=== PATIENT | male | born 1950 ===

== ENCOUNTER 2023-05-28 08:03 | Outpatient (AMB) | payer OTHER, SELFPAY ==
[2023-05-28 08:10] VITALS: BP 92/58; PULSE 104; TEMP 35.7; O2SAT 99; BMI 24.2
--- NOTE | 2023-05-28 08:10 | MHC.OFFWIV ---
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 Patient is complaining of shortness of breath for the past 3 days. He reports that he does not have a primary care physician and is on no medications. Patient has exertional shortness of breath. Nonproductive cough. Denies any symptoms of chest pain or diaphoresis. No nausea or vomiting. Nonsmoker. Physical Exam Vital Signs: Last Vital Signs Pulse 104 H 05/28/23 08:10 BP 92/58 L 05/28/23 08:10 Pulse Ox 99 05/28/23 08:10 Oxygen Delivery Method Room Air 05/28/23 08:10 BMI result Body Mass Index 24.2 Const General: cooperative and healthy appearing Nutritional Appearance: well nourished Orientation/consciousness: patient oriented x3 Limitations: no limitations HEENT Head: Yes normal to inspection Eyes General: appearance normal, both eyes and all related structures Neck Neck: Yes normal visual inspection Chest Chest palpation & inspection: normal palpation of entire chest wall Resp Other: Tachypnea. Effort & Inspection: normal respiratory effort and able to speak in complete sentences Cardio Rate: tachycardic Rhythm: regular rhythm Heart sounds: S1 normal heart sound present and S2 normal heart sound present Neuro General: patient oriented x3 Office Procedures EKG Details: Sinus tachycardia. [id number], Complete Assessment & Plan Assessment & Plan (1) Shortness of breath: Code(s): R06.02 - Shortness of breath Plan: Chest x-ray images were personally reviewed by me. No infiltrate seen. EKG ordered. Sinus tachycardia. Antibiotic and inhaler called in. Blood work has been ordered. If symptoms do not improve to follow-up here. Orders: Orders XR chest 2V Today R05.9 - Cough, unspecified Basic Metabolic Panel Today R06.02 - Shortness of breath Complete Blood Count no Diff Today R06.02 - Shortness of breath Liver Panel Today R06.02 - Shortness of breath Erythrocyte Sedimentation Rate Today R06.02 - Shortness of breath AMB EKG-In Office Today R07.9 - Chest pain, unspecified SARS-CoV2/FLU/RSV Today R43.9 - Unspecified disturbances of smell and taste Coding Level of Care Code Est Pt Level 4 (13455) Diagnoses Shortness of breath R06.02 CPT Codes EKG - CPT: 52647-[id number], Complete ([id number])
== END 2023-05-28 09:49 | disposition home or self-care (01) ==
PROVIDERS: Visit Provider Internal Medicine
DX: R06.02 Shortness of breath (principal)
CPT/HCPCS: 93000; 99214

== ENCOUNTER 2023-05-28 08:31 | Outpatient (REF) | payer OTHER, SELFPAY ==
--- NOTE | ~2023-05-28 | XR_ITS ---
EXAMINATION: XR CHEST CLINICAL INFORMATION: Cough, unspecified COMPARISON: None available. TECHNIQUE: 2 views of the chest were obtained. FINDINGS: The lungs are well expanded and clear. Heart size is normal. No pleural effusion. There is tortuosity of the thoracic aorta. There are minimal degenerative changes of the thoracic spine. XR/XR chest 2V IMPRESSION: No acute cardiopulmonary disease.
[2023-05-28 11:32] LABS: Hematocrit 45.4 % (42.0-52.0); Mean Corpuscular HGB Conc 35.2 g/dl (31.0-36.0); Mean Corpuscular Hemoglobin 28.6 pg (27.0-33.0); Mean Corpuscular Volume 81.1 fL (80.0-98.0); Mean Platelet Volume 8.9 fL (9.4-12.4); Platelet Count 220 X10*3/uL (160-400); Red Cell Distribution Width 13.1 % (11.0-16.0); White Blood Count 9.4 X10*3/uL (4.8-10.8)
[2023-05-28 11:53] LABS: Alanine Aminotransferase 28 U/L (0-40); Albumin Level 3.8 g/dL (3.5-5.0); Alkaline Phosphatase 79 U/L (39-117); Anion Gap 17 (12-20); Aspartate Amino Transferase 23 U/L (5-37); Bilirubin Direct 0.2 mg/dL (0.0-0.5); Bilirubin Total 0.5 mg/dL (0.0-1.0); Blood Urea Nitrogen 26 mg/dL (9-16); Calcium 9.8 mg/dL (8.4-10.2); Carbon Dioxide 22 mmol/L (22-29); Chloride 101 mmol/L (96-108); Estimated Glomerular Filt Rate 49; Potassium 5.1 mmol/L (3.3-5.1); Sodium 135 mmol/L (135-145); Total Protein 7.3 g/dL (6.5-8.0)
[2023-05-28 12:10] LABS: Erythrocyte Sedimentation Rate 7 MM/HR (0-15)
[2023-05-28 14:19] LABS: Glucose Random 483 mg/dL (60-115)
== END 2023-05-28 08:32 | disposition home or self-care (01) ==
LOC: HO.HMGCX 08:31
PROVIDERS: Visit Provider Internal Medicine
DX: R05.9 Cough, unspecified (principal); R06.02 Shortness of breath
CPT/HCPCS: 36415; 71046; 80048; 80076; 85027; 85652

== ENCOUNTER 2023-05-28 11:24 | Outpatient (REF) | payer OTHER, SELFPAY ==
[2023-05-28 12:21] LABS: Influenza A PCR NEGATIVE (Negative); Influenza B PCR NEGATIVE (Negative); Resp Syncy Virus RNA Qual PCR NEGATIVE (Negative); SARS COV2 PCR INHOUSE NEGATIVE (Negative)
== END 2023-05-28 11:25 | disposition home or self-care (01) ==
LOC: HO.LNP 11:24
PROVIDERS: Visit Provider Internal Medicine
DX: R43.9 Unspecified disturbances of smell and taste (principal); Z11.52 Encounter for screening for COVID-19
CPT/HCPCS: 0241U

== ENCOUNTER 2023-05-30 11:03 | Outpatient (AMB) | payer OTHER, SELFPAY ==
[2023-05-30 11:15] VITALS: BP 98/72; PULSE 90; O2SAT 98; BMI 24.1
--- NOTE | 2023-05-30 11:15 | MHC.PC.OV ---
Vital Signs 05/30/23 11:15 Height 5 ft 9 in Weight 163 lb BMI 24.1 BP 98/72 Blood Pressure Location Rt brachial Position Sitting Pulse 90 Pulse Source Pulse Oximeter Pulse Oximetry (%) 98 Oxygen Delivery Method Room Air Intake Visit Reasons: Diabetes, per Dr Abdiaziz Hayes Note: Pt is here today as a New Patient to [facility]/ DM Allergies No Known Allergies Allergy (Verified 05/30/23 11:46) Medication List - Last Reconciled 05/30/23 by XIOMARA Simpson albuterol sulfate 90 mcg/actuation (Ventolin HFA) 1 inh inhalation QID PRN azithromycin take 500 mg today (day 1), then 250 mg for 4 days (days 2-5) PO metformin 500 mg PO BID Tobacco use date assessed: 05/30/23 Fall risk assessment: No Falls in past year Last assessed Fall Risk: 05/30/23 Dental Screening Dental Screen Date: 05/30/23 Did you have a dental visit in the last 12 months?: Yes Did you have a dental problem in the last 6 months where you did not have access to dental care?: No Was dental information given to patient?: Patient has dentist HPI HPI Comments History of Present Illness Details Patient is a 73-year-old male in to [facility]. He was last seen at the walk-in 2 days prior to arrival for complaint of shortness of breath. He had a chest x-ray, was given azithromycin and albuterol sulfate and states that his shortness of breath has improved significantly. While at that appointment he had labs which demonstrated elevated blood sugar reading. At today's appointment the patient has an A1c of 12.6. This patient has not seen a primary care provider in 3 years. He is a new onset type 2 diabetic. His primary complaint is increased urinary frequency. At the appointment today he denies any medical history. Will need to collect medical records from previous provider. He will receive the Prevnar 20 pneumonia immunization shot in office today. He is up-to-date with his influenza and COVID vaccine. Is up-to-date with his shingle vaccine. He is due for a diabetic eye exam and podiatry evaluation. He will have an education session with a community nurse in our office in regard to administering insulin and how to take his blood sugar readings at home. He will be given referral to endocrinology until his sugars are able to stabilize. [facility] Medical History (Updated 05/30/23 @ 16:04 by XIOMARA Simpson) Diabetes Family History Brother Substance use disorder Social History Housing: House Patient Tobacco Use Status: Former Tobacco user e-Cigarette/Vaping Use: Never Used service: Yes Current occupational status: retired Cognitive needs: No Hearing needs: No Vision needs: Yes Questionnaire PHQ-9 Over the last 2 weeks, how often have you been bothered by any of the following problems? 1. Little interest or pleasure in doing things: not at all 2. Feeling down, depressed, or hopeless: not at all 3. Trouble falling or staying asleep, or sleeping too much: not at all 4. Feeling tired or having little energy: not at all 5. Poor appetite or overeating: not at all 6. Feeling bad about yourself - or that you are a failure or have let yourself or your family down: not at all 7. Trouble concentrating on things, such as reading the newspaper or watching television: not at all 8. Moving or speaking so slowly that other people could have noticed. Or the opposite - being so fidgety or restless that you have been moving around a lot more than usual: not at all 9. Thoughts that you would be better off or of hurting yourself in some way: not at all Total score: 0 Depression Screening Interpretation: Negative Depression Screening Done: Yes 85156 - PHQ-9 Billing: Yes Source: Developed by Drs. Cole Still, Jovanna Gabriel, Hugo Silva and colleagues, with an educational arturo from [email or web address]. Thrive Questionnaire Date Thrive assessed: 05/30/23 I am a: Patient What is your living situation today?: I have a steady place to live Within the past 12 months, did the food you bought not last and you didn't have the money to get more?: Never true Within the past 12 months, did you worry whether your food would run out before you got money to buy more?: Never true Do you have trouble paying for medicines?: No Do you have trouble getting transportation to medical appointments?: No Do you have trouble paying your heating and electricity bill?: No Do you have trouble taking care of your child, family member or friend?: No Do you have trouble with day-to-day activities such as bathing, preparing meals, shopping, managing finances, etc.?: No Are you currently unemployed and looking for a job?: No Are you interested in more education?: No AUDIT C Alcohol Use Questionnaire (AUDIT-C) 1. How often do you have a drink containing alcohol?: Never Total Score: 0 Review of Systems Const Details: Constitutional : No Weight loss, No Fever, No Chills, No Fatigue, No Malaise ENT/Mouth : No sore throat, No Rhinorrhea Eyes: No Eye Pain, No Swelling, No Redness Cardiovascular : No Chest Pain, No SOB, No Dyspnea on Exertion, No Orthopnea, No Edema, No Palpitations Respiratory : No Cough, No Sputum, No Wheezing Gastrointestinal : No Nausea, No Vomiting, No Diarrhea, No Constipation, No abdominal Pain, No Hematochezia, No Melena Genitourinary : No Dysuria, Admits urinary frequency, No Hematuria, Musculoskeletal : No joint pain, No Myalgias, No Joint Swelling Skin : No Skin Lesions, No rash Neuro : No Weakness, No Numbness, No Dizziness, No Headache Psych : No Anxiety/Panic, No Depression Heme/Lymph: No Bruising, No Bleeding,No Lymphadenopathy Endocrine : Admits Polyuria, No Polydipsia All other systems reviewed and are negative Physical exam (Primary Care) Vital Signs: Last Vital Signs Pulse 90 05/30/23 11:15 BP 98/72 05/30/23 11:15 Pulse Ox 98 05/30/23 11:15 Oxygen Delivery Method Room Air 05/30/23 11:15 Care Plan Goal for BP management: Patient will not be started on lisinopril at this time due to current blood pressure readings. Next steps: Patient will have blood pressure recheck in office in 1 day, and then again in 2 weeks. BMI result Body Mass Index 24.1 Tobacco/Smoking Status: Tobacco use Status Tobacco use date assessed 05/30/23 05/30/23 11:37 Patient Tobacco Use Status Former Tobacco user 05/30/23 11:37 e-Cigarette/Vaping Use Never Used 05/30/23 11:37 PHQ-9: PHQ-9 Score PHQ-9: Total score 0 05/30/23 16:00 Depression Screening Interpretation: Negative Thrive Assessment: Date of Thrive Assessment Date Thrive assessed 05/30/23 05/30/23 11:37 Const Other: Appearance: Alert.? Oriented X3.? No acute distress.? Eyes: Pupils equal, round and reactive to light.? Neck: Normal inspection.? Neck supple.? CVS: Normal heart rate and rhythm.? Pulses normal.? Respiratory: No respiratory distress.? Breath sounds normal.? Abdomen: Soft and nontender.? Skin: Skin warm and dry.? Normal skin color.? Normal skin turgor.? Neuro: Oriented X 3.? No motor deficit.? No sensory deficit. CN 2-12 intact Results AMB Hemoglobin A1c AMB Hemoglobin A1c 12.6 % Last Edit by Johanna Morgan CMA on 05/30/23 11:48 Immunizations pneumoc 20-clinton conj-dip cr(PF) 0.5 mL IM syringe Performing Provider: XIOMARA Simpson Performing Location[place] [facility] [place] [facility] Administered by: Johanna Morgan CMA on 05/30/23 12:27 Dose Route Admin Location Dispensed Lot Number Expiration Date NDC Tailor Helper 0.5 mL IM Right Deltoid 0.5 mL [id number] 08/07/24 [id number] [employer] ([employer]Novavax VIS Given Date VIS Provided VIS Publication Date 05/30/23 Single Vaccine 21 Eligibility Eligibility Date Funding Source Not [facility] Eligible 05/30/23 Private Results Reviewed Results Reviewed: Laboratory Last Values Hgb A1c (Clinic) 12.6 % (4.0-6.0) H 05/30/23 11:46 Assessment and Plan Assessment & Plan (1) Diabetes: Comment: This is a new diagnosis to the patient. His A1c in office is elevated significantly at 12.6. He was started on metformin in the walk-in clinic 2 days prior but states he had not taken the medication yet. He was instructed to start taking this medication and the common side effects associated with it. He is also prescribed insulin with a sliding scale with blood sugar readings to be taken before meals. He has an appointment with the Community nurse navigator on 05/31/2023 to go over education and how to take the medication and how to take his blood sugar readings properly. In addition he will have an education session on proper foods to eat diet techniques to lower blood sugar. The patient is agreeable to this plan. Code(s): E11.9 - Type 2 diabetes mellitus without complications Qualifiers: Diabetes mellitus complication status: with hyperglycemia Diabetes mellitus senior living insulin use: without senior living use Diabetes mellitus type: type 2 Qualified Code(s): E11.65 - Type 2 diabetes mellitus with hyperglycemia Plan Take your medications as prescribed. If you were prescribed antibiotics today, it is important that you take your medication to their entirety, do not skip any doses, do not finish them early. Follow-up with your primary care provider this week. Return to the emergency department with new or worsening symptoms. Such as fevers, chills, chest pain, shortness of breath, nausea, vomiting, dizziness, headache, vision changes, lethargy In case of emergency call 911 Orders: Orders AMB Hemoglobin A1c Today Z13.9 - Encounter for screening, unspecified TSH reflex Free T4 Today E11.9 - Type 2 diabetes mellitus without complications Vitamin D 25-OH (D2 and D3) Today E11.9 - Type 2 diabetes mellitus without complications Pneumococcal 20 Immunization Today Z23 - Encounter for immunization Microalbumin, Random (w Creat) Today E11.9 - Type 2 diabetes mellitus without complications PSA,Total (Free>4and<10) Today E11.9 - Type 2 diabetes mellitus without complications Medications: New blood sugar diagnostic (OneTouch Ultra Test strips) Test blood sugar 3 times per day 100 ea 5RF E11.9 - Type 2 diabetes mellitus without complications lancets (OneTouch Delica Plus Lancet) Test blood sugar 3 times per day 100 ea 5RF E11.9 - Type 2 diabetes mellitus without complications insulin lispro 1 sliding scale dose subcut USEASDIRECTD 15 mL 0RF blood-glucose meter (OneTouch Ultra2 Meter) As directed 1 ea 0RF E11.9 - Type 2 diabetes mellitus without complications Refilled metformin 500 mg PO BID 30 tabs 0RF Coding Level of Care Code Est Pt Level 3 (67946) Diagnoses Type 2 diabetes mellitus with hyperglycemia, without long-term current use of insulin E11.65 Diabetes mellitus complication status: with hyperglycemia 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
== END 2023-05-30 15:27 | disposition home or self-care (01) ==
PROVIDERS: PCP Nurse Practitioner Primary Care; Visit Provider Nurse Practitioner Primary Care
DX: E11.65 Type 2 diabetes mellitus with hyperglycemia (principal); Z23 Encounter for immunization
CPT/HCPCS: 83036; 90471; 90677; 99213

== ENCOUNTER 2023-06-06 11:34 | Outpatient (AMB) | payer OTHER, SELFPAY ==
[2023-06-06 11:42] VITALS: BP 90/60; PULSE 100; O2SAT 100; BMI 24.4
--- NOTE | 2023-06-06 11:42 | MHC.PC.OV ---
Vital Signs 06/06/23 11:42 Height 5 ft 9 in Weight 165 lb BMI 24.4 BP 90/60 Blood Pressure Location Rt brachial Position Sitting Pulse 100 Pulse Source Pulse Oximeter Pulse Oximetry (%) 100 Oxygen Delivery Method Room Air Intake Visit Reasons: 1 week Follow up DM Intake Note: Pt is here today for his 1 week f/u DM Allergies No Known Allergies Allergy (Verified 06/06/23 12:15) Medication List - Last Reconciled 06/06/23 by XIOMARA Simpson albuterol sulfate 90 mcg/actuation (Ventolin HFA) 1 inh inhalation QID PRN blood sugar diagnostic (OneTouch Ultra Test strips) Test blood sugar 3 times per day blood-glucose meter (Argantealuch Ultra2 Meter) As directed lancets (MoveaTouch Delica Plus Lancet) Test blood sugar 3 times per day metformin 500 mg PO BID Tobacco use date assessed: 05/30/23 Fall risk assessment: No Falls in past year Last assessed Fall Risk: 06/06/23 Dental Screening Dental Screen Date: 06/06/23 Did you have a dental visit in the last 12 months?: Yes Did you have a dental problem in the last 6 months where you did not have access to dental care?: Yes Was dental information given to patient?: Patient has dentist HPI HPI Comments History of Present Illness Details Patient is a 73-year-old male here for diabetic follow-up. This patient is a newly diagnosed type 2 diabetic. At his last office visit 1 week prior he had an A1c in office of 12.6. He had been started on 500 mg of metformin p.o. b.i.d., but had not started taking at this time. Patient states he has since started taking the metformin as prescribed. His random glucose today in office is 231. He has no complaints at the time of the appointment. The patient states that he has not had any side effects from the metformin, including any GI distress. He has an in office meeting today with the community nurse navigator to have an education session on how to properly take his blood sugar levels at home. Treatment plan will be for the patient to continue to take his metformin as prescribed and to take his sugar every day for the next week. He will follow-up in 1 week to evaluate his blood sugar levels and to adjust his regime if indicated. [facility] Medical History Diabetes Family History Brother Substance use disorder Social History Housing: House Patient Tobacco Use Status: Former Tobacco user e-Cigarette/Vaping Use: Never Used service: Yes Current occupational status: retired Cognitive needs: No Hearing needs: No Vision needs: Yes Questionnaire Thrive Questionnaire Date Thrive assessed: 05/30/23 Review of Systems Const Details: Constitutional : No Weight loss, No Fever, No Chills, No Fatigue, No Malaise Eyes: No Eye Pain, No Swelling, No Redness Cardiovascular : No Chest Pain, No SOB, No Dyspnea on Exertion, No Orthopnea, No Edema, No Palpitations Respiratory : No Cough, No Sputum, No Wheezing Gastrointestinal : No Nausea, No Vomiting, No Diarrhea, No Constipation, No abdominal Pain, No Hematochezia, No Melena Genitourinary : No Dysuria, No Urinary Frequency, No Hematuria, Musculoskeletal : No joint pain, No Myalgias, No Joint Swelling Skin : No Skin Lesions, No rash Neuro : No Weakness, No Numbness, No Dizziness, No Headache Psych : No Anxiety/Panic, No Depression Heme/Lymph: No Bruising, No Bleeding,No Lymphadenopathy Endocrine : No Polyuria, No Polydipsia All other systems reviewed and are negative Physical exam (Primary Care) Vital Signs: Last Vital Signs Pulse 100 06/06/23 11:42 BP 90/60 06/06/23 11:42 Pulse Ox 100 06/06/23 11:42 Oxygen Delivery Method Room Air 06/06/23 11:42 Care Plan Goal for BP management: Patient educated to drink more water. Educated to move and change positions slowly. He has been educated to take blood pressure measurements at home. BMI result Body Mass Index 24.4 Tobacco/Smoking Status: Tobacco use Status Tobacco use date assessed 05/30/23 06/06/23 11:42 Patient Tobacco Use Status Former Tobacco user 06/06/23 11:42 e-Cigarette/Vaping Use Never Used 06/06/23 11:42 Thrive Assessment: Date of Thrive Assessment Date Thrive assessed 05/30/23 06/06/23 11:42 Const Other: Appearance: Alert.? Oriented X3.? No acute distress.? Neck: Normal inspection.? Neck supple.? CVS: Normal heart rate and rhythm.? Pulses normal.? Respiratory: No respiratory distress.? Breath sounds normal.? Skin: Skin warm and dry.? Normal skin color.? Normal skin turgor.? Extremities: No lower extremity edema.? Neuro: Oriented X 3.? No motor deficit.? No sensory deficit. CN 2-12 intact Results AMB Random Glucose (hemocue) AMB Random Glucose (hemocue) 231 mg/dL Last Edit by Johanna Morgan CMA on 06/06/23 11:43 Results Reviewed Results Reviewed: Laboratory Last Values Random Glu (Clinic) 231 mg/dL 06/06/23 11:42 Reviewed results with patient. Assessment and Plan Assessment & Plan (1) Diabetes: Comment: Patient is a newly diagnosed type 2 diabetic has recently been started on 500 mg of metformin to be taken p.o. b.i.d. he has been taking this medication for the past week his random glucose in office today was 231. He had an office education session on how to take his blood sugar readings at home with his new glucometer. He will continue to take blood sugar measurements at home and will have a follow-up appointment 1 week. He has been educated on the signs of worsening symptoms and when to return to the office or when to report to the emergency room. He is agreeable to this plan Code(s): E11.9 - Type 2 diabetes mellitus without complications Qualifiers: Diabetes mellitus type: type 2 Diabetes mellitus senior living insulin use: without technician terminal and repeater use Diabetes mellitus complication status: with hyperglycemia Qualified Code(s): E11.65 - Type 2 diabetes mellitus with hyperglycemia Plan Follow-up in 1 week. Orders: Orders AMB Random Glucose (hemocue) Today E11.9 - Type 2 diabetes mellitus without complications Medications: Discontinued insulin aspart U-100 (Novolog FlexPen U-100 Insulin aspart) Discontinued Reason: No Longer Medically Relevant 1 sliding scale dose subcut USEASDIRECTD 15 mL 0RF insulin glargine (Lantus Solostar U-100 Insulin) Discontinued Reason: Entered in error 24 units (0.24 mL) subcut QAM 15 mL 0RF Coding Level of Care Code Est Pt Level 3 (67356) Diagnoses Type 2 diabetes mellitus with hyperglycemia, without long-term current use of insulin E11.65 Diabetes mellitus type: type 2 Diabetes mellitus senior living insulin use: without technician terminal and repeater use Diabetes mellitus complication status: with hyperglycemia Time Spent (min) 30
== END 2023-06-06 13:02 | disposition home or self-care (01) ==
LOC: HO.HMGC 11:34
PROVIDERS: PCP Nurse Practitioner Primary Care; Visit Provider Nurse Practitioner Primary Care
DX: E11.65 Type 2 diabetes mellitus with hyperglycemia (principal)
CPT/HCPCS: 82948; 99213

== ENCOUNTER 2023-06-07 09:49 | Outpatient (REF) | payer OTHER, SELFPAY ==
[2023-06-07 14:10] LABS: Alanine Aminotransferase 25 U/L (0-40); Albumin Level 4.1 g/dL (3.5-5.0); Alkaline Phosphatase 71 U/L (39-117); Anion Gap 15 (12-20); Aspartate Amino Transferase 24 U/L (5-37); Bilirubin Total 0.6 mg/dL (0.0-1.0); Blood Urea Nitrogen 23 mg/dL (9-16); Calcium 9.7 mg/dL (8.4-10.2); Carbon Dioxide 24 mmol/L (22-29); Chloride 101 mmol/L (96-108); Cholesterol 234 mg/dL (<200); Estimated Glomerular Filt Rate 50; Glucose Random 268 mg/dL (60-115); HDL Cholesterol 55 mg/dL (>40); LDL Cholesterol Calculated 150 mg/dL (<100); Potassium 4.1 mmol/L (3.3-5.1); Sodium 136 mmol/L (135-145); Total Protein 7.5 g/dL (6.5-8.0); Triglycerides 149 mg/dL (<150)
[2023-06-07 14:15] LABS: TSH reflex Free T4 2.28 uIU/mL (0.32-4.0)
[2023-06-07 14:16] LABS: Creatinine Urine 101.81 mg/dL; Microalbum/Creatinine Ratio Ur 22.5 ug/mg cr (<30)
[2023-06-07 14:26] LABS: PSA,Total (Free>4and<10) < 0.10 ng/mL (0.00-4.00)
[2023-06-12 13:07] LABS: Vitamin D 25-OH, D2 <4 ng/mL; Vitamin D 25-OH, D3 25 ng/mL; Vitamin D 25-OH, Total 25 ng/mL (30-100)
== END 2023-06-07 09:50 | disposition home or self-care (01) ==
LOC: HO.HMGCLDS 09:49
PROVIDERS: PCP Nurse Practitioner Primary Care; Visit Provider Nurse Practitioner Primary Care
DX: Z12.5 Encounter for screening for malignant neoplasm of prostate (principal); Z13.220 Encounter for screening for lipoid disorders; E11.9 Type 2 diabetes mellitus without complications
CPT/HCPCS: 36415; 80053; 80061; 82043; 82306; 82570; 84153; 84443

== ENCOUNTER 2023-06-13 11:21 | Outpatient (AMB) | payer OTHER, SELFPAY ==
[2023-06-13 11:27] VITALS: BP 100/64; PULSE 100; O2SAT 97; BMI 24.0
--- NOTE | 2023-06-13 11:27 | A.OFFPC_ITS ---
Vital Signs 06/13/23 11:27 06/13/23 12:08 Height 5 ft 9 in Weight 162 lb 8 oz BMI 24.0 BP 100/64 Blood Pressure Location Rt brachial Position Sitting Pulse 100 92 Pulse Source Pulse Oximeter Auscultation Pulse Oximetry (%) 97 Oxygen Delivery Method Room Air Intake Visit Reasons: Followup diabetes, ok per Robb Intake Note: Pt is here to follow up for his DM Allergies No Known Allergies Allergy (Verified 06/13/23 11:32) Medication List - Last Reconciled 06/13/23 by XIOMARA Simpson albuterol sulfate 90 mcg/actuation (Ventolin HFA) 1 inh inhalation QID PRN blood sugar diagnostic (Eventstagr.amTouch Ultra Test strips) Test blood sugar 3 times per day blood-glucose meter (Audasteruch Ultra2 Meter) As directed lancets (Eventstagr.amTouch Delica Plus Lancet) Test blood sugar 3 times per day metformin 500 mg PO BID Tobacco use date assessed: 06/13/23 Fall risk assessment: No Falls in past year Last assessed Fall Risk: 06/13/23 Dental Screening Dental Screen Date: 06/13/23 Did you have a dental visit in the last 12 months?: Yes Did you have a dental problem in the last 6 months where you did not have access to dental care?: No Was dental information given to patient?: Patient has dentist HPI HPI Comments History of Present Illness Details Patient is a 73-year-old male in today for a diabetic follow-up. He is a recently diagnosed diabetic type 2, and was started on metformin. He has had to education sessions with our community nurse navigator and is having difficulty learning how to check his blood sugar. He will have another Education today after this appointment. His in office POC was 259. He has no complaints of polyuria, dizziness, shortness of breath, chest pain, diarrhea, vomiting or constipation. [facility] Medical History Diabetes Family History Brother Substance use disorder Social History Housing: House Patient Tobacco Use Status: Former Tobacco user e-Cigarette/Vaping Use: Never Used service: Yes Current occupational status: retired Cognitive needs: No Hearing needs: No Vision needs: Yes Questionnaire PHQ-9 Over the last 2 weeks, how often have you been bothered by any of the following problems? 1. Little interest or pleasure in doing things: not at all 2. Feeling down, depressed, or hopeless: not at all 3. Trouble falling or staying asleep, or sleeping too much: not at all 4. Feeling tired or having little energy: not at all 5. Poor appetite or overeating: not at all 6. Feeling bad about yourself - or that you are a failure or have let yourself or your family down: not at all 7. Trouble concentrating on things, such as reading the newspaper or watching television: not at all 8. Moving or speaking so slowly that other people could have noticed. Or the opposite - being so fidgety or restless that you have been moving around a lot more than usual: not at all 9. Thoughts that you would be better off or of hurting yourself in some way: not at all Total score: 0 Depression Screening Interpretation: Negative Depression Screening Done: Yes 10710 - PHQ-9 Billing: Yes Source: Developed by Drs. Cole Still, Jovanna Gabriel, Hugo Silva and colleagues, with an educational arturo from [employer]. Thrive Questionnaire Date Thrive assessed: 06/13/23 I am a: Patient What is your living situation today?: I have a steady place to live Within the past 12 months, did the food you bought not last and you didn't have the money to get more?: Never true Within the past 12 months, did you worry whether your food would run out before you got money to buy more?: Never true Do you have trouble paying for medicines?: No Do you have trouble getting transportation to medical appointments?: No Do you have trouble paying your heating and electricity bill?: No Do you have trouble taking care of your child, family member or friend?: No Do you have trouble with day-to-day activities such as bathing, preparing meals, shopping, managing finances, etc.?: No Are you currently unemployed and looking for a job?: No Are you interested in more education?: No AUDIT C Alcohol Use Questionnaire (AUDIT-C) 1. How often do you have a drink containing alcohol?: Never Total Score: 0 JUDY-7 AMB Questionnaire JUDY-7 Date JUDY - 7 assessed: 06/13/23 Feeling nervous, anxious, or on edge: 0 = Not at all Not being able to stop or control worryin = Not at all Worrying too much about different things: 0 = Not at all Trouble relaxin = Not at all Being so restless that it is hard to sit still: 0 = Not at all Becoming easily annoyed or irritable: 0 = Not at all Feeling afraid as if something awful might happen: 0 = Not at all Total JUDY-7 score (0-4 normal; 5-9 mild; 10-14 moderate; 15-21 severe): 0 Source: Developed by Drs. Cole Still, Jovanna Gabriel, Hugo Silva and colleagues, with an educational arturo from [employer]. JUDY-7 Assessment Billing JUDY-7 Assessment Tool: JUDY-7 Assessment 91627 Review of Systems Const Details: Constitutional : No Weight loss, No Fever, No Chills, No Fatigue, No Malaise Eyes: No Eye Pain, No Swelling, No Redness Cardiovascular : No Chest Pain, No SOB, No Dyspnea on Exertion, No Orthopnea, No Edema, No Palpitations Respiratory : No Cough, No Sputum, No Wheezing Gastrointestinal : No Nausea, No Vomiting, No Diarrhea, No Constipation, No abdominal Pain, No Hematochezia, No Melena Genitourinary : No Dysuria, No Urinary Frequency, No Hematuria, Musculoskeletal : No joint pain, No Myalgias, No Joint Swelling Skin : No Skin Lesions, No rash Neuro : No Weakness, No Numbness, No Dizziness, No Headache Psych : No Anxiety/Panic, No Depression Heme/Lymph: No Bruising, No Bleeding,No Lymphadenopathy Endocrine : No Polyuria, No Polydipsia All other systems reviewed and are negative Physical exam (Primary Care) Vital Signs: Last Vital Signs Pulse 92 06/13/23 12:08 BP 100/64 06/13/23 11:27 Pulse Ox 97 06/13/23 11:27 Oxygen Delivery Method Room Air 06/13/23 11:27 Vital signs have been reviewed are stay BMI result Body Mass Index 24.0 Tobacco/Smoking Status: Tobacco use Status Tobacco use date assessed 06/13/23 06/13/23 11:36 Patient Tobacco Use Status Former Tobacco user 06/13/23 11:28 e-Cigarette/Vaping Use Never Used 06/13/23 11:28 PHQ-9: PHQ-9 Score PHQ-9: Total score 0 06/13/23 11:36 Depression Screening Interpretation: Negative Thrive Assessment: Date of Thrive Assessment Date Thrive assessed 06/13/23 06/13/23 11:36 Const Other: Appearance: Alert.? Oriented X3.? No acute distress.? Eyes: Pupils equal, round and reactive to light.? Neck: Normal inspection.? Neck supple.? CVS: Normal heart rate and rhythm.? Pulses normal.? Respiratory: No respiratory distress.? Breath sounds normal.? Abdomen: Soft and nontender.? Skin: Skin warm and dry.? Normal skin color.? Normal skin turgor.? Neuro: Oriented X 3.? No motor deficit.? No sensory deficit. CN 2-12 intact. Sensate to monofilament. During the review of systems and physical exam patient seems to be forgetful when mentioning things. He also seems to go off on tangents. Results AMB Random Glucose (hemocue) AMB Random Glucose (hemocue) 259 mg/dL Last Edit by JOCE Mullen 06/13/23 11:47 Results Reviewed Results Reviewed: Laboratory Last Values Random Glu (Clinic) 259 mg/dL 06/13/23 11:44 Assessment and Plan Assessment & Plan (1) Diabetes: Comment: Patient has been taking 500 mg p.o. b.i.d. of metformin over the past month. His in office sugar today was 259. Will increase his dosage of metformin at today's appointment. Patient has been educated on side effects of these medications. Code(s): E11.9 - Type 2 diabetes mellitus without complications Qualifiers: Diabetes mellitus complication status: with hyperglycemia Diabetes mellitus intermediate frame tender insulin use: without mcfp use Diabetes mellitus type: type 2 Qualified Code(s): E11.65 - Type 2 diabetes mellitus with hyperglycemia Plan: Take your medications as prescribed. If you were prescribed antibiotics today, it is important that you take your medication to their entirety, do not skip any doses, do not finish them early. Follow-up with your primary care provider this week. Return to the emergency department with new or worsening symptoms. Such as fevers, chills, chest pain, shortness of breath, nausea, vomiting, dizziness, headache, vision changes, lethargy In case of emergency call 911 (2) Forgetfulness: Comment: During review of systems and physical exam patient seems to struggle with recall at times. He is also having difficulty learning how to check his blood sugars at home. Will refer for neuro and psychiatric eval. Code(s): R68.89 - Other general symptoms and signs Plan Patient will follow-up in 1 month. Orders: Orders AMB Random Glucose (hemocue) Today E11.9 - Type 2 diabetes mellitus without complications Referrals Neuropsychiatry Referral R68.89 - Other general symptoms and signs Medications: Changed From metformin 500 mg PO BID 30 tabs 0RF To metformin 850 mg PO BID 90 tabs 0RF Coding Level of Care Code Est Pt Level 3 (36351) Diagnoses Type 2 diabetes mellitus with hyperglycemia, without long-term current use of insulin E11.65 Diabetes mellitus complication status: with hyperglycemia Diabetes mellitus intermediate frame tender insulin use: without intermediate frame tender use Diabetes mellitus type: type 2 Forgetfulness R68.89 Additional Codes JUDY-7 Assessment Billing - JUDY-7 Assessment Tool: JUDY-7 Assessment 62106 ([id number]) Time Spent (min) 30
[2023-06-13 12:08] VITALS: PULSE 92
== END 2023-06-13 12:55 | disposition home or self-care (01) ==
LOC: HO.HMGC 11:21
PROVIDERS: PCP Nurse Practitioner Primary Care; Visit Provider Nurse Practitioner Primary Care
DX: E11.65 Type 2 diabetes mellitus with hyperglycemia (principal); R68.89 Other general symptoms and signs
CPT/HCPCS: 82948; 99213

== ENCOUNTER 2023-06-14 09:21 | Outpatient (AMB) | payer OTHER, SELFPAY ==
--- NOTE | 2023-06-14 09:41 | AM.OFFVISNUR ---
Intake Intake Visit Reasons: glucose reading Intake Note: Pt in today for DM teaching. Reports I dont know what my sugar is bc I cant find the pokers. POC performed, education provided. Allergies No Known Allergies Allergy (Verified 06/13/23 11:32) Results AMB Fasting Glucose AMB Fasting Glucose 358 mg/dL Last Edit by Reji Jeffers RN on 06/14/23 09:52 Coding Level of Care Code Procedure Only Assessment & Plan Assessment & Plan Orders: Orders AMB Fasting Glucose Today Z13.9 - Encounter for screening, unspecified
== END 2023-06-14 10:12 | disposition home or self-care (01) ==
LOC: HO.HMGC 09:21
PROVIDERS: PCP Nurse Practitioner Primary Care; Visit Provider Nurse Practitioner Primary Care
DX: E11.9 Type 2 diabetes mellitus without complications (principal)
CPT/HCPCS: 82948

== ENCOUNTER 2023-07-15 09:57 | Outpatient (AMB) | payer OTHER, SELFPAY ==
[2023-07-15 09:59] VITALS: BP 122/72; PULSE 100; O2SAT 98; BMI 24.5
--- NOTE | 2023-07-15 09:59 | MHC.PC.OV ---
Vital Signs 07/15/23 09:59 Height 5 ft 9 in Weight 166 lb 2 oz BMI 24.5 BP 122/72 Blood Pressure Location Lt brachial Position Sitting Pulse 100 Pulse Source Pulse Oximeter Pulse Oximetry (%) 98 Oxygen Delivery Method Room Air Intake Visit Reasons: Followup diabetes, ok per Robb Intake Note: Pt is here today to f/u diabetes. Allergies No Known Allergies Allergy (Verified 07/15/23 10:46) Medication List - Last Reconciled 07/15/23 by XIOMARA Simpson albuterol sulfate 90 mcg/actuation (Ventolin HFA) 1 inh inhalation QID PRN atorvastatin 20 mg PO DAILY blood sugar diagnostic (OneTouch Ultra Test strips) Test blood sugar 3 times per day blood-glucose meter ([employer] Ultra2 Meter) As directed lancets (PetsDx Veterinary ImagingTouch Delica Plus Lancet) Test blood sugar 3 times per day lancets (Easy Touch Safety Lancets) Test blood sugar 3 times per day lisinopril 2.5 mg PO DAILY metformin 850 mg PO BID Tobacco use date assessed: 07/15/23 Fall risk assessment: No Falls in past year Last assessed Fall Risk: 07/15/23 Dental Screening Dental Screen Date: 07/15/23 Did you have a dental visit in the last 12 months?: Yes Did you have a dental problem in the last 6 months where you did not have access to dental care?: No Was dental information given to patient?: Patient has dentist HPI HPI Comments History of Present Illness Details Patient is a 73-year-old male in today for a diabetes follow-up. The patient is newly diagnosed diabetic, he has had several Education sessions on how to take his blood sugar readings at home. He was originally started on 500 mg p.o. b.i.d., and was titrated up to 850 mg p.o. b.i.d. at his previous appointment. He has referral to Ophthalmology and Podiatry ordered. The patient states that he is feeling better over the past month, not as tired or lethargic. He has been taking his metformin as prescribed, and is due for a new refill, will order. He still has difficulty with taking blood sugar measurements at home, and states that he was only able to get 1 reading at home over the past 3 weeks. His in office A1c today's 11.7. Patient is going to be started on lisinopril and atorvastatin. Patient would like to continue to try to limit sugar and bread consumption instead of increasing metformin dose this time. The patient again was educated on the importance of keeping blood sugar readings in range. The patient has no chief complaint at today's appointment. Will order community nurse navigator referral. [facility] Medical History Diabetes Family History Brother Substance use disorder Social History Housing: House Patient Tobacco Use Status: Former Tobacco user e-Cigarette/Vaping Use: Never Used service: Yes Current occupational status: retired Cognitive needs: No Hearing needs: No Vision needs: Yes Questionnaire Thrive Questionnaire Date Thrive assessed: 06/13/23 AUDIT C Alcohol Use Questionnaire (AUDIT-C) 1. How often do you have a drink containing alcohol?: Never 3. How often do you have six or more drinks on one occasion?: Never Total Score: 0 Score Reviewed/Action Taken: Yes JUDY-7 AMB Questionnaire JUDY-7 Date JUDY - 7 assessed: 06/13/23 Source: Developed by Drs. Cole Still, Jovanna Gabriel, Hugo Silva and colleagues, with an educational arturo from [employer]. Review of Systems Const Details: Constitutional : No Weight loss, No Fever, No Chills, No Fatigue, No Malaise ENT/Mouth : No sore throat, No Rhinorrhea Eyes: No Eye Pain, No Swelling, No Redness Cardiovascular : No Chest Pain, No SOB, No Dyspnea on Exertion, No Orthopnea, No Edema, No Palpitations Respiratory : No Cough, No Sputum, No Wheezing Gastrointestinal : No Nausea, No Vomiting, No Diarrhea, No Constipation, No abdominal Pain, No Hematochezia, No Melena Genitourinary : No Dysuria, No Urinary Frequency, No Hematuria, Musculoskeletal : No joint pain, No Myalgias, No Joint Swelling Skin : No Skin Lesions, No rash Neuro : No Weakness, No Numbness, No Dizziness, No Headache Psych : No Anxiety/Panic, No Depression Heme/Lymph: No Bruising, No Bleeding,No Lymphadenopathy Endocrine : Admits some Polyuria, No Polydipsia All other systems reviewed and are negative Physical exam (Primary Care) Vital Signs: Last Vital Signs Pulse 100 07/15/23 09:59 BP 122/72 07/15/23 09:59 Pulse Ox 98 07/15/23 09:59 Oxygen Delivery Method Room Air 07/15/23 09:59 Care Plan Goal for BP management: Patient will take blood pressure measurements at home. BMI result Body Mass Index 24.5 Tobacco/Smoking Status: Tobacco use Status Tobacco use date assessed 07/15/23 07/15/23 10:02 Patient Tobacco Use Status Former Tobacco user 07/15/23 09:59 e-Cigarette/Vaping Use Never Used 07/15/23 09:59 Thrive Assessment: Date of Thrive Assessment Date Thrive assessed 06/13/23 07/15/23 09:59 Const Other: Eyes: Pupils equal, round and reactive to light.?No photphobia ENT: Pharynx normal.?Full ROM Neck: Normal inspection.? Neck supple.? CVS: Normal heart rate and rhythm.? Pulses normal.? Respiratory: No respiratory distress.? Breath sounds normal.? Skin: Skin warm and dry.? Normal skin color.? Normal skin turgor.? Neuro: Oriented X 3.? No motor deficit.? No sensory deficit. Sensate to monofiliment. CN 2-12 intact Assessment and Plan Assessment & Plan (1) Diabetes: Comment: Patient will take 850 mg Metformin PO BID. Will add 10 mg empagliflozin He will try to adhere to a diabetic diet. He has been started on low-dose lisinopril, and atorvastatin. Patient has been instructed to try to take blood pressure measurements at home, will refer to community nurse navigation for assistance. Patient has referral to Ophthalmology and Podiatry. Code(s): E11.9 - Type 2 diabetes mellitus without complications Qualifiers: Diabetes mellitus complication status: with hyperglycemia Diabetes mellitus fdc insulin use: without fdc use Diabetes mellitus type: type 2 Qualified Code(s): E11.65 - Type 2 diabetes mellitus with hyperglycemia (2) Hyperlipidemia: Comment: Patient has been started on atorvastatin. Code(s): E78.5 - Hyperlipidemia, unspecified Qualifiers: Hyperlipidemia type: unspecified Qualified Code(s): E78.5 - Hyperlipidemia, unspecified Plan: Take your medications as prescribed. If you were prescribed antibiotics today, it is important that you take your medication to their entirety, do not skip any doses, do not finish them early. Follow-up with your primary care provider this week. Return to the emergency department with new or worsening symptoms. Such as fevers, chills, chest pain, shortness of breath, nausea, vomiting, dizziness, headache, vision changes, lethargy In case of emergency call 911 Plan Patient will follow-up in 3 months. Orders: Referrals Podiatry Referral E11.9 - Type 2 diabetes mellitus without complications Ophthalmology Referral E11.9 - Type 2 diabetes mellitus without complications Medications: New atorvastatin 20 mg PO DAILY 90 tabs 0RF lisinopril 2.5 mg PO DAILY 90 tabs 0RF Refilled metformin 850 mg PO BID 90 tabs 0RF Coding Level of Care Code Est Pt Level 3 (82390) Diagnoses Type 2 diabetes mellitus with hyperglycemia, without long-term current use of insulin E11.65 Diabetes mellitus complication status: with hyperglycemia Diabetes mellitus fdc insulin use: without dampener operator use Diabetes mellitus type: type 2 Hyperlipidemia, unspecified hyperlipidemia type E78.5 Hyperlipidemia type: unspecified Time Spent (min) 35
== END 2023-07-15 11:29 | disposition home or self-care (01) ==
PROVIDERS: PCP Nurse Practitioner Primary Care; Visit Provider Nurse Practitioner Primary Care
DX: E11.65 Type 2 diabetes mellitus with hyperglycemia (principal)
CPT/HCPCS: 83036; 99213

== ENCOUNTER 2023-09-04 12:55 | Outpatient (AMB) | payer OTHER, SELFPAY ==
[2023-09-04 12:59] VITALS: PULSE 111; TEMP 34.1; O2SAT 99
--- NOTE | 2023-09-04 12:59 | MHC.OFFWIV ---
Intake Vital Signs 09/04/23 12:59 Height 5 ft 9 in Pulse 111 H Pulse Source Pulse Oximeter Temp 93.4 F L Temp Source Temporal Artery Scan Pulse Oximetry (%) 99 Oxygen Delivery Method Nasal Cannula Oxygen Flow Rate 4 Intake Visit Reasons: EP SOB Intake Note: pt is here today for SOB Patient Tobacco Use Status: Former Tobacco user Allergies No Known Allergies Allergy (Verified 09/04/23 13:09) Do you need a note to return to daycare/school/sports/work: No HPI HPI Comments History of Present Illness Details 73-year-old man presents with severe shortness of breath that occurred while shopping next door. Patient was put on oxygen and is gasping for air on 4 L of oxygen. Vital signs show his temp at 93.4 degrees and were unable to obtain a blood pressure [facility] Medical History Diabetes Family History Brother Substance use disorder Social History Housing: House Patient Tobacco Use Status: Former Tobacco user e-Cigarette/Vaping Use: Never Used service: Yes Current occupational status: retired Cognitive needs: No Hearing needs: No Vision needs: Yes Review of Systems Const Reports lethargy Card Reports dyspnea (sudden onset, severe) Resp Reports dyspnea (sudden onset, severe) Physical Exam Vital Signs: Last Vital Signs Temp 93.4 F L 09/04/23 12:59 Pulse 111 H 09/04/23 12:59 Pulse Ox 99 09/04/23 12:59 Oxygen Delivery Method Nasal Cannula 09/04/23 12:59 Oxygen Flow Rate 4 09/04/23 12:59 Const General: acute distress respiratory and diaphoretic Resp Effort & Inspection: grunting Cardio Rate: regular rate Assessment & Plan Assessment & Plan (1) SOB (shortness of breath): Code(s): R06.02 - Shortness of breath Plan Patient was sent to emergency department by ambulance. Coding Level of Care Code Est Pt Level 3 (47003) Diagnoses SOB (shortness of breath) R06.02
== END 2023-09-04 14:05 | disposition home or self-care (01) ==
PROVIDERS: PCP Nurse Practitioner Primary Care; Visit Provider Physician Assistant Medical
DX: R06.02 Shortness of breath (principal)
CPT/HCPCS: 99213

== ENCOUNTER 2023-09-04 14:00 | Emergency (ER) | payer OTHER, SELFPAY ==
--- NOTE | 2023-09-04 | ECG_ITS ---
Test Reason : sob Blood Pressure : / mmHG Vent. Rate : 077 BPM Atrial Rate : 077 BPM P-R Int : 156 ms QRS Dur : 080 ms QT Int : 414 ms P-R-T Axes : 065 095 082 degrees QTc Int : 468 ms Normal sinus rhythm Rightward axis Borderline ECG When compared with ECG of 04-SEP-2023 14:21, No significant change was found Referred By: Alan oRwan Electronically Signed By:Humberto Walker
--- NOTE | ~2023-09-04 | XR_ITS ---
EXAMINATION: XR CHEST CLINICAL INFORMATION: Dyspnea COMPARISON: None available. TECHNIQUE: Frontal view of the chest was obtained. FINDINGS: No significant abnormality is noted involving the heart, lungs, mediastinum, bony thorax or soft tissues. XR/XR chest 1V IMPRESSION: Unremarkable chest examination.
[2023-09-04 14:16] VITALS: BP 128/80; BP 131/64; PULSE 80; PULSE 85; RESP 20; TEMP 37.1; O2SAT 96; O2SAT 98; BMI 20.7
[2023-09-04 14:42] LABS: MANUAL DIFF FLAG NO
[2023-09-04 14:44] LABS: Basophils Absolute Auto 0.1 X10*3/uL (0.0-0.2); Basophils Percent Auto 0.7 % (0-2); Eosinophils Percent Auto 0.5 % (0-4); Hematocrit 45.1 % (42.0-52.0); Hemoglobin 16.1 g/dl (14.0-18.0); Imm Gran Abs Auto 0.03 X10*3/uL (0.00-0.03); Imm Gran Pct Auto 0.3 % (0.0-0.4); Lymphocytes Absolute Auto 1.6 X10*3/uL (1.2-4.9); Lymphocytes Percent Auto 18.5 % (20-40); Mean Corpuscular HGB Conc 35.7 g/dl (31.0-36.0); Mean Corpuscular Hemoglobin 29.2 pg (27.0-33.0); Mean Corpuscular Volume 81.9 fL (80.0-98.0); Mean Platelet Volume 8.4 fL (9.4-12.4); Monocytes Absolute Auto 0.7 X10*3/uL (0.1-1.2); Monocytes Percent Auto 7.5 % (2-11); Neutrophils Absolute Auto 6.3 x10*3/uL (2.0-8.3); Neutrophils Percent Auto 72.5 % (45-73); Platelet Count 178 X10*3/uL (160-400); Red Blood Count 5.51 X10*6/uL (4.60-5.80); Red Cell Distribution Width 13.1 % (11.0-16.0); White Blood Count 8.7 X10*3/uL (4.8-10.8)
[2023-09-04 14:56] LABS: Estimated Average Glucose 237 mg/dL; Hemoglobin A1c % 9.9 % (<6.0)
[2023-09-04 15:06] LABS: Troponin-I High Sensitivity < 2.7 ng/L (<3.5-35.0)
[2023-09-04 15:08] LABS: Alanine Aminotransferase 15 U/L (0-40); Albumin Level 3.9 g/dL (3.5-5.0); Alkaline Phosphatase 75 U/L (39-117); Anion Gap 22 (12-20); Aspartate Amino Transferase 11 U/L (5-37); Bilirubin Total 1.1 mg/dL (0.0-1.0); Blood Urea Nitrogen 24 mg/dL (9-16); Carbon Dioxide 20 mmol/L (22-29); Chloride 105 mmol/L (96-108); Creatinine Clr Calc Pharmacy 30.1; Estimated Glomerular Filt Rate 35; Magnesium 2.4 mg/dL (1.6-2.6); Potassium 5.7 mmol/L (3.3-5.1); Sodium 141 mmol/L (135-145); Total Protein 7.2 g/dL (6.5-8.0)
[2023-09-04 15:10] LABS: Glucose Random 436 mg/dL (60-115)
--- NOTE | 2023-09-04 15:18 | ED.SOB ---
HPI - SOB/Dyspnea General Chief Complaint: Dyspnea Stated Complaint: DIFF BREATHING Time Seen by Provider: 09/04/23 15:17 History of Present Illness HPI Narrative: The patient is a 73-year-old man who lives alone in [place]. I believe he has a history of type 2 diabetes and has been on metformin. The diagnosis of diabetes seems to be relatively new. He believes he has only been on medications for a few months. The patient has also been started on empagliflozin (Sundeepdiance). This was started on July 18. The patient says that today he drove himself to a store. When he got to the store he felt short of breath. He was near an urgent care and so he went to the urgent care. At the urgent care he was felt to look short of breath and they called 911 and he was brought to the hospital. The patient has shortness of breath has improved so that he was not really feeling short of breath at the time I interviewed him. He denies any chest pain. No pleuritic pain. No cough or sputum. No abdominal pain, nausea, vomiting. He says he felt fine yesterday and ate normally yesterday. Related Data Previous Rx's Medication Instructions Recorded albuterol sulfate 90 mcg/actuation 1 inh inhalation QID PRN shortness 05/28/23 aerosol inhaler (Ventolin HFA) of breath or wheezing #8.5 grams blood sugar diagnostic (OneTouch #100 ea 05/30/23 Ultra Test strips) blood-glucose meter (OneTouch #1 ea 05/30/23 Ultra2 Meter) lancets 30 gauge (OneTouch Delica #100 ea 05/30/23 Plus Lancet) lancets 30 gauge (Easy Touch #200 ea 06/13/23 Safety Lancets) atorvastatin 20 mg tablet 20 mg PO DAILY #90 tabs 07/15/23 metformin 850 mg tablet 850 mg PO BID #90 tabs 07/15/23 empagliflozin 10 mg tablet 10 mg PO DAILY #90 tabs 07/18/23 (Jardiance) Allergies Allergy/AdvReac Type Severity Reaction Status Date / Time No Known Allergies Allergy Verified 09/04/23 14:21 [facility] Past Medical History Medical History Diabetes Family History Family History Brother Substance use disorder Social History Social History Housing: House Patient Tobacco Use Status: Former Tobacco user e-Cigarette/Vaping Use: Never Used Advance Directives: No service: Yes Current occupational status: retired Cognitive needs: No Hearing needs: No Vision needs: Yes Physical Exam Vital Signs: Vital Signs: Last Vital Signs Temp 98.0 F 09/04/23 22:48 Pulse 80 09/04/23 22:48 Resp 18 09/04/23 22:48 BP 128/70 09/04/23 22:48 Pulse Ox 96 09/04/23 22:48 O2 Del Method Room Air 09/04/23 22:48 BMI result Body Mass Index 20.7 Const: Other: Frail looking 73-year-old who was awake and alert. He had a somewhat vague affect but I think this is probably his baseline. He did not seem in acute distress. HEENT: Other: Mucous membranes looked possibly slightly dry. The face was symmetrical. Eyes: Other: Pupils were round equal, conjunctivae clear, extraocular movements intact Neck: Other: No JVD Resp: Effort & Inspection: normal respiratory effort Auscultation: clear to auscultation bilaterally Cardio: Rate: regular rate Rhythm: regular rhythm Heart sounds: S1 normal heart sound present and S2 normal heart sound present GI: Other: Abdomen is soft and nontender Skin: Other: Skin is pale and dry Neuro: Other: The patient is awake and alert. He is oriented to time and place. He has a vague affect and was a rambling historian but I think this is probably baseline personality. No obvious cranial nerve deficit. Moves his extremities symmetrically and seemed to steady on his feet Extrem: Other: No peripheral edema Medications Administered Discontinued Medications Generic Name Dose Route Start Last Admin Trade Name Freq PRN Reason Stop Dose Admin Sodium Chloride 1,000 mls @ 999 mls/hr 09/04/23 16:15 09/04/23 17:47 Ns IV 09/04/23 17:15 Infused .Q1H1M BETHANIE Infusion Sodium Chloride 1,000 mls @ 999 mls/hr 09/04/23 17:45 09/04/23 20:17 Ns IV 09/04/23 18:45 Infused .Q1H1M BETHANIE Infusion Lactated Ringer's 1,000 mls @ 999 mls/hr 09/04/23 19:15 09/04/23 21:37 Lr IV 09/04/23 20:15 Infused .Q1H1M BETHANIE Infusion Medical Decision Making Medical Decision Making [facility] Narrative: The patient is a 73-year-old male who apparently felt short of breath after he would driven himself to a store. He was near an urgent care center and he went to the urgent care center. At the an ambulance was called and he was brought here. Here he had no complaints of shortness of breath and he did not have much in the way of complaints at all. His workup showed metabolic abnormalities that were at first puzzling. He has a type 2 diabetic on metformin who was also recently started on Jardiance. His labs today showed a slight anion gap metabolic acidosis and a mild acute kidney injury. His urine showed mild ketones. His blood gas was not acidotic however. He was given 2 L of IV fluids with considerable improvement in his metabolic panel. His anion gap resolved. His creatinine improved from 1.9 to 1.43. His glucose improved from 436 to 254. I discussed the case with the hospitalist who thought that this was likely a case of something like euglycemic diabetic ketoacidosis provoked by an SGLT2 inhibitor, empagliflozin . Given the lack of significant acidosis we agreed the patient were feeling better and looked well that the primary management of this condition would be stopping his new medication. The patient was given third L of crystalloid. He felt considerably better and felt well enough to go home. He will be advised to stop this new medication and should follow up with his PCP soon. If he feel significantly worse he should return to the emergency room. Lab Data 09/04/23 14:34 09/04/23 18:46 Labs: Lab Results 09/04/23 09/04/23 09/04/23 Range/Units 14:34 14:35 16:06 WBC 8.7 (4.8-10.8) X10*3/uL RBC 5.51 (4.60-5.80) X10*6/uL Hgb 16.1 (14.0-18.0) g/dl Hct 45.1 (42.0-52.0) % MCV 81.9 (80.0-98.0) fL MCH 29.2 (27.0-33.0) pg MCHC 35.7 (31.0-36.0) g/dl RDW 13.1 (11.0-16.0) % Plt Count 178 (160-400) X10*3/uL MPV 8.4 L (9.4-12.4) fL Immature Gran % (Auto) 0.3 (0.0-0.4) % Neut % (Auto) 72.5 (45-73) % Lymph % (Auto) 18.5 L (20-40) % [place] % (Auto) 7.5 (2-11) % Eos % (Auto) 0.5 (0-4) % Baso % (Auto) 0.7 (0-2) % Lymph # (Auto) 1.6 (1.2-4.9) X10*3/uL [place] # (Auto) 0.7 (0.1-1.2) X10*3/uL Eos # (Auto) 0.0 (0.0-0.4) X10*3/uL Baso # (Auto) 0.1 (0.0-0.2) X10*3/uL Abs Immat Gran (auto) 0.03 (0.00-0.03) X10*3/uL Absolute Neuts (auto) 6.3 (2.0-8.3) x10*3/uL Absolute Nucleated RBC 0.000 (0.0-0.012) X10*3/uL Nucleated RBC % (auto) 0.0 (0.0-0.2) /100WBC VBG pH 7.46 H (7.32-7.43) VBG pCO2 28 mmHg VBG pO2 62 mmHg VBG HCO3 20 L (22-26) mmol/L VBG O2 Saturation 72.0 % VBG Base Excess -2.1 mmol/L Sodium 141 (135-145) mmol/L Potassium 5.7 H (3.3-5.1) mmol/L Chloride 105 (96-108) mmol/L Carbon Dioxide 20 L (22-29) mmol/L Anion Gap 22 H (12-20) BUN 24 H (9-16) mg/dL Creatinine 1.90 H (0.5-1.4) mg/dL Estim Creat Clear Calc 30.1 Estimated GFR 35 Random Glucose 436 H* (60-115) mg/dL Estimat Average Glucose 237 mg/dL Hemoglobin A1c % 9.9 H (<6.0) % Calcium 10.0 (8.4-10.2) mg/dL Magnesium 2.4 (1.6-2.6) mg/dL Total Bilirubin 1.1 H (0.0-1.0) mg/dL AST 11 (5-37) U/L ALT 15 (0-40) U/L Alkaline Phosphatase 75 (39-117) U/L Troponin I High Sens < 2.7 (<3.5-35.0) ng/L C-Reactive Protein 2.76 H (< or = 0.50) mg/dL B-Natriuretic Peptide 17 (<100) pg/mL Total Protein 7.2 (6.5-8.0) g/dL Albumin 3.9 (3.5-5.0) g/dL Beta-Hydroxybutyrate 2.70 H (0.02-0.27) mmol/L Urine Color Urine Appearance Urine pH (5.0-9.0) Ur Specific [place] (1.005-1.025) Urine Protein (Neg-Trace) mg/dL Urine Glucose (UA) (Negative) mg/dL Urine Ketones (Negative) mg/dL Urine Blood (Negative) Urine Nitrite (Negative) Ur Leukocyte Esterase (Negative) Urine RBC (0-2) /HPF Urine WBC (0-5) /HPF Ur Squamous Epith Cells (0-2) /HPF Urine Bacteria (None Seen) Hyaline Casts (0-2) /LPF Ethyl Alcohol mg/dL Influenza Type A (PCR) NEGATIVE (Negative) Influenza Type B (PCR) NEGATIVE (Negative) RSV RNA Qual (PCR) NEGATIVE (Negative) SARS-CoV-2 RNA (RT-PCR) NEGATIVE (Negative) 09/04/23 09/04/23 09/04/23 Range/Units 17:59 18:46 18:50 WBC (4.8-10.8) X10*3/uL RBC (4.60-5.80) X10*6/uL Hgb (14.0-18.0) g/dl Hct (42.0-52.0) % MCV (80.0-98.0) fL MCH (27.0-33.0) pg MCHC (31.0-36.0) g/dl RDW (11.0-16.0) % Plt Count (160-400) X10*3/uL MPV (9.4-12.4) fL Immature Gran % (Auto) (0.0-0.4) % Neut % (Auto) (45-73) % Lymph % (Auto) (20-40) % [place] % (Auto) (2-11) % Eos % (Auto) (0-4) % Baso % (Auto) (0-2) % Lymph # (Auto) (1.2-4.9) X10*3/uL [place] # (Auto) (0.1-1.2) X10*3/uL Eos # (Auto) (0.0-0.4) X10*3/uL Baso # (Auto) (0.0-0.2) X10*3/uL Abs Immat Gran (auto) (0.00-0.03) X10*3/uL Absolute Neuts (auto) (2.0-8.3) x10*3/uL Absolute Nucleated RBC (0.0-0.012) X10*3/uL Nucleated RBC % (auto) (0.0-0.2) /100WBC VBG pH 7.36 (7.32-7.43) VBG pCO2 35 mmHg VBG pO2 37 mmHg VBG HCO3 20 L (22-26) mmol/L VBG O2 Saturation 55.0 % VBG Base Excess -4.6 mmol/L Sodium 145 (135-145) mmol/L Potassium 4.4 D (3.3-5.1) mmol/L Chloride 114 H (96-108) mmol/L Carbon Dioxide 21 L (22-29) mmol/L Anion Gap 14 (12-20) BUN 22 H (9-16) mg/dL Creatinine 1.43 H (0.5-1.4) mg/dL Estim Creat Clear Calc 40.0 Estimated GFR 48 Random Glucose 254 H (60-115) mg/dL Estimat Average Glucose mg/dL Hemoglobin A1c % (<6.0) % Calcium 8.6 D (8.4-10.2) mg/dL Magnesium (1.6-2.6) mg/dL Total Bilirubin (0.0-1.0) mg/dL AST (5-37) U/L ALT (0-40) U/L Alkaline Phosphatase (39-117) U/L Troponin I High Sens (<3.5-35.0) ng/L C-Reactive Protein (< or = 0.50) mg/dL B-Natriuretic Peptide (<100) pg/mL Total Protein (6.5-8.0) g/dL Albumin (3.5-5.0) g/dL Beta-Hydroxybutyrate 1.89 H (0.02-0.27) mmol/L Urine Color Yellow Urine Appearance Clear Urine pH 5.5 (5.0-9.0) Ur Specific [place] >= 1.030 H (1.005-1.025) Urine Protein Negative (Neg-Trace) mg/dL Urine Glucose (UA) >=1000 H (Negative) mg/dL Urine Ketones 15 (Negative) mg/dL Urine Blood Negative (Negative) Urine Nitrite Negative (Negative) Ur Leukocyte Esterase Negative (Negative) Urine RBC 0-2 (0-2) /HPF Urine WBC 0-5 (0-5) /HPF Ur Squamous Epith Cells 0-2 (0-2) /HPF Urine Bacteria None Seen (None Seen) Hyaline Casts 0-2 (0-2) /LPF Ethyl Alcohol < 10 mg/dL Influenza Type A (PCR) (Negative) Influenza Type B (PCR) (Negative) RSV RNA Qual (PCR) (Negative) SARS-CoV-2 RNA (RT-PCR) (Negative) Discharge Plan Discharge Clinical Impression: Diabetic ketoacidosis Patient Disposition: Home, Self-Care Additional Instructions: I believe that you felt unwell today because of a new medication you have started recently. This medication is called Jardiance, or empaglifozin. I believe you have had a bad reaction to this medication and you should not take this medication again. You may continue your other medications. Please drink lot of fluids over the next couple of days. Please follow-up soon with your regular doctor to discuss this episode further. If at any point you feel weaker or just do not feel very well please return to the emergency room for further evaluation. Prescriptions: No Action (DME) lancets [Easy Touch Safety Lancets] 30 gauge misc See Rx Instructions .Route Qty: 200 1RF Rx Instructions: Test blood sugar 3 times per day Jardiance 10 mg tablet 10 mg PO DAILY Qty: 90 0RF metformin 850 mg tablet 850 mg PO BID Qty: 90 0RF atorvastatin 20 mg tablet 20 mg PO DAILY Qty: 90 0RF albuterol sulfate [Ventolin HFA] 90 mcg/actuation HFA aerosol inhaler 1 inh inhalation QID PRN (Reason: shortness of breath or wheezing) Qty: 8.5 1RF (DME) blood-glucose meter [OneTouch Ultra2 Meter] Misc See Rx Instructions .Route Qty: 1 0RF Rx Instructions: As directed (DME) OneTouch Ultra Test Strip See Rx Instructions .Route Qty: 100 5RF Rx Instructions: Test blood sugar 3 times per day (DME) lancets [OneTouch Delica Plus Lancet] 30 gauge misc See Rx Instructions .Route Qty: 100 5RF Rx Instructions: Test blood sugar 3 times per day Referrals: Robb Ness FNP [Nurse Practitioner] - (The patient had mild euglycemic diabetic ketoacidosis presumably secondary to Jardiance) Interventions: ED Discharge Assessment Last Done: 09/04/23 22:20 Discharge Date/Time: 09/04/23 23:09
[2023-09-04 15:23] LABS: Influenza A PCR NEGATIVE (Negative); Influenza B PCR NEGATIVE (Negative); Resp Syncy Virus RNA Qual PCR NEGATIVE (Negative); SARS COV2 PCR INHOUSE NEGATIVE (Negative)
--- NOTE | 2023-09-04 16:12 | ECG_ITS ---
Test Reason : dyspnea Blood Pressure : / mmHG Vent. Rate : 074 BPM Atrial Rate : 074 BPM P-R Int : 166 ms QRS Dur : 082 ms QT Int : 420 ms P-R-T Axes : 078 090 083 degrees QTc Int : 466 ms Normal sinus rhythm Rightward axis Low voltage QRS Borderline ECG No previous ECGs available Referred By: Alan Rowan Electronically Signed By:Humberto Walker
[2023-09-04 16:13] LABS: VBG Base Excess -2.1 mmol/L; VBG HCO3 20 mmol/L (22-26); VBG pCO2 28 mmHg; VBG pH 7.46 (7.32-7.43); VBG pO2 62 mmHg
[2023-09-04 16:14] LABS: Venous Blood Gas Refer to POC result
[2023-09-04 16:34] VITALS: PULSE 81; RESP 18; O2SAT 99
[2023-09-04] MEDS: 0.9 % Sodium Chloride 1,000 ML 999 ML IV ×2 (16:34→17:47)
[2023-09-04 17:23] LABS: B Type Natriuretic Peptide 17 pg/mL (<100)
[2023-09-04 18:03] VITALS: BP 126/73; PULSE 81; RESP 18; O2SAT 100
[2023-09-04 18:16] LABS: Appearance Urine Clear; Color Urine Yellow; Glucose Urine UA >=1000 mg/dL (Negative); Leukocyte Esterase Urine Negative (Negative); Nitrite Urine Negative (Negative); PH 5.5 (5.0-9.0); Specific Gravity - Urine >= 1.030 (1.005-1.025); UMIC TRIGGER UACC YES; Urine Blood Negative (Negative); Urine Ketones 15 mg/dL (Negative); Urine Protein Negative (Neg-Trace)
[2023-09-04 18:30] LABS: Bacteria Urine None Seen (None Seen); Hyaline Casts Urine 0-2 /LPF (0-2); RBC Urine 0-2 /HPF (0-2); Squamous Epithelial Cell Urine 0-2 /HPF (0-2); WBC Urine 0-5 /HPF (0-5)
[2023-09-04 18:55] LABS: VBG Base Excess -4.6 mmol/L; VBG HCO3 20 mmol/L (22-26); VBG pCO2 35 mmHg; VBG pH 7.36 (7.32-7.43); VBG pO2 37 mmHg
[2023-09-04 19:04] LABS: Venous Blood Gas Refer to POC result
[2023-09-04 19:07] LABS: Ethanol < 10 mg/dL
[2023-09-04 19:08] LABS: Anion Gap 14 (12-20); Beta-Hydroxybutyrate 1.89 mmol/L (0.02-0.27); Blood Urea Nitrogen 22 mg/dL (9-16); Calcium 8.6 mg/dL (8.4-10.2); Carbon Dioxide 21 mmol/L (22-29); Chloride 114 mmol/L (96-108); Estimated Glomerular Filt Rate 48; Glucose Random 254 mg/dL (60-115); Potassium 4.4 mmol/L (3.3-5.1); Sodium 145 mmol/L (135-145)
[2023-09-04] MEDS: Lactated Ringers 1,000 ML 999 ML IV (20:13)
[2023-09-04 20:16] VITALS: BP 115/61; PULSE 89; RESP 21; TEMP 37.2; O2SAT 98
[2023-09-04 21:27] LABS: C Reactive Protein 2.76 mg/dL (< or = 0.50)
[2023-09-04 22:20] VITALS: BP 128/70; PULSE 80; RESP 16; TEMP 36.7; O2SAT 97
[2023-09-04 22:48] VITALS: BP 128/70; PULSE 80; RESP 18; TEMP 36.7; O2SAT 96
== END 2023-09-04 23:09 | disposition home or self-care (01) ==
PROVIDERS: Emergency Medicine Emergency Medical Services; Emergency Provider Emergency Medicine
DX: E11.10 Type 2 diabetes mellitus with ketoacidosis without coma (principal); R06.02 Shortness of breath; Z79.84 Long term (current) use of oral hypoglycemic drugs; Z79.899 Other long term (current) drug therapy; Z03.818 Encounter for observation for suspected exposure to other biological agents ruled out
CPT/HCPCS: 0241U; 36415; 71045; 80048; 80053; 80307; 81001; 82010; 82803; 83036; 83735; 83880; 84484; 85025; 86140; 93005; 96360; 96361; 99285; J7120

== ENCOUNTER → 2023-09-04 16:21 | Outpatient (BNV) | payer OTHER, SELFPAY | PROVIDERS: Emergency Provider Emergency Medicine; Visit Provider Internal Medicine Cardiovascular Disease | DX: R06.00 Dyspnea, unspecified (principal) | CPT/HCPCS: 93010 ==

== ENCOUNTER 2023-09-19 11:33 | Outpatient (AMB) | payer OTHER, SELFPAY ==
[2023-09-19 11:35] VITALS: BP 64/42; PULSE 132; RESP 44; O2SAT 92; BMI 21.4
--- NOTE | 2023-09-19 11:35 | MHC.PC.OV ---
Vital Signs 09/19/23 11:35 Height 5 ft 9 in Weight 145 lb 2 oz BMI 21.4 BP 64/42 L Blood Pressure Location Lt brachial Position Sitting Respiration 44 H Pulse 132 H Pulse Oximetry (%) 92 Oxygen Delivery Method Room Air Intake Visit Reasons: [facility] [place] SOB Allergies No Known Allergies Allergy (Verified 10/25/23 11:44) Tobacco use date assessed: 07/15/23 Dental Screening Dental Screen Date: 07/15/23 HPI HPI Comments History of Present Illness Details Patient arrives at hospital discharge follow-up after metabolic ketoacidosis following initiation of a Jardiance medication with frequent urination and poor p.o. intake. Patient arrived to the appointment confuse, labored breathing, pale skin, blood pressure 68/42, pulse oximetry 92%, heart rate, 132, RR 44. Blood sugar 359. Denies chest pain. Chief complaint shortness of breath. Patient states that he felt fine driving to the appointment and when he got here started to have labored breathing. He reports taking 2 different medications this morning unknown. Patient has history of getting medications confused, is seen by visiting nurse services. Patient has referral for [facility]. 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 Patient needs evaluation by vp digital marketing social media and crm for ADL, medication management, confusion. Patient has had several teaching sessions in regard to taking blood sugar measurements at home. Patient unable to comprehend how to take blood sugar measurements and how to give correct corresponding amount of insulin. Patient unable to perform corrective measurement for hypo or hyperglycemia. For this reason patient has not been started on insulin. Ambulance was called patient is being sent to the emergency room. [facility] Medical History SOB (shortness of breath) Hyperlipidemia Descending aortic aneurysm Diabetes Surgical History No pertinent past surgical history Family History Brother Substance use disorder Social History Household Members: None Housing: House Do you presently have visiting nurse or other home services: Yes Patient Tobacco Use Status: Former Tobacco user e-Cigarette/Vaping Use: Never Used service: Yes Current occupational status: retired Cognitive needs: No Hearing needs: No Vision needs: Yes Questionnaire Thrive Questionnaire Date Thrive assessed: 06/13/23 JUDY-7 AMB Questionnaire JUDY-7 Date JUDY - 7 assessed: 06/13/23 Source: Developed by Drs. Cole Still, Jovanna Gabriel, Hugo Silva and colleagues, with an educational arturo from [employer]. Review of Systems Const All systems reviewed & are unremarkable except as noted in HPI and below Physical exam (Primary Care) Vital Signs: Last Vital Signs Pulse 132 H 09/19/23 11:35 Resp 44 H 09/19/23 11:35 BP 64/42 L 09/19/23 11:35 Pulse Ox 92 09/19/23 11:35 Oxygen Delivery Method Room Air 09/19/23 11:35 BMI result Body Mass Index 21.4 Tobacco/Smoking Status: Tobacco use Status Tobacco use date assessed 07/15/23 09/19/23 11:41 Patient Tobacco Use Status Former Tobacco user 09/19/23 11:41 e-Cigarette/Vaping Use Never Used 09/19/23 11:41 Thrive Assessment: Date of Thrive Assessment Date Thrive assessed 06/13/23 09/19/23 11:41 Const General: tired appearing HENMT Head: Yes normal to inspection Resp Effort & Inspection: tachypneic Results AMB Random Glucose (hemocue) AMB Random Glucose (hemocue) 359 mg/dL Last Edit by Ada Rowe CMA on 09/19/23 11:52 Results Reviewed Results Reviewed: Laboratory Last Values Random Glu (Clinic) 359 mg/dL 09/19/23 11:50 Assessment and Plan Assessment & Plan (1) SOB (shortness of breath): Comment: Patient has been sent to the ER via ambulance. Expect was called Code(s): R06.02 - Shortness of breath Orders: Orders AMB Random Glucose (hemocue) 09/19/23 E11.65 - Type 2 diabetes mellitus with hyperglycemia Medications: Discontinued metformin Discontinued Reason: Doctor's Order 850 mg PO BID 90 tabs 0RF Coding Level of Care Code Est Pt Level 3 (49442) Diagnoses SOB (shortness of breath) R06.02 Time Spent (min) 28
== END 2023-09-19 12:23 | disposition home or self-care (01) ==
LOC: HO.HMGC 11:33
PROVIDERS: PCP Nurse Practitioner Primary Care; Visit Provider Nurse Practitioner Primary Care
DX: R06.02 Shortness of breath (principal)
CPT/HCPCS: 82948; 99213

== ENCOUNTER 2023-09-19 12:37 | Emergency (ER) | payer OTHER, SELFPAY ==
[2023-09-19] VITALS (7 sets, daily range): BP systolic 113–126; BP diastolic 67–81; PULSE 73–94; RESP 16–21; TEMP 36.3–36.7; O2SAT 97–100; BMI 22.4
--- NOTE | ~2023-09-19 | CT_ITS ---
EXAMINATION: CT CHEST WITH CONTRAST CLINICAL INFORMATION: Possible mass. Abnormal chest x-ray COMPARISON: Frontal view of the chest 09/19/23 TECHNIQUE: Multidetector volumetric CT imaging of the chest was obtained after the administration of 65 mL of Omnipaque 350 intravenous contrast without immediate adverse reactions. Axial MIP volume rendering provided. Sagittal and coronal reformatted images were obtained. This CT examination was performed using dose optimization techniques as appropriate, variously including the following: *Automated exposure control *Adjustment of mA and/or kV according to patient size (this includes techniques or standardized protocols for targeted exams where dose is matched to indication/reason for exam; i.e. extremities or head) *Use of iterative reconstruction technique DLP: 230 mGy-cm FINDINGS: The study is markedly limited by motion. [employer]: There is tortuosity aorta. There is density in the left paraspinal region in the lower chest. LUNGS: No abnormality the trachea or mainstem bronchi. Severe centrilobular emphysema. No large mass or focal pneumonia. No significant abnormalities could be obscured by motion. MEDIASTINUM: There are no enlarged lymph nodes. There is no pericardial fluid. There is no abnormality esophagus. VASCULAR: There is extensive noncalcified plaque deforming the lumen of the descending aorta. There is a focal thrombosed abnormality along the posterior aspect of the mid thoracic aorta. The maximum external diameter of the thoracic aorta in the mid thoracic spine is 6.2 cm. There is some crescent-shaped noncalcified thrombosed aneurysm in the periphery of the distal thoracic aorta. No significant displaced intimal calcification. There is no erosion of the spine. There is no evidence of a mediastinal hematoma. PLEURA: No pleural fluid. No pneumothorax AXILLA: No lymphadenopathy. UPPER ABDOMEN: No suspicious abnormality. Limited study. Fatty change in the liver. OSSEOUS STRUCTURES: No suspicious focal lesion CT/CT chest w IV con IMPRESSION: Limited study. Marked emphysema. 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 There is a crescent of peripheral thrombus in the descending aorta. There is some ulcerated plaque. Recommend consultation with vascular surgery. Fleischner guidelines were followed.
--- NOTE | ~2023-09-19 | XR_ITS ---
EXAMINATION: XR CHEST CLINICAL INFORMATION: Shortness of breath COMPARISON: 09/04/2023 TECHNIQUE: 2 views of the chest were obtained. FINDINGS: The heart and pulmonary vessels appear normal. No consolidations or pleural effusions are seen. Again noted is tortuosity of the descending thoracic aorta. There is a possible rounded masslike density seen in the left paraspinal region which may merely represent a confluence of pulmonary veins, but a mass cannot be entirely excluded and a chest CT, preferably with contrast, would be useful for further evaluation. XR/XR chest 2V IMPRESSION: 1. No acute intrathoracic disease. 2. Question of left paraspinal mass. Chest CT, preferably with contrast, would be useful for further evaluation.
[2023-09-19 12:51] LABS: Glucose, Whole Blood 295 mg/dL (60-115)
--- NOTE | 2023-09-19 12:55 | ECG_ITS ---
Test Reason : sob Blood Pressure : / mmHG Vent. Rate : 074 BPM Atrial Rate : 074 BPM P-R Int : 160 ms QRS Dur : 080 ms QT Int : 402 ms P-R-T Axes : 076 089 068 degrees QTc Int : 446 ms Normal sinus rhythm Normal ECG When compared with ECG of 04-SEP-2023 16:21, No significant change was found Referred By: Kristan Israel Electronically Signed By:Humberto Walker
--- NOTE | 2023-09-19 12:56 | ED.SOB ---
HPI - SOB/Dyspnea General Chief Complaint: Recheck/Abnormal Lab/Rx Stated Complaint: HIGH BS 337,FROM MD OFFICE PER EMS Time Seen by Provider: 09/19/23 12:41 Source: patient Mode of arrival: EMS History of Present Illness HPI Narrative: 73-year-old male with history of diabetes presents via EMS from his physician's office and states that he felt somewhat short of breath when walking from his car to the doctor's office and states that he has been feeling mildly short of breath which requires him to breathe through his mouth instead of his nose for 2 days. He otherwise denies any fever, chills, nausea, vomiting, abdominal discomfort, chest pain/palpitations, diarrhea. Related Data Previous Rx's ?Medication ?Instructions ?Recorded albuterol sulfate 90 mcg/actuation 1 inh inhalation QID PRN shortness 05/28/23 aerosol inhaler (Ventolin HFA) of breath or wheezing #8.5 grams blood sugar diagnostic (OneTouch #100 ea 05/30/23 Ultra Test strips) blood-glucose meter (OneTouch #1 ea 05/30/23 Ultra2 Meter) lancets 30 gauge (OneTouch Delica #100 ea 05/30/23 Plus Lancet) lancets 30 gauge (Easy Touch #200 ea 06/13/23 Safety Lancets) atorvastatin 20 mg tablet 20 mg PO DAILY #90 tabs 07/15/23 metformin 850 mg tablet 850 mg PO BID #90 tabs 07/15/23 aspirin 81 mg capsule 81 mg PO DAILY #30 caps 09/19/23 clopidogrel 75 mg tablet (Plavix) 75 mg PO DAILY #30 tabs 09/19/23 Allergies Allergy/AdvReac Type Severity Reaction Status Date / Time No Known Allergies Allergy Verified 09/19/23 12:52 Review of Systems Review of Systems: Pertinent positives and negatives as stated in HPI PMFSH Past Medical History Source: nursing notes reviewed Medical History Diabetes Family History Family History Brother Substance use disorder Social History Social History Housing: House Patient Tobacco Use Status: Former Tobacco user Smoked in Last 30 Days: No e-Cigarette/Vaping Use: Never Used Use of substances other than those prescribed or required for medical reasons: No Advance Directives: No Advance Directives Information Provided: No service: Yes Current occupational status: retired Cognitive needs: No Hearing needs: No Vision needs: Yes Physical Exam Vital Signs: Vital Signs: Last Vital Signs Temp 98.0 F 09/19/23 18:32 Pulse 76 09/19/23 18:32 Resp 18 09/19/23 18:32 BP 119/81 09/19/23 18:32 Pulse Ox 99 09/19/23 18:32 O2 Del Method Room Air 09/19/23 18:32 BMI result Body Mass Index 22.4 VITAL SIGNS: Reviewed. GENERAL: Well developed, well nourished, in no acute distress. HEAD: Normocephalic/atraumatic EYES: PERRLA, EOMI EARS: Ext canals without abnormality NOSE: Nares patent bilateral OROPHARYNX: no oral lesions noted, posterior pharynx clear NECK: Supple, no adenopathy LUNGS: Normal breath sounds. No adventitious sounds or accessory muscle use. SpO2<99> CARDIOVASCULAR: Regular rate and rhythm without noted murmurs ABDOMEN: Soft, non-tender, non-distended with bowel sounds. MUSCULOSKELETAL: No tenderness, deformities, or effusions noted on gross inspection. EXTREMITIES: No cyanosis, clubbing or edema. SKIN: Inspection of the skin reveals no rashes NEUROLOGIC: Alert and oriented x 4. Strength and sensation to light touch were grossly intact x 4. Medications Administered Discontinued Medications Generic Name Dose Route Start Last Admin Trade Name Freq PRN Reason Stop Dose Admin Sodium Chloride 500 mls @ 999 mls/hr 09/19/23 18:15 09/19/23 18:30 Ns IV 09/19/23 18:45 999 mls/hr .Q31M BETHANIE Administration Iohexol 100 ml 09/19/23 17:18 09/19/23 17:18 Iohexol 350 Mg/Ml 100 Ml Infus..Btl IV 09/19/23 17:19 65 ml ONCE ONE Administration Medical Decision Making Medical Decision Making [facility] Narrative: 73-year-old male with history and clinical presentation, DDX: Viral illness, no clinical suspicion for pneumonia/COPD, possible CHF. I reviewed all investigations and hematologic indices are negative for leukocytosis/left shift/anemia/thrombocytopenia. Chemistry indices demonstrate known CKD without electrolyte or liver enzyme derangements, patient is noted be hyperglycemic without evidence of DKA or HHS. Chest x-ray without evidence of infiltrate or venous congestion but concerning for possible left paraspinal mass, therefore will follow-up with CT scan with IV contrast. On comparison, I suspect the reason this has not previously been identified is because they were one view chest x-rays. 1911: CT scan read as significant for midthoracic aneurysm, I discussed this with vascular surgery, Dr Hua, to include the detailed portion of the CT scan read and recommends discharge with dual antiplatelet therapy and follow-up in the office. All results and findings were discussed with the patient at bedside and he is otherwise stable for discharge to home. Differential Diagnosis Differential Diagnoses: The differential diagnosis associated with the presentation includes Please see the discussion above Admission/Observation Consideration of admission/observation: Escalation of care including admission/observation considered Please see the discussion above Lab Data MDM Lab Attestation statement: I reviewed the patient's lab results. Please see the discussion above 09/19/23 13:17 09/19/23 13:23 Labs: Lab Results 09/19/23 09/19/23 09/19/23 Range/Units 12:44 13:17 13:23 WBC 9.5 (4.8-10.8) X10*3/uL RBC 5.60 (4.60-5.80) X10*6/uL Hgb 16.4 (14.0-18.0) g/dl Hct 45.8 (42.0-52.0) % MCV 81.8 (80.0-98.0) fL MCH 29.3 (27.0-33.0) pg MCHC 35.8 (31.0-36.0) g/dl RDW 12.8 (11.0-16.0) % Plt Count 188 (160-400) X10*3/uL MPV 8.8 L (9.4-12.4) fL Immature Gran % (Auto) 0.3 (0.0-0.4) % Neut % (Auto) 60.3 (45-73) % Lymph % (Auto) 28.1 (20-40) % [place] % (Auto) 9.6 (2-11) % Eos % (Auto) 0.8 (0-4) % Baso % (Auto) 0.9 (0-2) % Lymph # (Auto) 2.7 (1.2-4.9) X10*3/uL [place] # (Auto) 0.9 (0.1-1.2) X10*3/uL Eos # (Auto) 0.1 (0.0-0.4) X10*3/uL Baso # (Auto) 0.1 (0.0-0.2) X10*3/uL Abs Immat Gran (auto) 0.03 (0.00-0.03) X10*3/uL Absolute Neuts (auto) 5.7 (2.0-8.3) x10*3/uL Absolute Nucleated RBC 0.000 (0.0-0.012) X10*3/uL Nucleated RBC % (auto) 0.0 (0.0-0.2) /100WBC Hold Purple Top Sodium 138 (135-145) mmol/L Potassium 4.0 (3.3-5.1) mmol/L Chloride 108 (96-108) mmol/L Carbon Dioxide 18 L (22-29) mmol/L Anion Gap 16 (12-20) BUN 24 H (9-16) mg/dL Creatinine 1.64 H (0.5-1.4) mg/dL Estim Creat Clear Calc 37.9 Estimated GFR 41 POC Glucose 295 H (60-115) mg/dL Random Glucose 292 H (60-115) mg/dL Calcium 9.6 D (8.4-10.2) mg/dL Total Bilirubin 1.0 (0.0-1.0) mg/dL AST 12 (5-37) U/L ALT 11 (0-40) U/L Alkaline Phosphatase 53 (39-117) U/L B-Natriuretic Peptide 17 (<100) pg/mL Total Protein 6.7 (6.5-8.0) g/dL Albumin 3.7 (3.5-5.0) g/dL 09/19/23 Range/Units 13:26 WBC (4.8-10.8) X10*3/uL RBC (4.60-5.80) X10*6/uL Hgb (14.0-18.0) g/dl Hct (42.0-52.0) % MCV (80.0-98.0) fL MCH (27.0-33.0) pg MCHC (31.0-36.0) g/dl RDW (11.0-16.0) % Plt Count (160-400) X10*3/uL MPV (9.4-12.4) fL Immature Gran % (Auto) (0.0-0.4) % Neut % (Auto) (45-73) % Lymph % (Auto) (20-40) % [place] % (Auto) (2-11) % Eos % (Auto) (0-4) % Baso % (Auto) (0-2) % Lymph # (Auto) (1.2-4.9) X10*3/uL [place] # (Auto) (0.1-1.2) X10*3/uL Eos # (Auto) (0.0-0.4) X10*3/uL Baso # (Auto) (0.0-0.2) X10*3/uL Abs Immat Gran (auto) (0.00-0.03) X10*3/uL Absolute Neuts (auto) (2.0-8.3) x10*3/uL Absolute Nucleated RBC (0.0-0.012) X10*3/uL Nucleated RBC % (auto) (0.0-0.2) /100WBC Hold Purple Top SEE NOTE Sodium (135-145) mmol/L Potassium (3.3-5.1) mmol/L Chloride (96-108) mmol/L Carbon Dioxide (22-29) mmol/L Anion Gap (12-20) BUN (9-16) mg/dL Creatinine (0.5-1.4) mg/dL Estim Creat Clear Calc Estimated GFR POC Glucose (60-115) mg/dL Random Glucose (60-115) mg/dL Calcium (8.4-10.2) mg/dL Total Bilirubin (0.0-1.0) mg/dL AST (5-37) U/L ALT (0-40) U/L Alkaline Phosphatase (39-117) U/L B-Natriuretic Peptide (<100) pg/mL Total Protein (6.5-8.0) g/dL Albumin (3.5-5.0) g/dL Independent Interpretation I performed an independent interpretation of an: EKG Interpretation: Normal sinus rhythm, HR-74, no STEMI, NC/QRS/QTC is within normal limits. No acute changes when compared to prior on 09/04/2023. Radiology Impression Discussion of test interpretation with radiology: I have reviewed the radiologist's reading. Radiologist Impression: Please see the discussion above External Record Review External record reviewed: Outpatient record, Prior outpatient labs and Prior outpatient radiology Chronic Conditions Patient?s care impacted by: Diabetes Critical Care Time Critical Care Time Critical Care Time: Yes Total Critical Care Time: 45 Attestation: I personally attest to this time spent taking care of the patient. Discharge Plan Discharge Clinical Impression: Hyperglycemia due to diabetes mellitus, Dyspnea, Aneurysm of thoracic aorta Patient Disposition: Home, Self-Care Instructions: Thoracic Aortic Aneurysm (ED), Dyspnea (ED), Diabetic Hyperglycemia (ED) Additional Instructions: 1. Resume all home medications as prescribed. 2. Follow-up with your primary care doctor and discuss the possibility cardiac testing such as a stress test. Return to the emergency room if you experience any worsening of symptoms. Prescriptions: New aspirin 81 mg capsule 81 mg PO DAILY Qty: 30 0RF clopidogrel [Plavix] 75 mg tablet 75 mg PO DAILY Qty: 30 0RF No Action (DME) lancets [Easy Touch Safety Lancets] 30 gauge misc See Rx Instructions .Route Qty: 200 1RF Rx Instructions: Test blood sugar 3 times per day metformin 850 mg tablet 850 mg PO BID Qty: 90 0RF atorvastatin 20 mg tablet 20 mg PO DAILY Qty: 90 0RF albuterol sulfate [Ventolin HFA] 90 mcg/actuation HFA aerosol inhaler 1 inh inhalation QID PRN (Reason: shortness of breath or wheezing) Qty: 8.5 1RF (DME) blood-glucose meter [OneTouch Ultra2 Meter] Misc See Rx Instructions .Route Qty: 1 0RF Rx Instructions: As directed (DME) OneTouch Ultra Test Strip See Rx Instructions .Route Qty: 100 5RF Rx Instructions: Test blood sugar 3 times per day (DME) lancets [OneTouch Delica Plus Lancet] 30 gauge misc See Rx Instructions .Route Qty: 100 5RF Rx Instructions: Test blood sugar 3 times per day Referrals: Michael Garcias FNP-BC [Primary Care Provider] - Ben Hua MD [Physician] - Print Language: Panamanian
[2023-09-19 13:21] LABS: MANUAL DIFF FLAG NO
[2023-09-19 13:27] LABS: Basophils Absolute Auto 0.1 X10*3/uL (0.0-0.2); Basophils Percent Auto 0.9 % (0-2); Eosinophils Absolute Auto 0.1 X10*3/uL (0.0-0.4); Eosinophils Percent Auto 0.8 % (0-4); Hematocrit 45.8 % (42.0-52.0); Hemoglobin 16.4 g/dl (14.0-18.0); Imm Gran Abs Auto 0.03 X10*3/uL (0.00-0.03); Imm Gran Pct Auto 0.3 % (0.0-0.4); Lymphocytes Absolute Auto 2.7 X10*3/uL (1.2-4.9); Lymphocytes Percent Auto 28.1 % (20-40); Mean Corpuscular HGB Conc 35.8 g/dl (31.0-36.0); Mean Corpuscular Hemoglobin 29.3 pg (27.0-33.0); Mean Corpuscular Volume 81.8 fL (80.0-98.0); Mean Platelet Volume 8.8 fL (9.4-12.4); Monocytes Absolute Auto 0.9 X10*3/uL (0.1-1.2); Monocytes Percent Auto 9.6 % (2-11); Neutrophils Absolute Auto 5.7 x10*3/uL (2.0-8.3); Neutrophils Percent Auto 60.3 % (45-73); Platelet Count 188 X10*3/uL (160-400); Red Cell Distribution Width 12.8 % (11.0-16.0); White Blood Count 9.5 X10*3/uL (4.8-10.8)
[2023-09-19 13:41] LABS: B Type Natriuretic Peptide 17 pg/mL (<100)
[2023-09-19 13:48] LABS: Alanine Aminotransferase 11 U/L (0-40); Albumin Level 3.7 g/dL (3.5-5.0); Alkaline Phosphatase 53 U/L (39-117); Anion Gap 16 (12-20); Aspartate Amino Transferase 12 U/L (5-37); Blood Urea Nitrogen 24 mg/dL (9-16); Calcium 9.6 mg/dL (8.4-10.2); Carbon Dioxide 18 mmol/L (22-29); Chloride 108 mmol/L (96-108); Creatinine Clr Calc Pharmacy 37.9; Estimated Glomerular Filt Rate 41; Glucose Random 292 mg/dL (60-115); Sodium 138 mmol/L (135-145); Total Protein 6.7 g/dL (6.5-8.0)
[2023-09-19] MEDS: iohexoL 350 MG/ML 100 ML INFUS..BTL IV (17:18)
[2023-09-19] MEDS: 0.9 % Sodium Chloride 500 ML 999 ML IV (18:30)
--- NOTE | 2023-09-19 18:45 | PC.NURSE ---
Patient alert and oriented, labors even and unlabored, vitals updated, NS started as ordered, patient reports no pain/needs at this time.
== END 2023-09-19 20:16 | disposition home or self-care (01) ==
PROVIDERS: Emergency Provider Student in an Organized Health Care Education/Training Program; PCP Nurse Practitioner Family
DX: R06.02 Shortness of breath (principal); I71.20 Thoracic aortic aneurysm, without rupture, unspecified; E11.65 Type 2 diabetes mellitus with hyperglycemia; R11.2 Nausea with vomiting, unspecified; Z79.4 Long term (current) use of insulin; Z79.899 Other long term (current) drug therapy
CPT/HCPCS: 36415; 71046; 71260; 80053; 82947; 83880; 85025; 93005; 96360; 99284; 99285; Q9967

== ENCOUNTER → 2023-09-19 12:55 | Outpatient (BNV) | payer OTHER, SELFPAY | PROVIDERS: Emergency Provider Student in an Organized Health Care Education/Training Program; PCP Nurse Practitioner Family; Visit Provider Internal Medicine Cardiovascular Disease | DX: R06.02 Shortness of breath (principal) | CPT/HCPCS: 93010 ==

== ENCOUNTER 2023-09-24 07:58 | Emergency (ER) | payer OTHER, SELFPAY ==
--- NOTE | ~2023-09-24 | XR_ITS ---
EXAMINATION: XR CHEST CLINICAL INFORMATION: Shortness of breath COMPARISON: Chest radiograph 09/19/[address] chest 09/19/2023 TECHNIQUE: Frontal view of the chest was obtained. FINDINGS: Heart size normal. Lungs are clear without infiltrates effusions or lung masses. A focal eccentric aneurysm of the descending thoracic aorta is seen but better imaged on prior studies. Incidental note made of calcifications in the right supraspinatus tendon. XR/XR chest 1V IMPRESSION: No acute intrathoracic disease. Eccentric focal 6.2 cm aneurysm of the descending thoracic aorta better seen on prior imaging studies. Vascular surgery consultation is recommended if this has not artery been obtained.
--- NOTE | 2023-09-24 08:04 | ECG_ITS ---
Test Reason : SOB Blood Pressure : / mmHG Vent. Rate : 077 BPM Atrial Rate : 077 BPM P-R Int : 162 ms QRS Dur : 082 ms QT Int : 388 ms P-R-T Axes : 071 081 070 degrees QTc Int : 439 ms Normal sinus rhythm Normal ECG When compared with ECG of 19-SEP-2023 13:00, No significant change was found Referred By: Ilda Ramirez Electronically Signed By:ABEL RAND
--- NOTE | 2023-09-24 08:05 | ED.SOB ---
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 Patient states that he was out on his back patio waiting for his visiting nurse, feeling in his usual state of health. His glucose was 290 this morning. His visiting nurse gave him breakfast. He did some errands and when he was trying to get out of the car he felt weak and short of breath when trying to pull himself out. No chest pain at the time. His breathing he reports has been more short than usual when he walks around or exerts himself. Improved when lying down and with rest. No leg swelling. He reports his blood sugars have been high at home and they are adjusting his diabetes medications. Denies any polyuria or polydipsia. He states he was a former smoker but has no formal COPD diagnosis. He denies any lightheadedness, focal weakness, dizziness. MD elicited complaint: shortness of breath Pertinent past history: COPD and diabetes Onset (ago): hour(s) Context: occurred during exertion Timing: improved Severity: moderate Exacerbating factors: exertion Relieving factors: rest Treatment prior to arrival: none Related Data Home oxygen amount: none Previous Rx's ?Medication ?Instructions ?Recorded albuterol sulfate 90 mcg/actuation 1 inh inhalation QID PRN shortness 05/28/23 aerosol inhaler (Ventolin HFA) of breath or wheezing #8.5 grams blood sugar diagnostic (OneTouch #100 ea 05/30/23 Ultra Test strips) blood-glucose meter (OneTouch #1 ea 05/30/23 Ultra2 Meter) lancets 30 gauge (OneTouch Delica #100 ea 05/30/23 Plus Lancet) lancets 30 gauge (Easy Touch #200 ea 06/13/23 Safety Lancets) atorvastatin 20 mg tablet 20 mg PO DAILY #90 tabs 07/15/23 metformin 850 mg tablet 850 mg PO BID #90 tabs 07/15/23 aspirin 81 mg capsule 81 mg PO DAILY #30 caps 09/19/23 clopidogrel 75 mg tablet (Plavix) 75 mg PO DAILY #30 tabs 09/19/23 Allergies Allergy/AdvReac Type Severity Reaction Status Date / Time No Known Allergies Allergy Verified 09/24/23 08:15 Review of Systems Review of Systems: Yes all other systems are reviewed and are negative [facility] Past Medical History Medical History (Updated 09/24/23 @ 13:17 by MELCHOR Bustamante) Descending aortic aneurysm Diabetes Family History Family History Brother Substance use disorder Social History Social History Housing: House Patient Tobacco Use Status: Former Tobacco user Smoked in Last 30 Days: No e-Cigarette/Vaping Use: Never Used Use of substances other than those prescribed or required for medical reasons: No Advance Directives: No Advance Directives Information Provided: No service: Yes Current occupational status: retired Cognitive needs: No Hearing needs: No Vision needs: Yes Physical Exam Vital Signs: Vital Signs: Last Vital Signs Temp 98.0 F 09/24/23 12:18 Pulse 77 09/24/23 12:18 Resp 17 09/24/23 12:18 BP 131/79 09/24/23 12:18 Pulse Ox 100 09/24/23 12:18 O2 Del Method Room Air 09/24/23 12:18 BMI result Body Mass Index 21.8 Appearance: Alert. Oriented X3. No acute distress. Head: normocephalic, atraumatic. Eyes: Pupils equal, round and reactive to light. ENT: Pharynx normal. No tonsillar swelling or exudate. Neck: Normal inspection. Neck supple. CVS: Normal heart rate and rhythm. Pulses normal. Respiratory: No respiratory distress. Breath sounds normal. Abdomen: Soft and nontender. +BS x4 Skin: Skin warm and dry. Normal skin color. Normal skin turgor. No rashes. Extremities: No lower extremity edema. No joint swelling. Neuro/psych: Oriented X 3. No motor deficit. No sensory deficit. CN II-XII intact. Normal speech and cognition. 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 No improved. No chest pain. Vital signs stable on arrival. Saturating 100% on room air with clear lungs. No evidence of COPD exacerbation on examination. His recent CT scan did show emphysematous changes. His EKG is unchanged from prior, doubt cardiac etiology. He states he has had decreased p.o. intake and seems to be somewhat deconditioned overall. His diabetes medications are being adjusted by his primary care doctor and he has been suffering from hyperglycemia. Does not appear to be DKA. Labs today showing hypomagnesemia of 1.4, he was given 2 g of Mag. Chest x-ray is clear. Troponin is negative. He was ambulated around the emergency department with continuous pulse oximetry and his O2 sat remained 98%. He was not short of breath. At this time comfortable discharge home with outpatient follow-up. Return precautions discussed. Differential Diagnosis Differential Diagnoses: The differential diagnosis associated with the presentation includes Acute CHF exacerbation, acute COPD exacerbation, ACS, pneumonia, anemia Admission/Observation Consideration of admission/observation: Escalation of care including admission/observation considered Lab Data [facility] Lab Attestation statement: I reviewed the patient's lab results. Normal CBC, hypomagnesemia, improving renal function 09/24/23 08:42 09/24/23 08:42 Labs: Lab Results 09/24/23 09/24/23 Range/Units 08:13 08:42 WBC 6.8 (4.8-10.8) X10*3/uL RBC 5.13 (4.60-5.80) X10*6/uL Hgb 14.9 (14.0-18.0) g/dl Hct 42.2 (42.0-52.0) % MCV 82.3 (80.0-98.0) fL MCH 29.0 (27.0-33.0) pg MCHC 35.3 (31.0-36.0) g/dl RDW 12.5 (11.0-16.0) % Plt Count 181 (160-400) X10*3/uL MPV 8.9 L (9.4-12.4) fL Immature Gran % (Auto) 0.6 H (0.0-0.4) % Neut % (Auto) 54.8 (45-73) % Lymph % (Auto) 34.4 (20-40) % [place] % (Auto) 7.4 (2-11) % Eos % (Auto) 1.5 (0-4) % Baso % (Auto) 1.3 (0-2) % Lymph # (Auto) 2.3 (1.2-4.9) X10*3/uL [place] # (Auto) 0.5 (0.1-1.2) X10*3/uL Eos # (Auto) 0.1 (0.0-0.4) X10*3/uL Baso # (Auto) 0.1 (0.0-0.2) X10*3/uL Abs Immat Gran (auto) 0.04 H (0.00-0.03) X10*3/uL Absolute Neuts (auto) 3.7 (2.0-8.3) x10*3/uL Absolute Nucleated RBC 0.000 (0.0-0.012) X10*3/uL Nucleated RBC % (auto) 0.0 (0.0-0.2) /100WBC Sodium 140 (135-145) mmol/L Potassium 3.9 (3.3-5.1) mmol/L Chloride 108 (96-108) mmol/L Carbon Dioxide 20 L (22-29) mmol/L Anion Gap 16 (12-20) BUN 29 H (9-16) mg/dL Creatinine 1.36 (0.5-1.4) mg/dL Estim Creat Clear Calc 44.4 Estimated GFR 51 POC Glucose 258 H (60-115) mg/dL Random Glucose 282 H (60-115) mg/dL Calcium 9.5 (8.4-10.2) mg/dL Magnesium 1.4 L* (1.6-2.6) mg/dL Total Bilirubin 0.9 (0.0-1.0) mg/dL Direct Bilirubin 0.4 (0.0-0.5) mg/dL AST 12 (5-37) U/L ALT 11 (0-40) U/L Alkaline Phosphatase 54 (39-117) U/L Troponin I High Sens < 2.7 (<3.5-35.0) ng/L B-Natriuretic Peptide 41 (<100) pg/mL Total Protein 6.5 (6.5-8.0) g/dL Albumin 3.6 (3.5-5.0) g/dL Independent Interpretation I performed an independent interpretation of an: EKG and Plain X-Ray Interpretation: Chest x-ray without focal infiltrate, agree with radiologist's read EKG with ventricular rate 77 beats per minute, normal MI interval, normal QTC, no change from prior done on September 18 Radiology Impression Discussion of test interpretation with radiology: I have reviewed the radiologist's reading. Radiologist Impression: CLINICAL INFORMATION: Shortness of breath COMPARISON: Chest radiograph 09/19/[address] chest 09/19/2023 TECHNIQUE: Frontal view of the chest was obtained. FINDINGS: Heart size normal. Lungs are clear without infiltrates effusions or lung masses. A focal eccentric aneurysm of the descending thoracic aorta is seen but better imaged on prior studies. Incidental note made of calcifications in the right supraspinatus tendon. XR/XR chest 1V IMPRESSION: No acute intrathoracic disease. Eccentric focal 6.2 cm aneurysm of the descending thoracic aorta better seen on prior imaging studies. Vascular surgery consultation is recommended if this has not artery been obtained. Independent Historian Clinical information obtained from an independent historian. History obtained from or confirmed by: EMS External Record Review External record reviewed: Office record, Outpatient record, Prior outpatient labs, Prior outpatient radiology and Primary care record Tests considered The following testing was considered but not selected: CTA considered Prescription Management I considered prescription management with: Pain Medication and Antibiotic Chronic Conditions Patient?s care impacted by: Diabetes and Other (AAA) Critical Care Time Critical Care Time Critical Care Time: No Discharge Plan Discharge Clinical Impression: SOB (shortness of breath), Hypomagnesemia, Hyperglycemia Patient Disposition: Home, Self-Care Instructions: Diabetic Hyperglycemia (ED), Shortness of Breath (ED) Additional Instructions: your labs, EKG and x-ray today were unremarkable your oxygen levels stayed normal while you ambulated recommend following up with your PCP this week If you develop new or worsening symptoms call 911 or come back to the ER for further evaluation. Prescriptions: No Action (DME) lancets [Easy Touch Safety Lancets] 30 gauge misc See Rx Instructions .Route Qty: 200 1RF Rx Instructions: Test blood sugar 3 times per day aspirin 81 mg capsule 81 mg PO DAILY Qty: 30 0RF clopidogrel [Plavix] 75 mg tablet 75 mg PO DAILY Qty: 30 0RF metformin 850 mg tablet 850 mg PO BID Qty: 90 0RF atorvastatin 20 mg tablet 20 mg PO DAILY Qty: 90 0RF albuterol sulfate [Ventolin HFA] 90 mcg/actuation HFA aerosol inhaler 1 inh inhalation QID PRN (Reason: shortness of breath or wheezing) Qty: 8.5 1RF (DME) blood-glucose meter [OneTouch Ultra2 Meter] Misc See Rx Instructions .Route Qty: 1 0RF Rx Instructions: As directed (DME) OneTouch Ultra Test Strip See Rx Instructions .Route Qty: 100 5RF Rx Instructions: Test blood sugar 3 times per day (DME) lancets [OneTouch Delica Plus Lancet] 30 gauge misc See Rx Instructions .Route Qty: 100 5RF Rx Instructions: Test blood sugar 3 times per day Referrals: Michael Garcias SALES SERVICE REPRESENTATIVE-BC [Primary Care Provider] - Print Language: Mohawk
[2023-09-24 08:09] VITALS: BP 103/64; BP 104/61; PULSE 80; PULSE 88; RESP 20; TEMP 35.6; O2SAT 100; BMI 21.8
[2023-09-24 08:18] LABS: Glucose, Whole Blood 258 mg/dL (60-115)
[2023-09-24 08:19] VITALS: BP 104/61; PULSE 84; RESP 19; TEMP 35.6; O2SAT 100
--- NOTE | 2023-09-24 08:36 | PC.NURSE ---
Pt coming from home via EMS, reports SOB on exertion and general weakness starting this morning. Pt reports he was trying to get out of his car this morning and due to dyspnea could not, had to call 911. Pt reports he was here a couple days ago for similar issue but is unsure what the problem was then. EMS reprots pt had high BGL reading of 390, IV placed 18G left AC. Pt is alert and oriented, breathing even and unlabored at rest, skin pale and dry. Pt denies CP, pain, fevers, N/V/D. No signs of acute resp distress at rest, 99-100% SPO2 RA.
[2023-09-24 08:48] LABS: MANUAL DIFF FLAG NO
[2023-09-24 09:05] LABS: Basophils Absolute Auto 0.1 X10*3/uL (0.0-0.2); Basophils Percent Auto 1.3 % (0-2); Eosinophils Absolute Auto 0.1 X10*3/uL (0.0-0.4); Eosinophils Percent Auto 1.5 % (0-4); Hematocrit 42.2 % (42.0-52.0); Hemoglobin 14.9 g/dl (14.0-18.0); Imm Gran Abs Auto 0.04 X10*3/uL (0.00-0.03); Imm Gran Pct Auto 0.6 % (0.0-0.4); Lymphocytes Absolute Auto 2.3 X10*3/uL (1.2-4.9); Lymphocytes Percent Auto 34.4 % (20-40); Mean Corpuscular HGB Conc 35.3 g/dl (31.0-36.0); Mean Corpuscular Volume 82.3 fL (80.0-98.0); Mean Platelet Volume 8.9 fL (9.4-12.4); Monocytes Absolute Auto 0.5 X10*3/uL (0.1-1.2); Monocytes Percent Auto 7.4 % (2-11); Neutrophils Absolute Auto 3.7 x10*3/uL (2.0-8.3); Neutrophils Percent Auto 54.8 % (45-73); Platelet Count 181 X10*3/uL (160-400); Red Blood Count 5.13 X10*6/uL (4.60-5.80); Red Cell Distribution Width 12.5 % (11.0-16.0); White Blood Count 6.8 X10*3/uL (4.8-10.8)
[2023-09-24 09:10] LABS: B Type Natriuretic Peptide 41 pg/mL (<100)
[2023-09-24 09:33] LABS: Troponin-I High Sensitivity < 2.7 ng/L (<3.5-35.0)
[2023-09-24 09:40] LABS: Alanine Aminotransferase 11 U/L (0-40); Albumin Level 3.6 g/dL (3.5-5.0); Alkaline Phosphatase 54 U/L (39-117); Anion Gap 16 (12-20); Aspartate Amino Transferase 12 U/L (5-37); Bilirubin Direct 0.4 mg/dL (0.0-0.5); Bilirubin Total 0.9 mg/dL (0.0-1.0); Blood Urea Nitrogen 29 mg/dL (9-16); Calcium 9.5 mg/dL (8.4-10.2); Carbon Dioxide 20 mmol/L (22-29); Chloride 108 mmol/L (96-108); Creatinine Clr Calc Pharmacy 44.4; Estimated Glomerular Filt Rate 51; Glucose Random 282 mg/dL (60-115); Magnesium 1.4 mg/dL (1.6-2.6); Potassium 3.9 mmol/L (3.3-5.1); Sodium 140 mmol/L (135-145); Total Protein 6.5 g/dL (6.5-8.0)
[2023-09-24 10:09] VITALS: BP 112/73; PULSE 71; RESP 18; TEMP 36.5; O2SAT 100
[2023-09-24] MEDS: Magnesium Sulfate/H2O 2 GM/50 ML PIGGYBACK IV (10:12)
[2023-09-24 12:18] VITALS: BP 131/79; PULSE 77; RESP 17; TEMP 36.7; O2SAT 100
[2023-09-24 14:06] VITALS: BP 115/69; PULSE 81; RESP 16; TEMP 36.7; O2SAT 97
== END 2023-09-24 14:20 | disposition home or self-care (01) ==
PROVIDERS: Physician Assistant; Emergency Provider Emergency Medicine; PCP Nurse Practitioner Family
DX: R06.02 Shortness of breath (principal); E83.42 Hypomagnesemia; E11.65 Type 2 diabetes mellitus with hyperglycemia; I74.09 Other arterial embolism and thrombosis of abdominal aorta; Z79.02 Long term (current) use of antithrombotics/antiplatelets; Z79.84 Long term (current) use of oral hypoglycemic drugs
CPT/HCPCS: 36415; 71045; 80048; 80076; 82947; 83735; 83880; 84484; 85025; 93005; 96365; 96366; 99284; 99285; J3475

== ENCOUNTER → 2023-09-24 08:04 | Outpatient (BNV) | payer OTHER, SELFPAY | PROVIDERS: Emergency Provider Emergency Medicine; PCP Nurse Practitioner Family; Visit Provider Internal Medicine | DX: R06.02 Shortness of breath (principal) | CPT/HCPCS: 93010 ==

== ENCOUNTER 2023-10-15 09:36 | Inpatient (IN) | payer OTHER, SELFPAY ==
[2023-10-15] VITALS (11 sets, daily range): BP systolic 85–130; BP diastolic 47–89; PULSE 61–147; RESP 13–20; TEMP 36.4–36.9; O2SAT 96–100; BMI 22.8
--- NOTE | ~2023-10-15 | CT_ITS ---
EXAMINATION: CT ANGIOGRAM OF THE CHEST WITH AND WITHOUT CONTRAST (CT PULMONARY ANGIOGRAM FOR PE) CLINICAL INFORMATION: Reason for Exam Hx descending aortic aneurysm, thrombus, syncope COMPARISON: CT chest from 09/19/2023 TECHNIQUE: Prior to contrast administration, noncontrast localization images were obtained. Subsequently, multidetector volumetric imaging was performed from the thoracic inlet to below the diaphragms following the administration of 65 mL Omnipaque 350 intravenous contrast. No contrast reaction reported Sagittal, coronal, and MIP oblique sagittal reformatted images were obtained on the CT workstation, uploaded to PACS, and reviewed. This CT examination was performed using dose optimization techniques as appropriate, variously including the following: *Automated exposure control *Adjustment of mA and/or kV according to patient size (this includes techniques or standardized protocols for targeted exams where dose is matched to indication/reason for exam; i.e. extremities or head) *Use of iterative reconstruction technique Total exam dose-length product 249 mGy-cm FINDINGS: Evaluation was performed as a pulmonary arterial angiogram and not an angiogram of the aorta. Contrast opacification of the aorta is suboptimal for diagnostic purposes. QUALITY OF STUDY/CONTRAST BOLUS: Satisfactory. PULMONARY ARTERIES: No pulmonary emboli. THORACIC AORTA: 4 contrast opacification. There is eccentric saccular aneurysm in the mid to descending thoracic aorta with a maximum diameter of approximately 6.0 cm which is stable. Ascending thoracic aorta is normal in caliber. Scattered atherosclerotic wall calcifications are seen. There is suggestion of a persistent large amount of mural thrombus within the saccular aneurysm. No evidence of leak or rupture LUNG: Severe centrilobular emphysema again seen No focal consolidation, nodules or masses. PLEURA: No pleural effusion or pneumothorax. MEDIASTINUM: Normal heart size. No pericardial effusion. No hilar or mediastinal lymphadenopathy. No evidence of septal bowing or right heart strain. CORONARY ARTERY CALCIFICATION: None visualized on this study. CHEST WALL/AXILLA: No axillary or internal mammary lymphadenopathy. OSSEOUS STRUCTURES: No acute or suspicious osseous abnormality. UPPER ABDOMEN: Fatty liver No reflux of contrast into the hepatic veins to suggest elevated right heart pressures. CT/CT angio chest PE protocol IMPRESSION: 1. No evidence of acute pulmonary embolus. 2. Stable eccentric saccular aneurysm of the mid to descending thoracic aorta with a maximum diameter of 6.0 cm. There is suggestion of a large amount of mural thrombus within the aneurysm. No evidence of leak or rupture. Evaluation of the aorta is suboptimal due to timing of the contrast bolus since this was performed as a CTA of the pulmonary arteries 3. Severe emphysema. VTE: negative.
--- NOTE | ~2023-10-15 | XR_ITS ---
EXAMINATION: XR CHEST CLINICAL INFORMATION: Weakness. Difficulty breathing COMPARISON: 09/24/2023 TECHNIQUE: Frontal view of the chest was obtained. FINDINGS: Lungs clear. Heart and pulmonary vessels normal. No congestive change. The previously noted focal eccentric aneurysm ascending thoracic aorta as seen on the CT chest 09/19/2023 is not well seen on this portable AP study. XR/XR chest 1V IMPRESSION: No active disease.
--- NOTE | 2023-10-15 09:46 | ECG_ITS ---
Test Reason : WEAKNESS Blood Pressure : / mmHG Vent. Rate : 068 BPM Atrial Rate : 000 BPM P-R Int : 000 ms QRS Dur : 072 ms QT Int : 408 ms P-R-T Axes : 000 078 055 degrees QTc Int : 433 ms Accelerated Junctional rhythm Abnormal ECG When compared with ECG of 24-SEP-2023 08:22, Junctional rhythm has replaced Sinus rhythm Referred By: Kirk Benito Electronically Signed By:Humberto Walker
[2023-10-15 10:11] LABS: MANUAL DIFF FLAG NO
[2023-10-15 10:12] LABS: Basophils Absolute Auto 0.1 X10*3/uL (0.0-0.2); Basophils Percent Auto 0.8 % (0-2); Eosinophils Absolute Auto 0.1 X10*3/uL (0.0-0.4); Hematocrit 38.2 % (42.0-52.0); Hemoglobin 13.8 g/dl (14.0-18.0); Imm Gran Abs Auto 0.01 X10*3/uL (0.00-0.03); Imm Gran Pct Auto 0.2 % (0.0-0.4); Lymphocytes Percent Auto 33.2 % (20-40); Mean Corpuscular HGB Conc 36.1 g/dl (31.0-36.0); Mean Corpuscular Hemoglobin 29.4 pg (27.0-33.0); Mean Corpuscular Volume 81.4 fL (80.0-98.0); Mean Platelet Volume 8.6 fL (9.4-12.4); Monocytes Absolute Auto 0.5 X10*3/uL (0.1-1.2); Monocytes Percent Auto 8.5 % (2-11); Neutrophils Absolute Auto 3.3 x10*3/uL (2.0-8.3); Neutrophils Percent Auto 55.3 % (45-73); Platelet Count 177 X10*3/uL (160-400); Red Blood Count 4.69 X10*6/uL (4.60-5.80); Red Cell Distribution Width 12.7 % (11.0-16.0); White Blood Count 5.9 X10*3/uL (4.8-10.8)
[2023-10-15 10:27] LABS: Alanine Aminotransferase 16 U/L (0-40); Albumin Level 3.8 g/dL (3.5-5.0); Alkaline Phosphatase 50 U/L (39-117); Anion Gap 17 (12-20); Aspartate Amino Transferase 15 U/L (5-37); Bilirubin Total 0.7 mg/dL (0.0-1.0); Blood Urea Nitrogen 28 mg/dL (9-16); Calcium 9.6 mg/dL (8.4-10.2); Carbon Dioxide 20 mmol/L (22-29); Chloride 110 mmol/L (96-108); Creatinine Clr Calc Pharmacy 49.7; Estimated Glomerular Filt Rate 59; Glucose Random 191 mg/dL (60-115); Sodium 143 mmol/L (135-145); Total Protein 6.6 g/dL (6.5-8.0)
--- NOTE | 2023-10-15 12:48 | ED.WEAKNESS ---
HPI - Weakness General Chief complaint: Weakness Stated complaint: Weakness, dizziness Time Seen by Provider: 10/15/23 09:42 Source: patient and EMS Mode of arrival: EMS Limitations: no limitations History of Present Illness HPI Narrative: a 73-year-old male came in by ambulance for evaluation a near syncopal episode and episode of generalized weakness with shortness of breath witnessed by his [facility] nurse at home this morning, patient stated that he felt generalized weakness and I felt that I could not move but no full LOC this event was witnessed by the nurse who stated that the patient was pale and unresponsive lasted for about 10- 15 minutes, patient in the emergency department now feels fine stated that this is his 4th visit to the ED for similar presentation, patient supposed to be evaluated by production material coordinator in the next week For episodes of shortness of breath. No CP, no SOB now, no lower extremity swelling or tenderness, no abdominal pain, no dysuria, no frequency urination. Patient had a history of descending aortic aneurysm found incidentally on the previous CT but currently patient has no chest pain or abdominal pain with stable H&H patient also declined any blood in the stool or urine Related Data Home Medications ?Medication ?Instructions ?Recorded ?Confirmed aspirin 81 mg tablet,delayed 81 mg PO DAILY 10/15/23 10/15/23 release empagliflozin 10 mg tablet 10 mg PO DAILY 10/15/23 10/15/23 (Jardiance) lisinopril 2.5 mg tablet 2.5 mg PO DAILY 10/15/23 10/15/23 metformin 850 mg tablet 850 mg PO BID 10/15/23 10/15/23 Previous Rx's ?Medication ?Instructions ?Recorded blood sugar diagnostic (OneTouch #100 ea 05/30/23 Ultra Test strips) blood-glucose meter (OneTouch #1 ea 05/30/23 Ultra2 Meter) lancets 30 gauge (OneTouch Delica #100 ea 05/30/23 Plus Lancet) lancets 30 gauge (Easy Touch #200 ea 06/13/23 Safety Lancets) atorvastatin 20 mg tablet 20 mg PO DAILY #90 tabs 07/15/23 clopidogrel 75 mg tablet (Plavix) 75 mg PO DAILY #30 tabs 09/19/23 Allergies Allergy/AdvReac Type Severity Reaction Status Date / Time No Known Allergies Allergy Verified 10/15/23 09:53 Review of Systems Review of Systems: All other systems are reviewed and are negative Constitutional: Reports as per HPI and Reports no additional constitutional complaints Eyes: Reports as per HPI and Reports no additional eye complaints Reports system reviewed and no additional complaints, except as documented Cardiovascular: Reports as per HPI and Reports no additional cardiovascular complaints Respiratory: Reports as per HPI and Reports no additional respiratory complaints Gastrointestinal: Reports as per HPI and Reports no additional gastrointestinal complaints Genitourinary: Reports no additional female genitourinary complaints Musculoskeletal: Reports no additional musculoskeletal complaints Skin/Breast: Reports system reviewed and no additional complaints, except as docu Psychiatric: Reports no additional psychiatric complaints Endocrine: Reports no additional endocrine complaints Hematologic/Lymphatic: Reports no additional hematologic/lymphatic complaints Allergic/Immunologic: Reports no additional allergic/immunologic complaints Reports system reviewed and no additional complaints, except as documented and Reports Abnormal speech present [facility] Past Medical History Medical History Descending aortic aneurysm Diabetes Family History Family History Brother Substance use disorder Social History Social History Housing: House Patient Tobacco Use Status: Former Tobacco user e-Cigarette/Vaping Use: Never Used Advance Directives: No Advance Directives Information Provided: No Do you have a plan to hurt others: No Plan service: Yes Current occupational status: retired Cognitive needs: No Hearing needs: No Vision needs: Yes Physical Exam Vital Signs: Vital Signs: Last Vital Signs Temp 97.5 F 10/15/23 15:39 Pulse 115 H 10/15/23 16:38 Resp 16 10/15/23 15:39 BP 112/89 10/15/23 16:38 Pulse Ox 99 10/15/23 15:39 O2 Del Method Room Air 10/15/23 15:39 BMI result Body Mass Index 22.8 Vital signs have been reviewed and appear to be correct. Blood pressure elevated. Heart rate normal. Respiratory rate normal. Temperature normal. Oxygen saturation normal. Appearance: Alert. Oriented X3. No acute distress. Head: Normal external exam. Normocephalic. Atraumatic. No Garcia signs noted. No raccoon eyes noted Eyes: PERRLA. EOMI. Conjunctiva and sclera normal. Eyelids normal. ENT: TM's Normal. Pharynx normal. Uvula midline. Moist mucous membranes. No trismus noted. No drooling noted. No muffled voice noted. Neck: Normal inspection. Neck supple. FROM. No adenopathy. Thyroid Normal. No meningeal signs. No neck mass noted. CVS: Normal heart rate and rhythm. Heart sound normal. No murmurs noted. Pulses normal throughout. Respiratory: No respiratory distress. Painless inspiration. Breath sounds normal. No wheezes/rales/rhonchi noted. Chest nontender. No accessory muscle usage noted or decreased air movement noted. Abdomen: Soft and nontender. Bowel sounds normal in all 4 quadrants. No distention noted. No organomegaly noted. No visible injury noted. Back: No CVA tenderness. Full range of motion noted. Skin: Skin warm and dry. Normal skin color. Normal skin turgor. No rashes/lesions/lacerations noted. Extremities: No lower extremity edema. Extremities exhibit normal range of motion. Extremities nontender. Neuro: Oriented X 3. Cranial nerve exam: II-XII are grossly intact No motor deficit. No sensory deficit. Reflexes normal. Course Reevaluation(s) Reevaluation #1: 73-year-old male came in for evaluation of near syncopal episode and generalized weakness. 1. Previous 3 ED visits for similar presentation with no hospitalization for further monitoring would admit the patient for further evaluation and cardiac monitoring. 2. Significant orthostatic change on the heart rate will hydrate the patient with IV fluids. 3. CT angio of the chest showing 6 cm descending aortic aneurysm which is stable with no leakage the result was reviewed with Dr. Hua who recommended to have outpatient follow-up in his office. case discussed with hospitalist will admit for further cardiac monitoring. Time: 16:46 Medications Administered Discontinued Medications Generic Name Dose Route Start Last Admin Trade Name Freq PRN Reason Stop Dose Admin Iohexol 65 ml 10/15/23 14:55 10/15/23 14:55 Iohexol 350 Mg/Ml 100 Ml Infus..Btl IV 10/15/23 14:56 65 ml ONCE ONE Administration Medical Decision Making Differential Diagnosis Differential Diagnoses: The differential diagnosis associated with the presentation includes ( Syncope, ACS, rupture aortic aneurysm , pneumonia, pneumothorax, CHF, Pulmonary embolism, dehydration, electrolyte derangement, severe anemia.) Admission/Observation Consideration of admission/observation: Escalation of care including admission/observation considered Consult Healthcare Provider Management of the patient was discussed with: Hospitalist (Dane) Lab Data MDM Lab Attestation statement: I reviewed the patient's lab results. 10/15/23 10:07 10/15/23 10:07 Labs: Lab Results 10/15/23 10/15/23 Range/Units 10:07 13:05 WBC 5.9 (4.8-10.8) X10*3/uL RBC 4.69 (4.60-5.80) X10*6/uL Hgb 13.8 L (14.0-18.0) g/dl Hct 38.2 L (42.0-52.0) % MCV 81.4 (80.0-98.0) fL MCH 29.4 (27.0-33.0) pg MCHC 36.1 H (31.0-36.0) g/dl RDW 12.7 (11.0-16.0) % Plt Count 177 (160-400) X10*3/uL MPV 8.6 L (9.4-12.4) fL Immature Gran % (Auto) 0.2 (0.0-0.4) % Neut % (Auto) 55.3 (45-73) % Lymph % (Auto) 33.2 (20-40) % [place] % (Auto) 8.5 (2-11) % Eos % (Auto) 2.0 (0-4) % Baso % (Auto) 0.8 (0-2) % Lymph # (Auto) 2.0 (1.2-4.9) X10*3/uL [place] # (Auto) 0.5 (0.1-1.2) X10*3/uL Eos # (Auto) 0.1 (0.0-0.4) X10*3/uL Baso # (Auto) 0.1 (0.0-0.2) X10*3/uL Abs Immat Gran (auto) 0.01 (0.00-0.03) X10*3/uL Absolute Neuts (auto) 3.3 (2.0-8.3) x10*3/uL Absolute Nucleated RBC 0.000 (0.0-0.012) X10*3/uL Nucleated RBC % (auto) 0.0 (0.0-0.2) /100WBC Sodium 143 (135-145) mmol/L Potassium 4.0 (3.3-5.1) mmol/L Chloride 110 H (96-108) mmol/L Carbon Dioxide 20 L (22-29) mmol/L Anion Gap 17 (12-20) BUN 28 H (9-16) mg/dL Creatinine 1.20 (0.5-1.4) mg/dL Estim Creat Clear Calc 49.7 Estimated GFR 59 Random Glucose 191 H (60-115) mg/dL Calcium 9.6 (8.4-10.2) mg/dL Total Bilirubin 0.7 (0.0-1.0) mg/dL AST 15 (5-37) U/L ALT 16 (0-40) U/L Alkaline Phosphatase 50 (39-117) U/L Troponin I High Sens 4.0 (<3.5-35.0) ng/L Total Protein 6.6 (6.5-8.0) g/dL Albumin 3.8 (3.5-5.0) g/dL Urine Color Yellow Urine Appearance Clear Urine pH 7.0 (5.0-9.0) Ur Specific [place] 1.015 (1.005-1.025) Urine Protein Negative (Neg-Trace) mg/dL Urine Glucose (UA) 500 H (Negative) mg/dL Urine Ketones Negative (Negative) mg/dL Urine Blood Negative (Negative) Urine Nitrite Negative (Negative) Ur Leukocyte Esterase Negative (Negative) Influenza Type A (PCR) NEGATIVE (Negative) Influenza Type B (PCR) NEGATIVE (Negative) RSV RNA Qual (PCR) NEGATIVE (Negative) SARS-CoV-2 RNA (RT-PCR) NEGATIVE (Negative) Independent Interpretation I performed an independent interpretation of an: Plain X-Ray ( Chest: No acute intrathoracic pathology.) Radiology Impression Discussion of test interpretation with radiology: I have reviewed the radiologist's reading. Discharge Plan Discharge Clinical Impression: Near syncope, Orthostatic dizziness, Descending thoracic aortic aneurysm Patient Disposition: Admitted As Inpatient Print Language: Japanese
[2023-10-15 13:14] LABS: Appearance Urine Clear; Color Urine Yellow; Glucose Urine UA 500 mg/dL (Negative); Leukocyte Esterase Urine Negative (Negative); Nitrite Urine Negative (Negative); Specific Gravity - Urine 1.015 (1.005-1.025); Urine Blood Negative (Negative); Urine Ketones Negative (Negative); Urine Protein Negative (Neg-Trace)
[2023-10-15 13:49] LABS: Influenza A PCR NEGATIVE (Negative); Influenza B PCR NEGATIVE (Negative); Resp Syncy Virus RNA Qual PCR NEGATIVE (Negative); SARS COV2 PCR INHOUSE NEGATIVE (Negative)
[2023-10-15] MEDS: iohexoL 350 MG/ML 100 ML INFUS..BTL 65 ML IV (14:55)
--- NOTE | 2023-10-15 16:02 | PHA.MEDREC ---
Pharmacy Consult ? Medication Reconciliation Pharmacy has completed the medication reconciliation. Patient has no idea what he takes. I contaced his current Pharm[facility] and his previous pharmacy [facility] in [place] to confirm medications. [facility] has recent prescriptions for Aspirin, Plavix and Jaridance. [facility] has prescriptions filled on 07/16/23 for atorvastatin x 90 days, lisinopril 2.5 mg x 90 days and metformin 850 mg x 45 day. I left metformin on his list as he says he takes a medications for diabetes but he has most likely ran out of the medication. Saskia Schmidt, PharmD
[2023-10-15] MEDS: 0.9 % Sodium Chloride 1,000 ML 999 ML IV (17:02)
--- NOTE | 2023-10-15 17:35 | P.HPHOSP_ITS ---
<Statement entered by Jer Guzman MD - 10/23/23 07:19> The patient was seen and evaluated with MELCHOR Joe. I agree with her note, assessment and plan with the following. In summary, A 73 years old male with PMH of DM2, HTN, PAD on DAP, Descending TAA who presents with near syncope and found to have positive orthostatic hypotension. # Near syncope 2/2 Orthostatic hypotension could be related to thoracic aortic aneurysm which he has outpatient follow up planned for it and possible intervention Give IVF follow orthostatic vitals Keep on Tele PT evaluation Rest of evaluations by PA note. History of Present Illness Date of Service: 10/15/23 Attending physician on admission: Jer Guzman Chief Complaint: medical management 73-year-old male with history of aai-ziwrome-atxkdxtis type 2 diabetes, hypertension, peripheral artery disease on dual antiplatelet therapy, descending thoracic aortic aneurysm, hyperlipidemia presented to the ED earlier today for evaluation of positional lightheadedness that started this morning. He states he has been experiencing positional weakness and dyspnea for several weeks and has been seen in the ER multiple times for this. However, today, lightheadedness was very concerning so he returned to the ED for evaluation. He denies any fevers, chills, recent illness, urinary symptoms, diarrhea, nausea, vomiting, melena, hematochezia, cough, palpitations, chest pain. On arrival, vital signs stable the was found to be significantly orthostatic with heart rate increasing from 73-147 upon standing and blood pressure dropping 130/61 to 85/65 when going from lying to sitting. Hematology studies shows a mild normocytic anemia with H/H 13.8/38.2 no other significant abnormality. Renal function baseline, consistent with CKD stage 3. Glucose 191, no hypoglycemia. Hepatic function normal. Troponin for. Urinalysis unremarkable. Negative for COVID- 19, RSV, influenza. Chest x-ray negative. CTA chest negative for PE but shows stable eccentric saccular aneurysm of mid 2 descending thoracic aorta with a maximum diameter of 6 cm with suggestion of large amount of mural thrombus within the aneurysm but no evidence of rupture or leak. There was also severe emphysema. He bishop be observed overnight for orthostatic hypotension with ivf. Review of Systems 2 Review of Systems: General: No fevers, malaise, unintentional weight loss HEENT: No blurred vision, diplopia. No sore throat, nasal congestion, rhinorrhea, sinus pain, ear pain Cardiovascular: No chest pain, palpitations, or leg edema Respiratory: +dyspnea. No wheezing, cough GI: No abdominal pain, nausea, vomiting, diarrhea, constipation, melena, hematochezia : No dysuria, hematuria, increased urinary frequency, decreased urinary output MSK: No myalgia, back pain Neuro: No headaches, weakness, paresthesias. +lightheadedness Skin: No rashes or lesions [facility] Medical History Hyperlipidemia Descending aortic aneurysm Diabetes Family History Brother Substance use disorder Social History Housing: House Patient Tobacco Use Status: Former Tobacco user e-Cigarette/Vaping Use: Never Used Advance Directives: No Advance Directives Information Provided: No Do you have a plan to hurt others: No Plan service: Yes Current occupational status: retired Cognitive needs: No Hearing needs: No Vision needs: Yes Meds Allergies Allergy/AdvReac Type Severity Reaction Status Date / Time No Known Allergies Allergy Verified 10/15/23 09:53 Home Medications ?Medication ?Instructions ?Recorded ?Confirmed ?Last Taken ?Type aspirin 81 mg tablet,delayed 81 mg PO DAILY 10/15/23 10/15/23 Unknown History release empagliflozin 10 mg tablet 10 mg PO DAILY 10/15/23 10/15/23 Unknown History (Jardiance) lisinopril 2.5 mg tablet 2.5 mg PO DAILY 10/15/23 10/15/23 Unknown History metformin 850 mg tablet 850 mg PO BID 10/15/23 10/15/23 Unknown History Physical Exam 2 Vital Signs and Narrative: Vital Signs: Last Vital Signs Temp 97.5 F 10/15/23 15:39 Pulse 115 H 10/15/23 16:38 Resp 16 10/15/23 15:39 BP 112/89 10/15/23 16:38 Pulse Ox 99 10/15/23 15:39 O2 Del Method Room Air 10/15/23 15:39 BMI result Body Mass Index 22.8 Constitutional - Awake and Alert, No apparent distress Eyes - PERRLA, EOMI Cardiovascular - S1S2, RRR, No edema Respiratory - Normal lung expansion, Normal respiratory effort, No respiratory distress, CTA bilaterally Gastrointestinal - NT / ND; +BS; No rebound or guarding Extremities - no calf tenderness bilaterally, no swelling Skin - Warm/Dry Neurological - Alert & oriented x3, CN II-XII in tact, 5/5 strength BUE and BLE Psychological - Appropriate affect Results Labs 10/15/23 10:07 10/15/23 10:07 Labs: Laboratory Results - last 24 hr 10/15/23 10/15/23 10:07 13:05 MCV 81.4 MCH 29.4 MCHC 36.1 H RDW 12.7 Plt Count 177 MPV 8.6 L Immature Gran % (Auto) 0.2 Neut % (Auto) 55.3 Lymph % (Auto) 33.2 [place] % (Auto) 8.5 Eos % (Auto) 2.0 Baso % (Auto) 0.8 Lymph # (Auto) 2.0 [place] # (Auto) 0.5 Eos # (Auto) 0.1 Baso # (Auto) 0.1 Abs Immat Gran (auto) 0.01 Absolute Neuts (auto) 3.3 Absolute Nucleated RBC 0.000 Nucleated RBC % (auto) 0.0 Anion Gap 17 Estim Creat Clear Calc 49.7 Estimated GFR 59 Random Glucose 191 H Calcium 9.6 Total Bilirubin 0.7 AST 15 ALT 16 Alkaline Phosphatase 50 Troponin I High Sens 4.0 Total Protein 6.6 Albumin 3.8 Urine Color Yellow Urine Appearance Clear Urine pH 7.0 Ur Specific [place] 1.015 Urine Protein Negative Urine Glucose (UA) 500 H Urine Ketones Negative Urine Blood Negative Urine Nitrite Negative Ur Leukocyte Esterase Negative Influenza Type A (PCR) NEGATIVE Influenza Type B (PCR) NEGATIVE RSV RNA Qual (PCR) NEGATIVE SARS-CoV-2 RNA (RT-PCR) NEGATIVE Imaging Radiologist's Impressions: Impressions Chest X-Ray 10/15/23 10:05 IMPRESSION: No active disease. Chest CTA 10/15/23 15:09 IMPRESSION: 1. No evidence of acute pulmonary embolus. 2. Stable eccentric saccular aneurysm of the mid to descending thoracic aorta with a maximum diameter of 6.0 cm. There is suggestion of a large amount of mural thrombus within the aneurysm. No evidence of leak or rupture. Evaluation of the aorta is suboptimal due to timing of the contrast bolus since this was performed as a CTA of the pulmonary arteries 3. Severe emphysema. VTE: negative. Assessment and Plan (1) Descending thoracic aortic aneurysm: Status: Acute (2) Orthostatic dizziness: Status: Acute (3) SOB (shortness of breath): Status: Acute Plan 73-year-old male with history of anc-wquhljv-azayyuova type 2 diabetes, hypertension, peripheral artery disease on dual antiplatelet therapy, descending thoracic aortic aneurysm, hyperlipidemia to be observed for orthostatic hypotension #Orthostatic hypotension -likely r/t thoracic aortic aneurysm. Per vascular surgery, outpt followup -Continue IVF -repeat orthostatic vs am -montior on tele -pt eval #Positional dyspnea -likely r/t thoracic aortic aneurysm -outpt follow up #6.0 mid to descending thoracic aneurysm -outpt follow up with vascular surgery #PAD -continue dapt #HTN -blood pressures soft/well controlled -dc lisinopril 2.5mg #HLD -statin #CKD stage 3 -baseline #Acute normocytic anemia -likely r/t ckd, mild, above trasnfusion threshold dvt prophylaxis-lovenox full code Quality Stroke Does the patient have a stroke diagnosis?: No VTE Prior VTE?: No VTE Risk Level:: Medical - moderate - high VTE Device Contraindication: Treatment Not Indicated VTE Drug Contraindication: N/A - Med Ordered
[2023-10-15] MEDS: Enoxaparin Sodium 40 MG/0.4 ML SYRINGE SUBCUT (18:24)
[2023-10-15] MEDS: 0.9 % Sodium Chloride 1,000 ML 100 ML IVCONT (18:24)
--- NOTE | 2023-10-15 19:27 | MHC.EDTECH ---
Patient given dinner tray
--- NOTE | 2023-10-15 20:24 | MHC.EDTECH ---
Patient inc therefore pat changed and repositioned
--- NOTE | 2023-10-15 20:48 | PC.NURSE ---
Assumed care of pt, pt lying on stretcehr, no acute distress.
[2023-10-16] VITALS (11 sets, daily range): BP systolic 103–146; BP diastolic 54–75; PULSE 57–104; RESP 15–20; TEMP 36.1–37.1; O2SAT 93–98; BMI 21.9
--- NOTE | 2023-10-16 05:43 | PC.NURSE ---
Delayed completion of IVF due to pt arm positioning
[2023-10-16 05:47] LABS: MANUAL DIFF FLAG NO
[2023-10-16 05:51] LABS: Basophils Absolute Auto 0.1 X10*3/uL (0.0-0.2); Basophils Percent Auto 1.2 % (0-2); Eosinophils Absolute Auto 0.2 X10*3/uL (0.0-0.4); Eosinophils Percent Auto 3.2 % (0-4); Hematocrit 38.7 % (42.0-52.0); Hemoglobin 13.6 g/dl (14.0-18.0); Imm Gran Abs Auto 0.01 X10*3/uL (0.00-0.03); Imm Gran Pct Auto 0.2 % (0.0-0.4); Lymphocytes Absolute Auto 2.5 X10*3/uL (1.2-4.9); Lymphocytes Percent Auto 37.9 % (20-40); Mean Corpuscular HGB Conc 35.1 g/dl (31.0-36.0); Mean Corpuscular Hemoglobin 29.3 pg (27.0-33.0); Mean Corpuscular Volume 83.4 fL (80.0-98.0); Mean Platelet Volume 8.6 fL (9.4-12.4); Monocytes Absolute Auto 0.7 X10*3/uL (0.1-1.2); Monocytes Percent Auto 10.1 % (2-11); Neutrophils Absolute Auto 3.1 x10*3/uL (2.0-8.3); Neutrophils Percent Auto 47.4 % (45-73); Platelet Count 169 X10*3/uL (160-400); Red Blood Count 4.64 X10*6/uL (4.60-5.80); Red Cell Distribution Width 12.6 % (11.0-16.0); White Blood Count 6.6 X10*3/uL (4.8-10.8)
[2023-10-16 06:07] LABS: Anion Gap 14 (12-20); Blood Urea Nitrogen 22 mg/dL (9-16); Calcium 8.9 mg/dL (8.4-10.2); Carbon Dioxide 20 mmol/L (22-29); Chloride 113 mmol/L (96-108); Creatinine Clr Calc Pharmacy 60.2; Estimated Glomerular Filt Rate > 60; Glucose Random 148 mg/dL (60-115); Potassium 3.7 mmol/L (3.3-5.1); Sodium 143 mmol/L (135-145)
--- NOTE | 2023-10-16 07:28 | PM.DS ---
DS: Providers Provider Date of admission: 10/15/23 18:45 Primary care physician: Unknown Physician DS: Diagnosis Discharge Diagnosis (1) Descending thoracic aortic aneurysm: Status: Acute (2) Orthostatic dizziness: Status: Acute (3) SOB (shortness of breath): Status: Acute Physical Exam Vital Signs: Vital Signs: Last Vital Signs Temp 97.5 F 10/16/23 05:45 Pulse 67 10/16/23 05:45 Resp 17 10/16/23 05:45 BP 118/68 10/16/23 05:45 Pulse Ox 97 10/16/23 05:45 O2 Del Method Room Air 10/16/23 05:45 BMI result Body Mass Index 22.8 DS: Data Data Completed and Pending Labs on day of discharge: Laboratory Results - last 24 hr 10/15/23 10/15/23 10/16/23 10:07 13:05 04:57 WBC 5.9 6.6 RBC 4.69 4.64 Hgb 13.8 L 13.6 L Hct 38.2 L 38.7 L MCV 81.4 83.4 MCH 29.4 29.3 MCHC 36.1 H 35.1 RDW 12.7 12.6 Plt Count 177 169 MPV 8.6 L 8.6 L Immature Gran % (Auto) 0.2 0.2 Neut % (Auto) 55.3 47.4 Lymph % (Auto) 33.2 37.9 [place] % (Auto) 8.5 10.1 Eos % (Auto) 2.0 3.2 Baso % (Auto) 0.8 1.2 Lymph # (Auto) 2.0 2.5 [place] # (Auto) 0.5 0.7 Eos # (Auto) 0.1 0.2 Baso # (Auto) 0.1 0.1 Abs Immat Gran (auto) 0.01 0.01 Absolute Neuts (auto) 3.3 3.1 Absolute Nucleated RBC 0.000 0.000 Nucleated RBC % (auto) 0.0 0.0 Sodium 143 143 Potassium 4.0 3.7 Chloride 110 H 113 H Carbon Dioxide 20 L 20 L Anion Gap 17 14 BUN 28 H 22 H Creatinine 1.20 0.99 Estim Creat Clear Calc 49.7 60.2 Estimated GFR 59 > 60 Random Glucose 191 H 148 H Calcium 9.6 8.9 D Total Bilirubin 0.7 AST 15 ALT 16 Alkaline Phosphatase 50 Troponin I High Sens 4.0 Total Protein 6.6 Albumin 3.8 Urine Color Yellow Urine Appearance Clear Urine pH 7.0 Ur Specific [place] 1.015 Urine Protein Negative Urine Glucose (UA) 500 H Urine Ketones Negative Urine Blood Negative Urine Nitrite Negative Ur Leukocyte Esterase Negative Influenza Type A (PCR) NEGATIVE Influenza Type B (PCR) NEGATIVE RSV RNA Qual (PCR) NEGATIVE SARS-CoV-2 RNA (RT-PCR) NEGATIVE Discharge Plan Discharge Referrals: Physician,Unknown J [Primary Care Provider] - 1 Week Discharge Medications: No Action (DME) lancets [Easy Touch Safety Lancets] 30 gauge misc See Rx Instructions .Route Qty: 200 1RF Rx Instructions: Test blood sugar 3 times per day clopidogrel [Plavix] 75 mg tablet 75 mg PO DAILY Qty: 30 0RF aspirin 81 mg tablet,delayed release (DR/EC) 81 mg PO DAILY Jardiance 10 mg tablet 10 mg PO DAILY lisinopril 2.5 mg Tablet 2.5 mg PO DAILY metformin 850 mg Tablet 850 mg PO BID atorvastatin 20 mg tablet 20 mg PO DAILY Qty: 90 0RF (DME) blood-glucose meter [OneTouch Ultra2 Meter] Misc See Rx Instructions .Route Qty: 1 0RF Rx Instructions: As directed (DME) OneTouch Ultra Test Strip See Rx Instructions .Route Qty: 100 5RF Rx Instructions: Test blood sugar 3 times per day (DME) lancets [OneTouch Delica Plus Lancet] 30 gauge misc See Rx Instructions .Route Qty: 100 5RF Rx Instructions: Test blood sugar 3 times per day Print Language: Greenlandic
[2023-10-16] MEDS: Aspirin Enteric Coated 81 MG TABLET.DR PO (09:29)
[2023-10-16] MEDS: Atorvastatin Calcium 20 MG TABLET PO (09:29)
[2023-10-16] MEDS: Clopidogrel Bisulfate 75 MG TABLET PO (09:29)
--- NOTE | 2023-10-16 10:25 | HO.PM.IMPN ---
Subjective Subjective Date of Service: 10/16/23 Interval History: Seen in follow up for orthostatic hypotension Interval history: Pt denies complaints, however noted to be unsteady on feet when standing. orthostatic VS remain positive Review of Systems Review of Systems: Yes all other systems are reviewed and are negative Physical Exam Vital Signs: Vital Signs: Last Vital Signs Temp 97.2 F 10/16/23 08:56 Pulse 104 H 10/16/23 09:54 Resp 20 10/16/23 08:56 BP 104/70 10/16/23 09:54 Pulse Ox 98 10/16/23 08:56 O2 Del Method Room Air 10/16/23 08:56 BMI result Body Mass Index 21.9 Constitutional - Awake and Alert, No apparent distress Eyes - PERRLA, EOMI Cardiovascular - S1S2, RRR, No edema Respiratory - Normal lung expansion, Normal respiratory effort, No respiratory distress, CTA bilaterally Gastrointestinal - NT / ND; +BS; No rebound or guarding Extremities - no calf tenderness bilaterally, no swelling Skin - Warm/Dry Neurological - Alert & oriented x3 Psychological - Appropriate affect Selected Entries 10/16/23 08:56 10/16/23 09:53 10/16/23 09:53 Pulse Rate 57 86 Blood Pressure 146/71 H 129/75 10/16/23 09:54 Pulse Rate 104 H Blood Pressure 104/70 Objective Data Active Medications Acetaminophen (Acetaminophen 325 Mg Tablet) 650 mg PO Q6H PRN PRN Reason: Pain, Mild (Pain Scale 1-3) Artificial Tears (Artificial Tears 15 Ml Drops) 2 drop EYE-BOTH Q4H PRN PRN Reason: Dry Eyes Aspirin (Aspirin Enteric Coated 81 Mg Tablet.) 81 mg PO DAILY [facility] Last Admin: 10/16/23 09:29 Dose: 81 mg Documented By: FLOR Atorvastatin Calcium (Atorvastatin Calcium 20 Mg Tablet) 20 mg PO DAILY [facility] Last Admin: 10/16/23 09:29 Dose: 20 mg Documented By: FLOR Clopidogrel Bisulfate (Clopidogrel Bisulfate 75 Mg Tablet) 75 mg PO DAILY [facility] Last Admin: 10/16/23 09:29 Dose: 75 mg Documented By: FLOR Enoxaparin Sodium (Enoxaparin Sodium 40 Mg/0.4 Ml Syringe) 40 mg SUBCUT Q24H [facility] Last Admin: 10/15/23 18:24 Dose: 40 mg Documented By: BRAD Sodium Chloride (Ns) 1,000 mls @ 100 mls/hr IVCONT .Q10H [facility] Last Admin: 10/15/23 18:24 Dose: 100 mls/hr Documented By: BRAD Midodrine (Midodrine Hcl 5 Mg Tablet) 5 mg PO TID [facility] Ondansetron HCl (Ondansetron Hcl 4 Mg/2 Ml Vial) 4 mg IVPUSH Q8H PRN PRN Reason: Nausea and Vomiting Senna (Sennosides 8.6 Mg Tablet) 17.2 mg PO BEDTIME PRN PRN Reason: Constipation Labs 10/16/23 04:57 10/16/23 04:57 Labs: Laboratory Results - last 24 hr 10/15/23 10/15/23 10/16/23 10:07 13:05 04:57 MCV 83.4 MCH 29.3 MCHC 35.1 RDW 12.6 Plt Count 169 MPV 8.6 L Immature Gran % (Auto) 0.2 Neut % (Auto) 47.4 Lymph % (Auto) 37.9 [place] % (Auto) 10.1 Eos % (Auto) 3.2 Baso % (Auto) 1.2 Lymph # (Auto) 2.5 [place] # (Auto) 0.7 Eos # (Auto) 0.2 Baso # (Auto) 0.1 Abs Immat Gran (auto) 0.01 Absolute Neuts (auto) 3.1 Absolute Nucleated RBC 0.000 Nucleated RBC % (auto) 0.0 Anion Gap 17 14 Estim Creat Clear Calc 49.7 60.2 Estimated GFR 59 > 60 Random Glucose 191 H 148 H Calcium 9.6 8.9 D Total Bilirubin 0.7 AST 15 ALT 16 Alkaline Phosphatase 50 Troponin I High Sens 4.0 Total Protein 6.6 Albumin 3.8 Urine Color Yellow Urine Appearance Clear Urine pH 7.0 Ur Specific [place] 1.015 Urine Protein Negative Urine Glucose (UA) 500 H Urine Ketones Negative Urine Blood Negative Urine Nitrite Negative Ur Leukocyte Esterase Negative Influenza Type A (PCR) NEGATIVE Influenza Type B (PCR) NEGATIVE RSV RNA Qual (PCR) NEGATIVE SARS-CoV-2 RNA (RT-PCR) NEGATIVE Assessment and Plan (1) Orthostatic dizziness: Status: Acute (2) Descending thoracic aortic aneurysm: Status: Acute Plan 73-year-old male with history of zzb-ptlhbpq-qmiwfifll type 2 diabetes, hypertension, peripheral artery disease on dual antiplatelet therapy, descending thoracic aortic aneurysm, hyperlipidemia to be observed for orthostatic hypotension #Orthostatic hypotension- persistent despite ivf -Discussed with vascular surgery. Given stability of descending thoracic aortic aneurysm, unlikely to be contibutory -Orthostatic VS remain positive, though decrease in BP and increase in HR has improved. Continue IVF -add midodrine 5mg TID for SBP<130 -montior on tele -pt eval #Positional dyspnea -likely r/t thoracic aortic aneurysm -no evidence of volume overload, no murmurs -outpt follow up with vascular surgery, outpt echo #6.0 mid to descending thoracic aneurysm -outpt follow up with vascular surgery #PAD -continue dapt #HTN -blood pressures soft/well controlled -dc lisinopril 2.5mg #HLD -statin #CKD stage 3 -baseline #Acute normocytic anemia -likely r/t ckd, mild, above transfusion threshold dvt prophylaxis-lovenox full code Pt requires inpt stay at least 2 midnights due to persistent significant orthostatic hypotension resulting in gait instability and placing patient at significant risk of falls and will require ongoing IVF and addition of midodrine with close monitoring of vital signs. It would not be safe or reasonable to discharge patient home at this time. Quality Stroke Does the patient have a stroke diagnosis?: No VTE Prior VTE?: No VTE Risk Level:: Medical - moderate - high VTE Device Contraindication: Treatment Not Indicated VTE Drug Contraindication: N/A - Med Ordered
--- NOTE | 2023-10-16 11:06 | MHC.CM.PN ---
CM met with Patient at bedside and addressed VERDIN with him, providing Patient with a copy and the original has been placed on the chart. Patient lives alone, uses no DME and is active with [facility] and some [facility] services. Home/resume said services is the goal and CM has initiated and will follow for dc planning. HCP is Nohemi/Sobeida and PCP is from [facility].
[2023-10-16] MEDS: Midodrine HCl 5 MG TABLET PO (11:36)
[2023-10-16] MEDS: Lactated Ringers 1,000 ML 100 ML IVCONT ×2 (11:36→20:17)
--- NOTE | 2023-10-16 12:30 | MHC.CLN ---
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
--- NOTE | 2023-10-16 14:00 | MHC.CM.PN ---
Patient has been switched from OBSERVATION to INPATIENT; CM met with Patient at bedside and addressed IMM with him (original has been given to Patient and a copy has been placed on the chart).
[2023-10-16] MEDS: Enoxaparin Sodium 40 MG/0.4 ML SYRINGE SUBCUT (17:38)
[2023-10-17 03:13] VITALS: BP 98/57; PULSE 61; RESP 15; TEMP 36.3; O2SAT 97
[2023-10-17] MEDS: Lactated Ringers 1,000 ML 100 ML IVCONT (05:44)
[2023-10-17 07:37] VITALS: BP 103/56; PULSE 58; RESP 20; TEMP 36.3; O2SAT 96
[2023-10-17] MEDS: Midodrine HCl 5 MG TABLET PO (08:29)
[2023-10-17] MEDS: Aspirin Enteric Coated 81 MG TABLET.DR PO (08:29)
[2023-10-17] MEDS: Clopidogrel Bisulfate 75 MG TABLET PO (08:29)
[2023-10-17] MEDS: Atorvastatin Calcium 20 MG TABLET PO (08:29)
--- NOTE | 2023-10-17 09:56 | PM.DS ---
DS: Providers Provider Date of Service: 10/17/23 Date of admission: 10/16/23 10:30 Date of discharge: 10/17/23 Primary care physician: Unknown Physician Admitting clinician: Eugenie Rodriguez Attending physician on admission: Jer Guzman Attending physician on discharge: Arron Morales Discharging clinician: Eugenie Rodriguez DS: Diagnosis Discharge Diagnosis (1) Orthostatic dizziness: Status: Acute (2) Descending thoracic aortic aneurysm: Status: Acute DS: Summary Hospital Course Hospital Course: HPI on admission by this provider 10/14: Chief Complaint: medical management 73-year-old male with history of [id number] type 2 diabetes, hypertension, peripheral artery disease on dual antiplatelet therapy, descending thoracic aortic aneurysm, hyperlipidemia presented to the ED earlier today for evaluation of positional lightheadedness that started this morning. He states he has been experiencing positional weakness and dyspnea for several weeks and has been seen in the ER multiple times for this. However, today, lightheadedness was very concerning so he returned to the ED for evaluation. He denies any fevers, chills, recent illness, urinary symptoms, diarrhea, nausea, vomiting, melena, hematochezia, cough, palpitations, chest pain. On arrival, vital signs stable the was found to be significantly orthostatic with heart rate increasing from 73-147 upon standing and blood pressure dropping 130/61 to 85/65 when going from lying to sitting. Hematology studies shows a mild normocytic anemia with H/H 13.8/38.2 no other significant abnormality. Renal function baseline, consistent with CKD stage 3. Glucose 191, no hypoglycemia. Hepatic function normal. Troponin for. Urinalysis unremarkable. Negative for COVID-19, RSV, influenza. Chest x-ray negative. CTA chest negative for PE but shows stable eccentric saccular aneurysm of mid 2 descending thoracic aorta with a maximum diameter of 6 cm with suggestion of large amount of mural thrombus within the aneurysm but no evidence of rupture or leak. There was also severe emphysema. He bishop be observed overnight for orthostatic hypotension with ivf. Hospital course: Hospital course uneventful. PT admitted for further management of orthostatic hypotension, treated with IVF with gradual improvement in orthostatis. He was tolerating adequate PO and IVF were stopped. Lisinopril was also discontinued due to low normal blood pressures. SBP remained in the low 100s. Pt was started on midodrine 5mg TID maintaining SBP 110-120s. On discharge advised to stop lisinopril and continue midodrine 5mg TID. He was evaluated by PT recommending he continue with home services who will continue monitoring blood pressures and provide physical therapy in the home. Throughout visit, vitals otherwise stable. He has a chronic normocytic anemia with stable h/h. Renal function and electrolytes normal. Glucose levels closely monitored with POC 148 on discharge. Continue metformin and jardiance on discharge. Was continued on atorvastatin for hld and dapt for PAD. He does have known stable, 6cm mid to descending thoracic aortic aneurysm which was reviewed by vascular surgery and not felt to be contributing to patient symptoms and recommending outpt follow up. He also reports ongoing positional dyspnea that has not changed. No evidence of volume overload and patient ambulating without difficulty. Recommend outpt follow up with pcp and consideration of echocardiogram. Status at Discharge Functional status at discharge: independent ambulation Overall status at discharge: patient is progressing back to baseline Time Attestation Discharge Coordination Time (in mins): 42 Quality: Safe Use of Opioids Does Pt have an Active Cancer Diagnosis on the Problem List?: No Quality: Stroke Does the patient have a stroke diagnosis?: No Physical Exam Vital Signs: Vital Signs: Last Vital Signs Temp 97.3 F 10/17/23 07:37 Pulse 58 10/17/23 07:37 Resp 20 10/17/23 07:37 BP 103/56 L 10/17/23 07:37 Pulse Ox 96 10/17/23 07:37 O2 Del Method Room Air 10/17/23 07:37 BMI result Body Mass Index 21.9 Constitutional - Awake and Alert, No apparent distress Eyes - PERRLA, EOMI Cardiovascular - S1S2, RRR, No edema Respiratory - Normal lung expansion, Normal respiratory effort, No respiratory distress, CTA bilaterally Gastrointestinal - NT / ND; +BS; No rebound or guarding Extremities - no calf tenderness bilaterally, no swelling Skin - Warm/Dry Neurological - Alert & oriented x3, steady gait Discharge Plan Discharge Anticipated Discharge Date/Time: 10/17/23 12:35 Patient Disposition: Home Health Service Discharge Diagnosis: orthostatic hypotension Referrals: Mandy GAMEZ [Outside] - 1 Week Ben Hua MD [Physician] - 1 Week Physician,Unknown J [Primary Care Provider] - 1 Week Discharge Medications: New midodrine 5 mg Tablet 5 mg PO TID Qty: 90 0RF Continued (DME) lancets [Easy Touch Safety Lancets] 30 gauge misc See Rx Instructions .Route Qty: 200 1RF Rx Instructions: Test blood sugar 3 times per day clopidogrel [Plavix] 75 mg tablet 75 mg PO DAILY Qty: 30 0RF aspirin 81 mg tablet,delayed release (DR/EC) 81 mg PO DAILY Jardiance 10 mg tablet 10 mg PO DAILY metformin 850 mg Tablet 850 mg PO BID atorvastatin 20 mg tablet 20 mg PO DAILY Qty: 90 0RF (DME) blood-glucose meter [OneTouch Ultra2 Meter] Misc See Rx Instructions .Route Qty: 1 0RF Rx Instructions: As directed (DME) OneTouch Ultra Test Strip See Rx Instructions .Route Qty: 100 5RF Rx Instructions: Test blood sugar 3 times per day (DME) lancets [OneTouch Delica Plus Lancet] 30 gauge misc See Rx Instructions .Route Qty: 100 5RF Rx Instructions: Test blood sugar 3 times per day Discontinued lisinopril 2.5 mg Tablet 2.5 mg PO DAILY Discharge Orders: Discharge Order (Routine); Ordered 10/17/23 Ordered By: Eugenie Rodriguez Diet: Advance to usual diet Activity on Discharge: As tolerated Stand Alone Forms: Patient Portal Discharge page Print Language: [place] Care Plan Goals: Prevent lightheadedness/hear syncope Manage blood pressure Health Concerns: Orthostatic hypotension Plan of Treatment: Orthostatic hypotension -increase water intake at home to prevent drops in blood pressures -take midodrine 5mg at 7, 3pm, and bedtime to help prevent low blood pressures. Have VNA continue monitoring blood pressures -use caution when changing positions Given persistent shortness of breath that has been ongoing for sometime, follow up with pcp for possible echocardiogram Assessment: See above. See discharge summary
[2023-10-17 11:21] VITALS: BP 116/64; PULSE 61; RESP 20; TEMP 35.9; O2SAT 100
--- NOTE | 2023-10-17 12:48 | MHC.CM.PN ---
Patient has been medically cleared for dc to home today, with services. Patient is active with [facility], who has been notified of today's dc. Patient will dc via [facility] at 2 PM. Last IMM addressed yesterday.
== END 2023-10-17 14:11 | disposition home health service (06) | DRG 312 ==
LOC: HO.ED 13:05 → HO.EDOVER 18:47 → HO.IMC 10-16 07:29
PROVIDERS: Physician Assistant; Admitting Provider Physician Assistant; Emergency Provider Emergency Medicine; Visit Provider Physician Assistant
DX: I95.1 Orthostatic hypotension (principal); I12.9 Hypertensive chronic kidney disease with stage 1 through stage 4 chronic kidney disease, or unspecified chronic kidney disease; N18.30 Chronic kidney disease, stage 3 unspecified; D63.1 Anemia in chronic kidney disease; E78.5 Hyperlipidemia, unspecified; E11.51 Type 2 diabetes mellitus with diabetic peripheral angiopathy without gangrene; I71.23 Aneurysm of the descending thoracic aorta, without rupture; E11.22 Type 2 diabetes mellitus with diabetic chronic kidney disease; Z20.822 Contact with and (suspected) exposure to COVID-19; Z79.02 Long term (current) use of antithrombotics/antiplatelets; Z79.82 Long term (current) use of aspirin; Z79.84 Long term (current) use of oral hypoglycemic drugs; Z79.899 Other long term (current) drug therapy
CPT/HCPCS: 0241U; 36415; 71045; 71275; 80048; 80053; 81003; 84484; 85025; 93005; 97161; 99285; J1650; J7120; Q9967

== ENCOUNTER → 2023-10-15 09:46 | Outpatient (BNV) | payer OTHER, SELFPAY | PROVIDERS: Emergency Provider Emergency Medicine; Visit Provider Internal Medicine Cardiovascular Disease | DX: R53.1 Weakness (principal) | CPT/HCPCS: 93010 ==

== ENCOUNTER → 2023-10-15 18:45 | Outpatient (BNV) | payer OTHER, SELFPAY | PROVIDERS: Admitting Provider Physician Assistant; Emergency Provider Emergency Medicine; Visit Provider Physician Assistant | DX: I71.23 Aneurysm of the descending thoracic aorta, without rupture (principal); R42 Dizziness and giddiness; R06.02 Shortness of breath | CPT/HCPCS: 99223; 99232; 99239 ==

== ENCOUNTER 2023-10-22 09:34 | Outpatient (AMB) | payer OTHER, SELFPAY ==
--- NOTE | 2023-10-22 09:41 | MHC.OFFVIS ---
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
--- NOTE | 2023-10-22 09:54 | MHC.OFFVIS ---
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 Incidental finding . Patient has had about 3-4 emergency room visits due to SOB , after having a CT scan done an aneurysm was found. Patient does not have any symptoms. Accompanied by: Other Relationship Allergies No Known Allergies Allergy (Verified 10/22/23 09:57) [facility] [place] Medical History SOB (shortness of breath) Hyperlipidemia Descending aortic aneurysm Diabetes Family History Brother Substance use disorder Social History Household Members: None Housing: House Do you presently have visiting nurse or other home services: Yes Patient Tobacco Use Status: Former Tobacco user e-Cigarette/Vaping Use: Never Used service: Yes Current occupational status: retired Cognitive needs: No Hearing needs: No Vision needs: Yes Coding
--- NOTE | 2023-10-22 15:04 | A.OFFVIS_ITS ---
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 He has a prior history of diabetes hypertension hyperlipidemia and presented to the emergency room on 10/17/2023 with positional weakness and dyspnea that had been present for several weeks. Upon workup and CT scan he was found to have a descending thoracic aortic aneurysm. He was subsequently discharged. He presents for evaluation regarding the thoracic aneurysm. He quit smoking back in 1990. He presents with a nurse navigator in a wheelchair. [facility] Medical History (Updated 10/24/23 @ 09:19 by Ben Hua MD) SOB (shortness of breath) Hyperlipidemia Descending aortic aneurysm Diabetes Family History Brother Substance use disorder Social History Household Members: None Housing: House Do you presently have visiting nurse or other home services: Yes Patient Tobacco Use Status: Former Tobacco user e-Cigarette/Vaping Use: Never Used service: Yes Current occupational status: retired Cognitive needs: No Hearing needs: No Vision needs: Yes Review of Systems Const All systems reviewed & are unremarkable except as noted in HPI and below Reports no additional complaints ENT Reports Normal hearing present Card Denies chest pain, Denies chest pain at rest, Denies chest pain with activity and Denies pedal edema Resp Denies cough GI Denies abdominal pain Musc Denies abnormal gait, Denies muscle cramps and Denies radiating pain into limb Skin/Breast Denies skin ulcer and Denies wounds Neuro Reports Normal hearing present and Denies abnormal gait Psych Reports no additional complaints Physical Exam Const General: cooperative, healthy appearing and comfortable Orientation/consciousness: oriented to person, oriented to place and oriented to time HEENT Head: Yes normal to inspection Neck Neck: Yes normal visual inspection Carotids: no bruits Chest Chest palpation & inspection: normal inspection of the chest Resp Effort & Inspection: normal respiratory effort and able to speak in complete sen tences Auscultation: clear to auscultation bilaterally, no crackles, no rales, no rhonchi and no wheezes Cardio Rate: regular rate Rhythm: regular rhythm Heart sounds: S1 normal heart sound present and S2 normal heart sound present Bruits: no carotid bruits Peripheral pulses: Peripheral pulses 2+ throughout GI Inspection: Yes normal to inspection Skin Wounds: no wounds Hair: normal Neuro General: oriented to person, oriented to place and oriented to time Cranial nerves: Yes CN's II-XII intact bilaterally and Yes Normal hearing present Cognition (Neuro): normal cognition Motor exam (neuro): 5/5 motor strength present throughout Extrem Other: venous exam: No significant superficial varicosities or spider telangiectasia s, minimal edema General: No clubbing, No cyanosis and No edema Psych Appearance: grossly normal Mental Status: mental status grossly normal Speech and movement: Normal speech and movement present Results Reviewed Results Reviewed: CT angiogram dated 10/15/2023 demonstrates a 6 cm saccular aneurysm in the mid descending thoracic aorta. Written report and images were reviewed. Assessment & Plan Assessment & Plan (1) Descending thoracic aortic aneurysm: Code(s): I71.23 - Aneurysm of the descending thoracic aorta, without rupture Category: Medical Qualifiers: Presence of rupture: without rupture Qualified Code(s): I71.23 - Aneurysm of the descending thoracic aorta, without rupture Plan: In short patient has a stable descending thoracic aortic aneurysm. It does seem amenable to endovascular repair. I do think that he should be referred to a tertiary care center to be better served for this as we are not equipped and do not have appropriate CT surgery backup. We have reached out to several institutions in [place] and unfortunately due to his insurance the only hospital that will accept this is [facility]. We will try to expedite getting him into a vascular surgeon there. Thank you for allowing us to assist in his care. Coding Level of Care Code New Pt Level 4 (81629) Diagnoses Aneurysm of descending thoracic aorta without rupture I71.23 Presence of rupture: without rupture
== END 2023-10-22 10:42 | disposition home or self-care (01) ==
PROVIDERS: PCP Nurse Practitioner Family; Visit Provider Surgery Vascular Surgery
DX: I71.23 Aneurysm of the descending thoracic aorta, without rupture (principal)
CPT/HCPCS: 99204

== ENCOUNTER → 2023-10-22 09:34 | Outpatient (BNVA) | payer OTHER, SELFPAY | PROVIDERS: PCP Nurse Practitioner Family; Visit Provider Surgery Vascular Surgery | DX: I71.23 Aneurysm of the descending thoracic aorta, without rupture (principal) | CPT/HCPCS: 99202 ==

== ENCOUNTER 2023-10-25 09:58 | Outpatient (AMB) | payer OTHER, SELFPAY ==
[2023-10-25 09:59] VITALS: BP 70/56; PULSE 111; O2SAT 99
--- NOTE | 2023-10-25 09:59 | MHC.PC.OV ---
Vital Signs 10/25/23 09:59 Height 5 ft 7 in BMI Reason not done Patient refused/unable BP 70/56 L Blood Pressure Location Rt brachial Position Sitting Pulse 111 H Pulse Source Pulse Oximeter Pulse Oximetry (%) 99 Oxygen Delivery Method Room Air Intake Visit Reasons: Followup, needs refills Intake Note: pt is here for follow up, requesting refills Allergies No Known Allergies Allergy (Verified 10/25/23 10:35) Medication List - Last Reconciled 10/25/23 by XIOMARA Simpson aspirin 81 mg PO DAILY atorvastatin 20 mg PO DAILY blood sugar diagnostic (RaveMobileSafety.comTouch Ultra Test strips) Test blood sugar 3 times per day blood-glucose meter (Tracks.byuch Ultra2 Meter) As directed clopidogrel (Plavix) 75 mg PO DAILY lancets (Tracks.byuch Delica Plus Lancet) Test blood sugar 3 times per day lancets (Easy Touch Safety Lancets) Test blood sugar 3 times per day metformin 1,000 mg PO BIDWMEAL midodrine 5 mg PO TID sitagliptin phosphate (Januvia) 25 mg PO DAILY Tobacco use date assessed: 07/15/23 Fall risk assessment: No Falls in past year Last assessed Fall Risk: 10/25/23 Dental Screening Dental Screen Date: 07/15/23 HPI HPI Comments History of Present Illness Details Patient is a 73-year-old male in today following a hospital discharge. He was originally admitted to the hospital 1 week prior with a near syncopal event, shortness of breath and generalized weakness. He was sent in by his visiting nurse. Patient was found to be orthostatic hypotensive. He was discharged with 5 midodrine p.o. t.i.d. Patient has had several emergency room visits over the past 2 months for similar symptoms. He has had CT scan which had finding of aortic aneurysm. He is under the care of vascular surgery at this time. Previous CT scan also demonstrated emphysema, patient will get referral for Pulmonary. In addition patient also needs cardiology evaluation due to increased dyspnea on exertion. Will order echocardiogram and give cardiology referral. Patient has difficulty with instructions on how to take medications. He is diabetic, is unable to successfully learn how to take blood sugar measurements at home as well as administer the correct amount of insulin, even after several education attempts in office. For this reason patient is not currently on injectable medicine for his diabetes. He is currently being managed with metformin and Januvia. Patient did have previous ER visit due to metabolic acidosis that was secondary to Jardiance which has since been discontinued. Patient currently has visiting nurse and [facility]. On physical exam he has visibly labored breathing sitting down in his wheel chair, even after 30 mins. He is found to be hypotensive with blood pressure measurements of 70/52 and 68/50. Patient reports he took his midodrine this am. Reports he ate breakfast this morning. [facility] Medical History (Updated 10/25/23 @ 10:08 by XIOMARA Simpson) SOB (shortness of breath) Hyperlipidemia Descending aortic aneurysm Diabetes Surgical History (Updated 10/25/23 @ 10:00 by Ant Chaudhry CMA) No pertinent past surgical history Family History Brother Substance use disorder Social History Household Members: None Housing: House Do you presently have visiting nurse or other home services: Yes Patient Tobacco Use Status: Former Tobacco user e-Cigarette/Vaping Use: Never Used service: Yes Current occupational status: retired Cognitive needs: No Hearing needs: No Vision needs: Yes Questionnaire Thrive Questionnaire Date Thrive assessed: 10/16/23 JUDY-7 AMB Questionnaire JUDY-7 Date JUDY - 7 assessed: 06/13/23 Source: Developed by Drs. Cole Still, Jovanna Gabriel, Hugo Silva and colleagues, with an educational arturo from [employer]. Review of Systems Const Denies chills, Denies fever(s), Denies headache(s) and Reports weakness Eyes Denies blurry vision ENT Reports dizziness (when standing. ) and Denies headache(s) Card Denies chest pain, Reports dyspnea, Reports dyspnea on exertion and Reports orthopnea Resp Reports dyspnea and Reports dyspnea on exertion GI Denies diarrhea, Denies nausea and Denies vomiting Neuro Reports dizziness (when standing. ), Denies headache(s) and Reports weakness Physical exam (Primary Care) Care Plan Goal for BP management: BP is hypotensive after several measurements. Next steps: Patient will be sent to the ED. Tobacco/Smoking Status: Tobacco use Status Tobacco use date assessed 07/15/23 10/25/23 10:00 Patient Tobacco Use Status Former Tobacco user 10/25/23 10:00 e-Cigarette/Vaping Use Never Used 10/25/23 10:00 Thrive Assessment: Date of Thrive Assessment Date Thrive assessed 10/16/23 10/25/23 10:00 Const General: cooperative, alert, awake, lethargic and tired appearing Orientation/consciousness: patient oriented x3 and lethargic Limitations: wheelchair HENMT Head: Yes normal to inspection and Yes normocephalic Eyes Sclerae: sclerae normal Pupils: Equal, round and reactive pupils present EOM: EOMs intact bilaterally Resp Effort & Inspection: labored and tachypneic Auscultation: diminished lung sounds Cardio Rate: tachycardic Neuro General: patient oriented x3 Cranial nerves: Yes Equal, round and reactive pupils present Psych Insight: Fair insight present (Psych) Judgement: Fair judgement present (Psych) Assessment and Plan Assessment & Plan (1) SOB (shortness of breath): Comment: Patient has been sent to the ER via ambulance. Expect was called Code(s): R06.02 - Shortness of breath Orders: Referrals Pulmonary Medicine Referral J43.9 - Emphysema, unspecified Cardiology Referral R06.09 - Other forms of dyspnea Medications: New sitagliptin phosphate (Januvia) 25 mg PO DAILY 30 tabs 0RF metformin 1,000 mg PO BIDWMEAL 180 tabs 0RF Coding Level of Care Code Est Pt Level 3 (28564) Diagnoses SOB (shortness of breath) R06.02 Time Spent (min) 45
== END 2023-10-25 13:07 | disposition home or self-care (01) ==
PROVIDERS: PCP Nurse Practitioner Family; Visit Provider Nurse Practitioner Primary Care
DX: R06.02 Shortness of breath (principal)
CPT/HCPCS: 99213

== ENCOUNTER 2023-10-25 11:26 | Emergency (ER) | payer OTHER, SELFPAY ==
--- NOTE | ~2023-10-25 | XR_ITS ---
EXAMINATION: XR CHEST CLINICAL INFORMATION: Shortness of breath COMPARISON: 10/15/2023 TECHNIQUE: Frontal view of the chest was obtained. FINDINGS: Lungs are well expanded in this patient with underlying emphysematous disease. No acute abnormality. No interstitial infiltrate, consolidation or pleural effusion. Cardiac silhouette is normal in size. The hilar contours are normal. The pulmonary vascular pattern is normal. No acute osseous abnormalities. XR/XR chest 1V IMPRESSION: No acute pulmonary disease.
[2023-10-25 11:33] VITALS: BP 97/63; PULSE 88; O2SAT 100
[2023-10-25 11:43] VITALS: BP 96/58; PULSE 91; RESP 16; TEMP 36.1; O2SAT 99; BMI 22.9
--- NOTE | 2023-10-25 11:57 | ECG_ITS ---
Test Reason : SOB Blood Pressure : / mmHG Vent. Rate : 076 BPM Atrial Rate : 076 BPM P-R Int : 164 ms QRS Dur : 080 ms QT Int : 400 ms P-R-T Axes : 025 091 054 degrees QTc Int : 450 ms Normal sinus rhythm Rightward axis Borderline ECG When compared with ECG of 15-OCT-2023 09:46, No significant change was found Referred By: Generic ED Physician Electronically Signed By:OUSMANE HAN MD
--- NOTE | 2023-10-25 12:02 | ED.GENADULT ---
HPI - General Adult General Chief complaint: Dyspnea Stated complaint: SOB FROM PCP OFFICE Time Seen by Provider: 10/25/23 12:01 History of Present Illness HPI narrative: 73 y/o M patient; PMH T2DM, HTN, HLD, PAD, descending aortic aneurysm 6cm pending out-patient follow up with Dr. Hua, recent ED visits (09/04/23, 09/19/23, 09/24/23, 10/15/23) for near syncopal episodes with generalized weakness in the setting of orthostatic dizziness; presents from PCP office with concern for shortness of breath. The patient states he went to his PCP today for routine appointment regarding his chronic shortness of breath. In the PCP office he was noticed to be hypotensive, although of note the patient does take Midodrine 5mg TID at baseline. The patient states he had one hypotensive blood pressure with the PCP which was repeated in the office by nursing staff and then repeated by EMS and hypotension had resolved. He otherwise denies complaints including: chest pain, nausea/vomiting, abdominal pain, fever or chills, hematochezia/melena, syncope. Related Data Home Medications ?Medication ?Instructions ?Recorded ?Confirmed aspirin 81 mg tablet,delayed 81 mg PO DAILY 10/15/23 10/25/23 release Previous Rx's ?Medication ?Instructions ?Recorded blood sugar diagnostic (RazmirTouch #100 ea 05/30/23 Ultra Test strips) blood-glucose meter (RazmirTouch #1 ea 05/30/23 Ultra2 Meter) lancets 30 gauge (OneTouch Delica #100 ea 05/30/23 Plus Lancet) lancets 30 gauge (Easy Touch #200 ea 06/13/23 Safety Lancets) atorvastatin 20 mg tablet 20 mg PO DAILY #90 tabs 07/15/23 clopidogrel 75 mg tablet (Plavix) 75 mg PO DAILY #30 tabs 09/19/23 midodrine 5 mg tablet 5 mg PO TID #90 tabs 10/17/23 metformin 1,000 mg tablet 1,000 mg PO BIDWMEAL #180 tabs 10/25/23 sitagliptin phosphate 25 mg tablet 25 mg PO DAILY #30 tabs 10/25/23 (Januvia) Allergies Allergy/AdvReac Type Severity Reaction Status Date / Time No Known Allergies Allergy Verified 10/25/23 11:44 Review of Systems Review of Systems: Yes all other systems are reviewed and are negative Neurologic: Denies Sensory deficit (Neuro) REPLACED BY [facility] Past Medical History Attestation statement: The following information was validated with the patient. Source: old records reviewed Medical History SOB (shortness of breath) Hyperlipidemia Descending aortic aneurysm Diabetes Surgical History No pertinent past surgical history Family History Family History Brother Substance use disorder Social History Social History Household Members: None Housing: House Do you presently have visiting nurse or other home services: Yes Patient Tobacco Use Status: Former Tobacco user e-Cigarette/Vaping Use: Never Used Advance Directives: No Advance Directives Information Provided: No service: Yes Current occupational status: retired Cognitive needs: No Hearing needs: No Vision needs: Yes Physical Exam ED Vital Signs: Vital Signs - 24 hr 10/25/23 11:43 10/25/23 12:34 10/25/23 12:37 Temperature 97 F 97.7 F Pulse Rate 91 76 74 Respiratory Rate 16 16 Blood Pressure 96/58 L 91/58 L 106/59 L Pulse Oximetry 99 99 Oxygen Delivery Method Room Air Room Air 10/25/23 12:39 10/25/23 12:39 Temperature Pulse Rate 78 113 H Respiratory Rate Blood Pressure 87/59 L 106/85 Pulse Oximetry Oxygen Delivery Method BMI result Body Mass Index 22.9 Patient is afebrile, mildly soft blood pressures. Const General: cooperative and healthy appearing Orientation/consciousness: patient oriented x3 HENMT Head: Yes normal to inspection and Yes atraumatic Eyes General: appearance normal, both eyes and all related structures Pupils: Equal, round and reactive pupils present EOM: EOMs intact bilaterally Neck Neck: Yes normal visual inspection, Yes full ROM, Yes supple and No tender Chest Chest palpation & inspection: normal inspection of the chest and normal palpation of entire chest wall Resp Effort & Inspection: normal respiratory effort, able to speak in complete sentences, no cough and no respiratory distress Auscultation: clear to auscultation bilaterally Cardio Rate: regular rate Rhythm: regular rhythm Peripheral pulses: Peripheral pulses 2+ throughout GI Inspection: Yes normal to inspection Palpation (GI): Soft to palpation, not firm, nontender, no guarding and not rigid Auscultation: normal bowel sounds Neuro General: patient oriented x3 Cranial nerves: Yes CN's II-XII intact bilaterally and Yes Equal, round and reactive pupils present Gait exam (Neuro): Normal gait present Motor exam (neuro): 5/5 motor strength present throughout Sensory Exam: No Sensory deficit (Neuro) Course Course Course Narrative: Patient is afebrile with soft normal blood pressure. Will obtain EKG, CXR, and basic labs. Patient is asymptomatic at this time. He did miss his noon Midodrine which was provided. Will plan to check basic laboratory studies (CBC, CMP, troponin) and if diagnostics unremarkable patient can be discharged to home to continue out-patient follow up. EKG reassuring. Labs reviewed. Troponin appropriately low. Cr 1.57, has been as high as 1.90 in 09/04/2023. Bicarb 19. Borderline orthostatic vital signs. Suspect degree of dehydration - provided 1L IVF. Patient is ambulating without difficulty. Patient is tolerating PO without difficulty. Plan: Discharge to home with PCP follow up in 1 - 2 days Return precautions given Medications Administered Discontinued Medications Generic Name Dose Route Start Last Admin Trade Name Freq PRN Reason Stop Dose Admin Sodium Chloride 1,000 mls @ 999 mls/hr 10/25/23 13:00 10/25/23 13:31 Ns IV 10/25/23 14:00 999 mls/hr .Q1H1M BETHANIE Administration Medical Decision Making Lab Data [facility] Lab Attestation statement: I reviewed the patient's lab results. 10/25/23 12:33 10/25/23 12:33 Labs: Lab Results 10/25/23 Range/Units 12:33 WBC 7.2 (4.8-10.8) X10*3/uL RBC 4.63 (4.60-5.80) X10*6/uL Hgb 13.8 L (14.0-18.0) g/dl Hct 38.5 L (42.0-52.0) % MCV 83.2 (80.0-98.0) fL MCH 29.8 (27.0-33.0) pg MCHC 35.8 (31.0-36.0) g/dl RDW 13.2 (11.0-16.0) % Plt Count 189 (160-400) X10*3/uL MPV 8.4 L (9.4-12.4) fL Immature Gran % (Auto) 0.1 (0.0-0.4) % Neut % (Auto) 59.0 (45-73) % Lymph % (Auto) 29.8 (20-40) % [place] % (Auto) 8.6 (2-11) % Eos % (Auto) 1.5 (0-4) % Baso % (Auto) 1.0 (0-2) % Lymph # (Auto) 2.2 (1.2-4.9) X10*3/uL [place] # (Auto) 0.6 (0.1-1.2) X10*3/uL Eos # (Auto) 0.1 (0.0-0.4) X10*3/uL Baso # (Auto) 0.1 (0.0-0.2) X10*3/uL Abs Immat Gran (auto) 0.01 (0.00-0.03) X10*3/uL Absolute Neuts (auto) 4.3 (2.0-8.3) x10*3/uL Absolute Nucleated RBC 0.000 (0.0-0.012) X10*3/uL Nucleated RBC % (auto) 0.0 (0.0-0.2) /100WBC Sodium 142 (135-145) mmol/L Potassium 3.9 (3.3-5.1) mmol/L Chloride 110 H (96-108) mmol/L Carbon Dioxide 19 L (22-29) mmol/L Anion Gap 17 (12-20) BUN 31 H (9-16) mg/dL Creatinine 1.57 H (0.5-1.4) mg/dL Estim Creat Clear Calc 40.4 Estimated GFR 43 Random Glucose 113 (60-115) mg/dL Calcium 9.4 (8.4-10.2) mg/dL Total Bilirubin 0.6 (0.0-1.0) mg/dL AST 16 (5-37) U/L ALT 14 (0-40) U/L Alkaline Phosphatase 48 (39-117) U/L Troponin I High Sens 2.7 (<3.5-35.0) ng/L Total Protein 6.5 (6.5-8.0) g/dL Albumin 3.8 (3.5-5.0) g/dL Influenza Type A (PCR) NEGATIVE (Negative) Influenza Type B (PCR) NEGATIVE (Negative) RSV RNA Qual (PCR) NEGATIVE (Negative) SARS-CoV-2 RNA (RT-PCR) NEGATIVE (Negative) Independent Interpretation I performed an independent interpretation of an: EKG Interpretation: NSR 76BPM without ischemic changes. Unchanged compared to EKG from 10/15/2023. Radiology Impression Discussion of test interpretation with radiology: I have reviewed the radiologist's reading. Radiologist Impression: EXAMINATION: XR CHEST CLINICAL INFORMATION: Shortness of breath COMPARISON: 10/15/2023 TECHNIQUE: Frontal view of the chest was obtained. FINDINGS: Lungs are well expanded in this patient with underlying emphysematous disease. No acute abnormality. No interstitial infiltrate, consolidation or pleural effusion. Cardiac silhouette is normal in size. The hilar contours are normal. The pulmonary vascular pattern is normal. No acute osseous abnormalities. XR/XR chest 1V IMPRESSION: No acute pulmonary disease. Discharge Plan Discharge Clinical Impression: Hypotension Patient Disposition: Home, Self-Care Instructions: Midodrine (By mouth), How to Take a Blood Pressure (ED) Additional Instructions: As we discussed, you were seen today with concern for a low blood pressure. Your blood pressure had increased by your arrival in the emergency department. We did provide your noon dose of Midodrine 5mg. Please take your evening dose as normal. Follow up with your PCP within the next 2 days for a re-evaluation. Return immediately to the emergency department for: Chest pain Passing out Difficulty breathing Prescriptions: No Action (DME) lancets [Easy Touch Safety Lancets] 30 gauge misc See Rx Instructions .Route Qty: 200 1RF Rx Instructions: Test blood sugar 3 times per day clopidogrel [Plavix] 75 mg tablet 75 mg PO DAILY Qty: 30 0RF aspirin 81 mg tablet,delayed release (DR/EC) 81 mg PO DAILY midodrine 5 mg Tablet 5 mg PO TID Qty: 90 0RF atorvastatin 20 mg tablet 20 mg PO DAILY Qty: 90 0RF (DME) blood-glucose meter [OneTouch Ultra2 Meter] Misc See Rx Instructions .Route Qty: 1 0RF Rx Instructions: As directed (DME) OneTouch Ultra Test Strip See Rx Instructions .Route Qty: 100 5RF Rx Instructions: Test blood sugar 3 times per day (DME) lancets [OneTouch Delica Plus Lancet] 30 gauge misc See Rx Instructions .Route Qty: 100 5RF Rx Instructions: Test blood sugar 3 times per day metformin 1,000 mg tablet 1,000 mg PO BIDWMEAL Qty: 180 0RF Januvia 25 mg tablet 25 mg PO DAILY Qty: 30 0RF Print Language: Luxembourgish
[2023-10-25 12:34] VITALS: BP 91/58; PULSE 76; RESP 16; TEMP 36.5; O2SAT 99
[2023-10-25 12:37] VITALS: BP 106/59; PULSE 74
[2023-10-25 12:39] VITALS: BP 106/85; BP 87/59; PULSE 113; PULSE 78
[2023-10-25 12:39] LABS: MANUAL DIFF FLAG NO
[2023-10-25 12:44] LABS: Basophils Absolute Auto 0.1 X10*3/uL (0.0-0.2); Eosinophils Absolute Auto 0.1 X10*3/uL (0.0-0.4); Eosinophils Percent Auto 1.5 % (0-4); Hematocrit 38.5 % (42.0-52.0); Hemoglobin 13.8 g/dl (14.0-18.0); Imm Gran Abs Auto 0.01 X10*3/uL (0.00-0.03); Imm Gran Pct Auto 0.1 % (0.0-0.4); Lymphocytes Absolute Auto 2.2 X10*3/uL (1.2-4.9); Lymphocytes Percent Auto 29.8 % (20-40); Mean Corpuscular HGB Conc 35.8 g/dl (31.0-36.0); Mean Corpuscular Hemoglobin 29.8 pg (27.0-33.0); Mean Corpuscular Volume 83.2 fL (80.0-98.0); Mean Platelet Volume 8.4 fL (9.4-12.4); Monocytes Absolute Auto 0.6 X10*3/uL (0.1-1.2); Monocytes Percent Auto 8.6 % (2-11); Neutrophils Absolute Auto 4.3 x10*3/uL (2.0-8.3); Platelet Count 189 X10*3/uL (160-400); Red Blood Count 4.63 X10*6/uL (4.60-5.80); Red Cell Distribution Width 13.2 % (11.0-16.0); White Blood Count 7.2 X10*3/uL (4.8-10.8)
--- NOTE | 2023-10-25 12:46 | MHC.CM.ED ---
Received telephone call from [employer] [employer] RN. Patient was recently d/c'd from [facility]. Patient was at the PCP's office for a follow up, was found to be short of breath and was sent to the ER. Patient is active with [facility]. Reji doesn't feel patient can safely return home. Return referral sent to [facility] so they can follow for d/c needs. Copy of HCP obtained from [facility].
[2023-10-25 12:55] LABS: Alanine Aminotransferase 14 U/L (0-40); Albumin Level 3.8 g/dL (3.5-5.0); Alkaline Phosphatase 48 U/L (39-117); Anion Gap 17 (12-20); Aspartate Amino Transferase 16 U/L (5-37); Bilirubin Total 0.6 mg/dL (0.0-1.0); Blood Urea Nitrogen 31 mg/dL (9-16); Calcium 9.4 mg/dL (8.4-10.2); Carbon Dioxide 19 mmol/L (22-29); Chloride 110 mmol/L (96-108); Creatinine Clr Calc Pharmacy 40.4; Estimated Glomerular Filt Rate 43; Glucose Random 113 mg/dL (60-115); Potassium 3.9 mmol/L (3.3-5.1); Sodium 142 mmol/L (135-145); Total Protein 6.5 g/dL (6.5-8.0)
[2023-10-25 13:01] LABS: Troponin-I High Sensitivity 2.7 ng/L (<3.5-35.0)
[2023-10-25 13:17] LABS: Influenza A PCR NEGATIVE (Negative); Influenza B PCR NEGATIVE (Negative); Resp Syncy Virus RNA Qual PCR NEGATIVE (Negative); SARS COV2 PCR INHOUSE NEGATIVE (Negative)
[2023-10-25] MEDS: 0.9 % Sodium Chloride 1,000 ML 999 ML IV (13:31)
[2023-10-25] MEDS: Midodrine HCl 5 MG TABLET PO (15:44)
[2023-10-25 15:46] VITALS: BP 110/62; PULSE 77; RESP 18; TEMP 36.8; O2SAT 97
== END 2023-10-25 15:48 | disposition home or self-care (01) ==
PROVIDERS: Emergency Provider Emergency Medicine
DX: I95.9 Hypotension, unspecified (principal); R06.02 Shortness of breath; I10 Essential (primary) hypertension; E11.9 Type 2 diabetes mellitus without complications; I73.9 Peripheral vascular disease, unspecified; I71.9 Aortic aneurysm of unspecified site, without rupture; Z03.818 Encounter for observation for suspected exposure to other biological agents ruled out
CPT/HCPCS: 0241U; 71045; 80053; 84484; 85025; 93005; 96360; 96361; 99284

== ENCOUNTER → 2023-10-25 11:57 | Outpatient (BNV) | payer OTHER, SELFPAY | PROVIDERS: Emergency Provider Emergency Medicine; Visit Provider Internal Medicine Cardiovascular Disease | DX: R06.02 Shortness of breath (principal) | CPT/HCPCS: 93010 ==

== ENCOUNTER → 2023-12-09 08:51 | Outpatient (REF) | payer OTHER, SELFPAY ==
--- NOTE | 2023-12-09 08:55 | CA_ITS ---
Transthoracic Echocardiogram Patient (Last, First, Middle): Kenneth Blank L Gender: Male Date of : 1950 Age: 73 Procedure Date: 12/09/2023 Procedure Type: Transthoracic Echocardiogram Location: OP Height: 175.26 cm Weight: 63.5 kg BSA: 1.78 m2 Heart Rate: 81 bpm BP: 104 / 70 mmHg [employer]: SB Referring MD: Robb SOLANO Symptoms: R06.02 - Shortness of breath Study Quality: Adequate ECG Rhythm: Sinus Conclusions: - The left ventricular systolic function is normal. The calculated ejection fraction is 61% by biplane method. - No obvious valvular pathology seen on this study. Findings Left Ventricle Normal left ventricular cavity size. The left ventricular systolic function is normal. The calculated ejection fraction is 61% by biplane method. There is no evidence of regional wall motion abnormalities. Evidence suggests grade I (mild) diastolic dysfunction. Focal hypertrophy of the basal septum. Right Ventricle Normal right ventricular cavity size. There is mildly decreased right ventricular systolic function. Atria Both atria are normal in size. Aortic Valve There is a normal trileaflet aortic valve. There is mild calcification of the aortic valve. There is no aortic valve stenosis. There is no aortic valve regurgitation. Mitral Valve The mitral valve appears normal. There is no mitral valve regurgitation. There is no mitral valve stenosis. Pulmonic Valve The pulmonic valve is likely normal. Tricuspid Valve Normal tricuspid valve structure. There is mild tricuspid valve regurgitation. There is no evidence of pulmonary hypertension. Great Vessels The asc aorta is normal in size. Venous The inferior vena cava is normal in size and collapses greater than 50% with inspiration. Pericardium/Pleural There is no evidence of pericardial effusion. Prior Study Comparison No prior study available for comparison. Recommendations, Care & Conclusions No obvious valvular pathology seen on this study. Measurements 2D Linear Measurements IVSd: 0.89 0.6-0.9/0.6-1.0 cm LVIDd: 3.81 3.9-5.3/4.2-5.9 cm LVIDd Index: 2.14 2.4-3.2/2.2-3.1 cm/m2 LVIDs: 2.68 2.0-3.6 cm LVPWd: 0.74 0.7-1.1 cm LA Diam: 1.90 2.7-3.8/3.0-4.0 cm LAIDs Index: 1.07 1.5-2.3 cm/m2 LV Mass: 109.63 67-162/88-224 g LV Mass Index: 61.59 43-95/49-115 g/m2 LVOT Diam: 2.10 3.0+(-)1.3 cm 2D Systolic Function EF 4C: 59.60 >55% EF 2C: 62.00 >55% EF BiP: 60.70 >55% Mitral Valve MV Pk E: 0.50 MV PK A: 0.66 MV Decel Time: 206.00 E/A: 0.80 E'Lateral: 8.92 E'Medial: 3.37 E/E' Med: 14.70 E/E' Lat: 5.60 PHT: 60.00 MVA PHT: 3.67 Decel [place]: 2.41 Aortic Valve AoV Pk Adam: 0.88 AoV Pk Grad: 3.00 SAADIA: 2.44 LVOT LVOT Pk Adam: 0.70 LVOT Mn Adam: 0.46 LVOT VTI: 0.13 LVOT Pk Grad: 2.00 LVOT Mn Grad: 1.00 LVOT Diam: 2.10 LVOT Area: 3.46 Diastolic Function MV Pk E: 0.50 MV Pk A: 0.66 E/A: 0.80 E'Medial: 3.37 E/E' Med: 14.70 E' Laterial: 8.92 E/E' Lat: 5.60 Right Ventricle TAPSE (mm): 16.10 TVS' Adam: 10.80 Tricuspid Valve TR Pk Adam: 2.30 TR Pk Grad: 21.00 RA Press: 3.00 RVSP: 24.00 Great Vessels Aorta Sinus of Valsalva: 3.40 2.0-3.5 cm Ao Asc: 3.00 2.1-3.4 cm Pulmonary Valve PV Pk Adam: 1.06 Peak PV Grad: 4.00 Updated in Other Vendor System with Status of Final Dejan Hobson MD electronically signed on 12/09/2023 9:56:36 AM with status of Final
== END ==
LOC: HO.CARD 08:51
PROVIDERS: PCP Nurse Practitioner Primary Care; Visit Provider Nurse Practitioner Primary Care
DX: R06.02 Shortness of breath (principal)
CPT/HCPCS: 93306

== ENCOUNTER → 2023-12-09 08:55 | Outpatient (BNV) | payer OTHER, SELFPAY | PROVIDERS: PCP Nurse Practitioner Primary Care; Visit Provider Internal Medicine | DX: I36.1 Nonrheumatic tricuspid (valve) insufficiency (principal); I35.8 Other nonrheumatic aortic valve disorders | CPT/HCPCS: 93306 ==

== ENCOUNTER 2023-12-18 08:51 | Outpatient (AMB) | payer OTHER, SELFPAY ==
--- NOTE | 2023-12-18 09:02 | A.OFFVIS_ITS ---
Vital Signs 12/18/23 09:03 12/18/23 09:45 Height 5 ft 9 in Weight 142 lb BMI 21.0 BP 72/40 L 100/80 Blood Pressure Location Lt brachial Rt brachial Position Sitting Pulse 98 Pulse Source Pulse Oximeter Pulse Oximetry (%) 98 Oxygen Delivery Method Room Air Intake Visit Reasons: Emphysema Intake Note: pt is here as a new patient for emphysema, and possible surgery for as stent to be placed. [employer] Required: No Allergies No Known Allergies Allergy (Verified 12/18/23 09:24) Medication List - Last Reconciled 12/18/23 by Cristian Burgos MD atorvastatin 20 mg PO BEDTIME 30 days blood sugar diagnostic (TeralynkTouch Ultra Test strips) Test blood sugar 3 times per day blood-glucose meter (No Paper Just Vaporuch Ultra2 Meter) As directed clopidogrel (Plavix) 75 mg PO DAILY lancets (TeralynkTouch Delica Plus Lancet) Test blood sugar 3 times per day lancets (Easy Touch Safety Lancets) Test blood sugar 3 times per day metformin 1,000 mg PO BIDWMEAL midodrine 5 mg PO TID Do you need a note to return to daycare/school/sports/work: No HPI HPI Emphysema: Details: This 73 years old gentleman is here for pulmonary evaluation. He was recently hospitalized because of syncope and found to have hypotension, started on midodrine and blood pressure improved. During his workup chest CT scan has shown pulmonary emphysema and also aneurysm of the descending aorta. Patient is being prepared for treatment of the aortic aneurysm probably by placement of his stent. He has history of smoking cigarettes in the remote past, but quit in 1990 . Previously he has no history of any cough, wheezing or shortness of breath on exertion. Since early October of this year he has had lightheadedness and general weakness, requiring hospitalization, and he was found to have orthostatic hypotension, for which he was started on midodrine therapy. CTA of the chest confirmed the diagnosis of large aneurysm of the descending aorta , there was no evidence of pulmonary embolism. And again pulmonary emphysema was evident on the images. Along with general weakness he started experiencing some shortness of breath on walking around. He is living mostly at home , can walk around by holding on to something. He has difficulty in walking around outdoors because of his lightheadedness and general weakness, Shortness of breath, cough or wheezing is not any significant problem in his case, [facility] Medical History (Updated 12/18/23 @ 09:57 by Cristian Burgos MD) Orthostatic hypotension Pulmonary emphysema determined by X-ray SOB (shortness of breath) Hyperlipidemia Descending aortic aneurysm Diabetes Surgical History No pertinent past surgical history Family History Brother Substance use disorder Social History Household Members: None Housing: House Do you presently have visiting nurse or other home services: Yes Patient Tobacco Use Status: Former Tobacco user e-Cigarette/Vaping Use: Never Used service: Yes Current occupational status: retired Cognitive needs: No Hearing needs: No Vision needs: Yes Review of Systems Const All systems reviewed & are unremarkable except as noted in HPI and below Eyes Reports no additional complaints ENT Details: edentulous Card Reports syncope (postural ), Denies irregular heart rhythm and Denies leg edema Resp Reports as per HPI GI Reports no additional complaints Reports no additional complaints Musc Reports no additional complaints Skin/Breast Reports system reviewed and no additional complaints, except as documented Neuro Reports syncope (postural ) Psych Reports no additional complaints Endo Reports no additional complaints Slim/Lymph Reports no additional complaints Physical Exam Vital Signs: Last Vital Signs Pulse 98 12/18/23 09:03 BP 72/40 L 12/18/23 09:03 Pulse Ox 98 12/18/23 09:03 Oxygen Delivery Method Room Air 12/18/23 09:03 BMI result Body Mass Index 21.0 Initial blood pressure reading 72/40 , checked 2nd time and it is 100/80 Patient showing no distress. Const General: comfortable, no acute distress, alert and awake Orientation/consciousness: patient oriented x3 HEENT Head: Yes normal to inspection General nose exam: No nasal polyps present and No nasal discharge present Face and sinus: Yes sinuses nontender Mouth: oropharynx normal Teeth and gingiva: edentulous Throat: Yes posterior oropharynx normal Eyes General: appearance normal, both eyes and all related structures Neck Neck: Yes normal visual inspection, Yes no lymphadenopathy, Yes trachea midline and Yes no JVD Thyroid: Thyroid normal Chest Chest palpation & inspection: normal inspection of the chest, normal palpation of entire chest wall and no tenderness Resp Other: Percussion note is resonant. As equal breath sounds on both sides, slightly distant. No wheezes rhonchi or crepitations are heard. Cardio Palpation: normal PMI Rate: regular rate Rhythm: regular rhythm Heart sounds: no gallops and no murmurs GI Palpation (GI): Soft to palpation, nontender, No hepatosplenomegaly present and no masses Auscultation: normal bowel sounds Back/Spine/Pelvis Thoracic/Lumbar Spine: thoracic and lumbar spine normal to inspection Skin General skin exam: no rashes or lesions noted Neuro General: patient oriented x3 and no focal motor deficits Cranial nerves: Yes CN's II-XII intact bilaterally Extrem General: Yes normal to inspection, Yes no clubbing, cyanosis or edema and Yes no calf tenderness Psych Appearance: grossly normal and well kempt Speech and movement: Normal speech and movement present Office Procedures Spirometry Testing Spirometry Comments: Spirometry done in the office, Dr. Burgos has the results results scanned to his chart. [id number] Spirometry Results Reviewed Results Reviewed: SPIROMETRY PERFORMED IN THE OFFICE: FVC 64%, FEV1 82%, FEV1/FVC 95 FEF 25-75 % 150 C/W MILD TO MODERATE RESTRICTIVE DISORDER BUT THERE IS NO EVIDENCE OF OBSTRUCTIVE AIRWAY DISORDER. Assessment & Plan Assessment & Plan (1) Pulmonary emphysema determined by X-ray: Comment: PATIENT WITH REMOTE HISTORY OF SMOKING, AND NO RESPIRATORY SYMPTOMS, FOUND TO HAVE PULMONARY EMPHYSEMA ON IMAGING. SPIROMETRY INDICATES MILD TO MODERATE RESTRICTIVE PATTERN. THERE IS NO EVIDENCE OF ANY OBSTRUCTIVE AIRWAY DISORDER. * HE DOES NOT NEED ANY FOLLOW-UP APPOINTMENT AT THE PULMONARY OFFICE ACCEPT IF NEEDED IN FUTURE. Code(s): J43.9 - Emphysema, unspecified Category: Medical Plan: EXPLAINED TO THE PATIENT THAT HE DOES NOT NEED ANY RESPIRATORY MEDS. GIVEN INCENTIVE SPIROMETRY DEVICE AND EDUCATED TO DO DEEP BREATHING EXERCISES EVERY 2 HOURS WHILE AWAKE. (2) Dyspnea on exertion: Comment: DYSPNEA ON EXERTION IS PART OF GENERAL WEAKNESS WHICH SEEM TO BE RELATED TO ORTHOSTATIC HYPOTENSION. Code(s): R06.09 - Other forms of dyspnea Category: Medical Plan: EXPLAINED TO THE PATIENT, HE SHOULD BE CAREFUL WHEN WALKING AROUND AND HOLD ON TO SOMETHING. (3) Orthostatic hypotension: Comment: HIS MAJOR PROBLEM SEEMS TO BE ORTHOSTATIC HYPOTENSION, WHICH HAS RESULTED IN NEAR SYNCOPAL EPISODES. HIS BLOOD PRESSURE WAS RELATIVELY ON THE LOW SIDE. Code(s): I95.1 - Orthostatic hypotension Category: Medical Plan: I ADVISED HIM AND STRESSED THAT HE SHOULD CONTINUE TO DRINK PLENTY OF FLUIDS, A ND DO NOT MISS TAKING MIDODRINE 5 MG T.I.D.. (4) Descending thoracic aortic aneurysm: Comment: HAS A LARGE FUSIFORM ANEURYSM OF THE DESCENDING AORTA. HE IS IN THE PROCESS OF MAKING APPOINTMENT WITH VASCULAR SERVICE AT [facility], AND WOULD NEED ENDOVASCULAR REPAIR. Code(s): I71.23 - Aneurysm of the descending thoracic aorta, without rupture Category: Medical Qualifiers: Presence of rupture: without rupture Qualified Code(s): I71.23 - Aneurysm of the descending thoracic aorta, without rupture Plan: ABOVE Coding Level of Care Code New Pt Level 4 (44727) Diagnoses Pulmonary emphysema determined by X-ray J43.9 Dyspnea on exertion R06.09 Orthostatic hypotension I95.1 Aneurysm of descending thoracic aorta without rupture I71.23 Presence of rupture: without rupture CPT Codes Spirometry - CPT: 80814- Spirometry ([id number])
[2023-12-18 09:03] VITALS: BP 72/40; PULSE 98; O2SAT 98; BMI 21.0
[2023-12-18 09:45] VITALS: BP 100/80
== END 2023-12-18 09:45 | disposition home or self-care (01) ==
PROVIDERS: PCP Nurse Practitioner Primary Care; Referring Provider Nurse Practitioner Primary Care; Visit Provider Internal Medicine
DX: J43.9 Emphysema, unspecified (principal); R06.09 Other forms of dyspnea; I95.1 Orthostatic hypotension; I71.23 Aneurysm of the descending thoracic aorta, without rupture
CPT/HCPCS: 94010; 99204

== ENCOUNTER → 2023-12-18 08:51 | Outpatient (BNVA) | payer OTHER, SELFPAY | PROVIDERS: PCP Nurse Practitioner Primary Care; Referring Provider Nurse Practitioner Primary Care; Visit Provider Internal Medicine | DX: J43.9 Emphysema, unspecified (principal); R06.09 Other forms of dyspnea; I95.1 Orthostatic hypotension; I71.23 Aneurysm of the descending thoracic aorta, without rupture | CPT/HCPCS: 94010; 99202 ==

== ENCOUNTER 2023-12-23 14:03 | Outpatient (AMB) | payer OTHER, SELFPAY ==
--- NOTE | 2023-12-23 14:04 | MHC.PC.OV ---
Vital Signs 12/23/23 14:06 Height 5 ft 9 in BMI Reason not done Patient refused/unable BP 108/66 Blood Pressure Location Rt brachial Position Sitting Pulse 74 Pulse Source Pulse Oximeter Pulse Oximetry (%) 98 Oxygen Delivery Method Room Air Intake Visit Reasons: Followup meds Intake Note: pt is here for med f/u Allergies No Known Allergies Allergy (Verified 12/23/23 14:05) Tobacco use date assessed: 12/23/23 Fall risk assessment: 1 Fall in past year Last assessed Fall Risk: 12/23/23 Dental Screening Dental Screen Date: 07/15/23 HPI HPI Comments History of Present Illness Details Patient is a 73-year-old male in today for medication review. Patient is a type 2 diabetic who has been unable to initiate insulin therapy due to difficulty and measuring blood sugar measurements at home even after several Education sessions in office. Patient is currently utilizing 1000 mg metformin b.i.d., was trialed on Jardiance but was taken off due to metabolic acidosis. Patient had also been trialed on Januvia but stopped 3 weeks prior to this appointment. He states he felt like he no longer needed that medication. He is also taking 20 mg p.o. atorvastatin Patient had recent appointment with pulmonology that determined he had emphysema with no bronchoconstriction process. Patient quit smoking in 1990. Has a history with hypotension, utilizing my to drink 5 mg p.o. t.i.d. with good effect. Patient also needs to have reinforcement to have adequate liquid intake. He has visiting nurse as well as establish care with elder care. Is being followed by vascular surgery for an aortic aneurysm. Patient is currently on Plavix. Patient is still experiencing dyspnea on exertion. Had echocardiogram on file. Will refer to Cardiology. His in office A1c today is 7.2. Denies symptoms of polyuria polydipsia. [facility] Medical History Orthostatic hypotension Pulmonary emphysema determined by X-ray SOB (shortness of breath) Hyperlipidemia Descending aortic aneurysm Diabetes Surgical History No pertinent past surgical history Family History Brother Substance use disorder Social History Household Members: None Housing: House Do you presently have visiting nurse or other home services: Yes Patient Tobacco Use Status: Former Tobacco user e-Cigarette/Vaping Use: Never Used service: Yes Current occupational status: retired Cognitive needs: No Hearing needs: No Vision needs: Yes Questionnaire Thrive Questionnaire Date Thrive assessed: 10/16/23 AUDIT C Alcohol Use Questionnaire (AUDIT-C) 1. How often do you have a drink containing alcohol?: Never 3. How often do you have six or more drinks on one occasion?: Never Total Score: 0 Score Reviewed/Action Taken: Yes JUDY-7 AMB Questionnaire JUDY-7 Date JUDY - 7 assessed: 06/13/23 Source: Developed by Drs. Cole Still, Jovanna Gabriel, Hugo Silva and colleagues, with an educational arturo from [employer]. Review of Systems Const All systems reviewed & are unremarkable except as noted in HPI and below Physical exam (Primary Care) Vital Signs: Last Vital Signs Pulse 74 12/23/23 14:06 BP 108/66 12/23/23 14:06 Pulse Ox 98 12/23/23 14:06 Oxygen Delivery Method Room Air 12/23/23 14:06 Care Plan Goal for BP management: Blood pressure is controlled. Tobacco/Smoking Status: Tobacco use Status Tobacco use date assessed 12/23/23 12/23/23 14:10 Patient Tobacco Use Status Former Tobacco user 12/23/23 14:10 e-Cigarette/Vaping Use Never Used 12/23/23 14:10 Thrive Assessment: Date of Thrive Assessment Date Thrive assessed 10/16/23 12/23/23 14:10 Const Other: Appearance: Alert.? Oriented X3.? No acute distress.? Head: Normocephalic, atraumatic, no step-offs or deformities Eyes: Pupils equal, round and reactive to light.? Neck: Normal inspection.? Neck supple.? CVS: Normal heart rate and rhythm.? Pulses normal.? Respiratory: No respiratory distress.? Breath sounds normal.? Neuro: Oriented X 3.? No motor deficit.? No sensory deficit. CN 2-12 intact Results AMB Hemoglobin A1c AMB Hemoglobin A1c 7.2 % Last Edit by Martin Aquino CMA on 12/23/23 14:50 Assessment and Plan Assessment & Plan (1) Orthostatic hypotension: Comment: Patient utilizing Midodrine 5 mg p.o. t.i.d. Code(s): I95.1 - Orthostatic hypotension (2) Dyspnea on exertion: Comment: DYSPNEA ON EXERTION IS PART OF GENERAL WEAKNESS WHICH SEEM TO BE RELATED TO ORTHOSTATIC HYPOTENSION. Patient underwent physical therapy. Has Elder Care Services as well as visiting nurse. Patient also has referral for Cardiology Code(s): R06.09 - Other forms of dyspnea (3) Descending thoracic aortic aneurysm: Comment: HAS A LARGE FUSIFORM ANEURYSM OF THE DESCENDING AORTA. HE IS IN THE PROCESS OF MAKING APPOINTMENT WITH VASCULAR SERVICE AT [facility], AND WOULD NEED ENDOVASCULAR REPAIR. Code(s): I71.23 - Aneurysm of the descending thoracic aorta, without rupture Qualifiers: Presence of rupture: without rupture Qualified Code(s): I71.23 - Aneurysm of the descending thoracic aorta, without rupture (4) Hyperlipidemia: Comment: Utilizing 20 mg p.o. atorvastatin Code(s): E78.5 - Hyperlipidemia, unspecified Qualifiers: Hyperlipidemia type: unspecified Qualified Code(s): E78.5 - Hyperlipidemia, unspecified (5) Diabetes: Comment: Patient is utilizing 1000 mg p.o. b.i.d. of metformin. In office A1c is 7.2 today. This is down from 11.7. Patient has referral to Ophthalmology and Podiatry. Code(s): E11.9 - Type 2 diabetes mellitus without complications Qualifiers: Diabetes mellitus type: type 2 Diabetes mellitus longterm insulin use: without longterm use Diabetes mellitus complication status: with hyperglycemia Qualified Code(s): E11.65 - Type 2 diabetes mellitus with hyperglycemia Plan Follow-up in 3 months and draw labs. Orders: Orders Vitamin D 25-OH (D2 and D3) Today Z13.21 - Encounter for screening for nutritional disorder UA CC w/rflx Micro + Cult Today Z13.89 - Encounter for screening for other disorder Comprehensive Met. Panel Today Z91.89 - Other specified personal risk factors, not elsewhere classified Lipid Panel Today Z13.220 - Encounter for screening for lipoid disorders AMB Hemoglobin A1c Today E11.65 - Type 2 diabetes mellitus with hyperglycemia Complete Blood Count Auto Diff Today Z13.0 - Encounter for screening for diseases of the blood and blood-forming organs and certain disorders involving the immune mechanism Coding Level of Care Code Est Pt Level 3 (72841) Diagnoses Orthostatic hypotension I95.1 Dyspnea on exertion R06.09 Aneurysm of descending thoracic aorta without rupture I71.23 Presence of rupture: without rupture Hyperlipidemia, unspecified hyperlipidemia type E78.5 Hyperlipidemia type: unspecified Type 2 diabetes mellitus with hyperglycemia, without long-term current use of insulin E11.65 Diabetes mellitus type: type 2 Diabetes mellitus manager quality insulin use: without longterm use Diabetes mellitus complication status: with hyperglycemia Time Spent (min) 27
[2023-12-23 14:06] VITALS: BP 108/66; PULSE 74; O2SAT 98
== END 2023-12-23 14:52 | disposition home or self-care (01) ==
LOC: HO.HMGC 14:03
PROVIDERS: PCP Nurse Practitioner Primary Care; Visit Provider Nurse Practitioner Primary Care
DX: I95.1 Orthostatic hypotension (principal); R06.09 Other forms of dyspnea; I71.23 Aneurysm of the descending thoracic aorta, without rupture; E78.5 Hyperlipidemia, unspecified; E11.65 Type 2 diabetes mellitus with hyperglycemia
CPT/HCPCS: 83036; 99213

== ENCOUNTER 2024-03-23 11:44 | Outpatient (AMB) | payer OTHER, SELFPAY ==
--- NOTE | 2024-03-23 12:29 | MHC.PC.OV ---
Vital Signs 03/23/24 12:41 03/23/24 12:55 Height 5 ft 9 in Weight 144 lb BMI 21.3 BP 84/60 L 100/70 Blood Pressure Location Lt brachial Rt brachial Position Sitting Sitting Pulse 72 Pulse Source Pulse Oximeter Pulse Oximetry (%) 100 Oxygen Delivery Method Room Air Intake Visit Reasons: Transfer from [facility]/3 month follow up DM Intake Note: Pt is here today transfer from [facility] [place]. f/u DM Allergies No Known Allergies Allergy (Verified 03/23/24 12:45) Medication List - Last Reconciled 03/23/24 by Iman Brand MD atorvastatin 20 mg PO BEDTIME blood sugar diagnostic ([employer] Ultra Test strips) Test blood sugar 3 times per day blood-glucose meter ([employer] Ultra2 Meter) As directed clopidogrel (Plavix) 75 mg PO DAILY lancets ([employer] Delica Plus Lancet) Test blood sugar 3 times per day lancets (Easy Touch Safety Lancets) Test blood sugar 3 times per day metformin 1,000 mg PO BIDWMEAL midodrine 5 mg PO TID Tobacco use date assessed: 03/23/24 Fall risk assessment: No Falls in past year Last assessed Fall Risk: 03/23/24 Dental Screening Dental Screen Date: 03/23/24 Did you have a dental visit in the last 12 months?: No Did you have a dental problem in the last 6 months where you did not have access to dental care?: No Was dental information given to patient?: Patient declined HPI Transfer from [facility]/3 month follow up DM HPI Details 74-year-old male with Diabetes mellitus , HTN, HLD, PAD, descending aortic aneurysm seen and evaluated by Dr. Hua, recent ED visits (09/04/23, 09/19/23, 09/24/23, 10/15/23) for near syncopal episodes with generalized weakness in the setting of orthostatic dizziness;, here today for follow-up. He has been taking metformin a 1000 mg 1 tablet twice a day with meals, but unable to name the rest of his medications, and has not been checking his blood sugar , has his glucometer and has been shown how to use it by previous PCP and the diabetic nurse. He states that he usually just eats 1 meal a day, does not cook, eating mostly prepared meals... He was noted again to be hypotensive on this visit, but denies any complaints of lightheadedness, no chest pain, no shortness of breath, no dizziness reported. Repeat blood pressure showed some improvement . Has been started on midodrine to be taken 3 times a day but patient could not recall whether he is taking this medicine or not. Hemoglobin A1c today is at 8.0 %, higher than last check in December at 7.2%. He has been referred to podiatry and ophthalmology for his routine diabetes foot screening and eye exam, but patient could not recall he went to an appointment or not. No consult report seen in his medical record. He lives close by and states that he drives himself everywhere. [facility] Medical History (Updated 03/28/24 @ 23:56 by Iman Brand MD) Self neglect Diabetes mellitus with hyperglycemia, without long-term current use of insulin Dyspnea on exertion Orthostatic hypotension Pulmonary emphysema determined by X-ray Hyperlipidemia Descending aortic aneurysm Surgical History No pertinent past surgical history Family History Brother Substance use disorder Social History Household Members: None Housing: House Do you presently have visiting nurse or other home services: Yes Patient Tobacco Use Status: Former Tobacco user e-Cigarette/Vaping Use: Never Used service: Yes Current occupational status: retired Cognitive needs: No Hearing needs: No Vision needs: Yes Questionnaire Thrive Questionnaire Date Thrive assessed: 10/16/23 I am a: Patient What is your living situation today?: I have a steady place to live Within the past 12 months, did the food you bought not last and you didn't have the money to get more?: Never true Within the past 12 months, did you worry whether your food would run out before you got money to buy more?: Never true Do you have trouble paying for medicines?: No Do you have trouble getting transportation to medical appointments?: No Do you have trouble paying your heating and electricity bill?: No Do you have trouble taking care of your child, family member or friend?: No Do you have trouble with day-to-day activities such as bathing, preparing meals, shopping, managing finances, etc.?: No Are you currently unemployed and looking for a job?: No Are you interested in more education?: No THRIVE Score: 0 JUDY-7 AMB Questionnaire JUDY-7 Date JUDY - 7 assessed: 06/13/23 Source: Developed by Drs. Cole Still, Jovanna Gabriel, Hugo Silva and colleagues, with an educational arturo from [employer]. Review of Systems Const Denies chills, Denies fever(s), Denies headache(s) and Reports weakness Eyes Denies blurry vision ENT Reports dizziness (when standing up quick , resolves spontaneously) and Denies headache(s) Card Denies chest pain and Reports dyspnea on exertion Resp Denies chest congestion, Denies cough and Reports dyspnea on exertion GI Denies abdominal pain, Denies change in bowel habits, Denies diarrhea, Denies nausea and Denies vomiting Reports no additional complaints Musc Reports arthralgias and Reports stiffness Skin/Breast Reports dry skin, Denies lesions and Denies sores Neuro Reports confusion, Reports dizziness (when standing up quick , resolves spontaneously), Denies headache(s), Reports memory loss and Reports weakness Psych Reports confusion and Reports memory loss Endo Reports no additional complaints Slim/Lymph Reports no additional complaints Aller/Immun Reports no additional complaints Physical exam (Primary Care) Vital Signs: Last Vital Signs Pulse 72 03/23/24 12:41 BP 100/70 03/23/24 12:55 Pulse Ox 100 03/23/24 12:41 Oxygen Delivery Method Room Air 03/23/24 12:41 BMI result Body Mass Index 21.3 Tobacco/Smoking Status: Tobacco use Status Tobacco use date assessed 03/23/24 03/23/24 12:38 Patient Tobacco Use Status Former Tobacco user 03/23/24 12:29 e-Cigarette/Vaping Use Never Used 03/23/24 12:29 Thrive Assessment: Date of Thrive Assessment Date Thrive assessed 10/16/23 03/23/24 12:29 Const General: confusion and poor hygiene Orientation/consciousness: confusion HENMT Head: Yes normocephalic and Yes atraumatic Ears: external ears normal, TM's normal bilaterally and EAC's normal General nose exam: Normal external nose present and No nasal discharge present Face and sinus: Yes face symmetric Mouth: Normal oral and palatal mucosa present, oropharynx normal and moist mucous membranes Eyes General: appearance normal, both eyes and all related structures Conjunctivae: conjunctivae normal Sclerae: sclerae normal Pupils: Equal, round and reactive pupils present EOM: EOMs intact bilaterally Neck Neck: Yes full ROM, Yes no lymphadenopathy and Yes supple Resp Effort & Inspection: normal respiratory effort and able to speak in complete sentences Auscultation: clear to auscultation bilaterally Cardio Rate: regular rate Rhythm: regular rhythm Heart sounds: S1 normal heart sound present and S2 normal heart sound present GI Palpation (GI): Soft to palpation, nontender and no masses Auscultation: normal bowel sounds Back/Spine/Pelvis Back: No back tenderness Skin General skin exam: no rashes or lesions noted and dry skin Nails: yellow and thickened Neuro General: confusion Cranial nerves: Yes CN's II-XII intact bilaterally and Yes Equal, round and reactive pupils present Cognition (Neuro): normal cognition Extrem General: Yes full ROM, Yes no joint enlargement, Yes no clubbing, cyanosis or edema and Yes no calf tenderness Psych Appearance: grossly normal and well kempt Mental Status: mental status grossly normal Speech and movement: Normal speech and movement present Affect: normal affect Attitude: cooperative Thought process: Impoverished thought process present and Tangential thought process present Results AMB Hemoglobin A1c AMB Hemoglobin A1c 8.0 % Last Edit by Johanna Morgan CMA on 03/23/24 12:46 Results Reviewed Results Reviewed: Laboratory Last Values Hgb A1c (Clinic) 8.0 % (4.0-6.0) H 03/23/24 12:38 Coding Level of Care Code Est Pt Level 4 (37773) Complex EM visit Add On G2211 Diagnoses Orthostatic hypotension I95.1 Pulmonary emphysema determined by X-ray J43.9 Aneurysm of descending thoracic aorta without rupture I71.23 Presence of rupture: without rupture Hyperlipidemia, unspecified hyperlipidemia type E78.5 Hyperlipidemia type: unspecified Diabetes mellitus with hyperglycemia, without long-term current use of insulin E11.65 Self neglect R46.89 Assessment & Plan Assessment & Plan (1) Orthostatic hypotension: Comment: Patient was started on Midodrine 5 mg p.o. t.i.d. Code(s): I95.1 - Orthostatic hypotension Category: Medical Plan: Noted to be hypertensive today but not symptomatic. Has been placed on midodrine, but unsure whether patient has been taking his medicines correctly or regularly. (2) Pulmonary emphysema determined by X-ray: Comment: PATIENT WITH REMOTE HISTORY OF SMOKING, AND NO RESPIRATORY SYMPTOMS, FOUND TO HAVE PULMONARY EMPHYSEMA ON IMAGING. SPIROMETRY INDICATES MILD TO MODERATE RESTRICTIVE PATTERN. THERE IS NO EVIDENCE OF ANY OBSTRUCTIVE AIRWAY DISORDER. * HE DOES NOT NEED ANY FOLLOW-UP APPOINTMENT AT THE PULMONARY OFFICE ACCEPT IF NEEDED IN FUTURE. Code(s): J43.9 - Emphysema, unspecified Category: Medical Plan: Patient without any symptoms. (3) Descending thoracic aortic aneurysm: Comment: HAS A LARGE FUSIFORM ANEURYSM OF THE DESCENDING AORTA. HE IS IN THE PROCESS OF MAKING APPOINTMENT WITH VASCULAR SERVICE AT [facility], AND WOULD NEED ENDOVASCULAR REPAIR. Code(s): I71.23 - Aneurysm of the descending thoracic aorta, without rupture Category: Medical Qualifiers: Presence of rupture: without rupture Qualified Code(s): I71.23 - Aneurysm of the descending thoracic aorta, without rupture Plan: He has been seen by Dr. Hua for evaluation , has a stable descending thoracic aortic aneurysm, and is amenable to endovascular repair. He states that he should be referred to a tertiary care center to be better served for this as [facility] is not equipped and do not have appropriate CT surgery backup. He has reached out to several institutions in [place] , unfortunately due to his insurance the only hospital that will accept this is [facility]. He is trying to expedite getting him into a vascular surgeon there, but patient does not seem to have any body who can take him to [place] no appointment has been set as of yet. (4) Hyperlipidemia: Comment: Utilizing 20 mg p.o. atorvastatin Code(s): E78.5 - Hyperlipidemia, unspecified Category: Medical Qualifiers: Hyperlipidemia type: unspecified Qualified Code(s): E78.5 - Hyperlipidemia, unspecified Plan: Currently on atorvastatin 20 mg at night. Not get his labs done ordered by previous PCP, will order a repeat fasting lipid panel liver enzymes (5) Diabetes mellitus with hyperglycemia, without long-term current use of insulin: Code(s): E11.65 - Type 2 diabetes mellitus with hyperglycemia Category: Medical Plan: Hemoglobin A1c today is at 8%, higher than last check, patient states that he has been taking metformin unsure whether he is taking it on a regular basis. Will add Januvia 50 mg once a day. He has not yet been seen for his diabetes eye exam were diabetes foot exam referral is already were made by previous PCP.. Reminded to get his updated COVID booster and flu vaccine, up-to-date with his pneumonia vaccination and shingles vaccination (6) Self neglect: Code(s): R46.89 - Other symptoms and signs involving appearance and behavior Category: Medical Plan: Patient unable to recall medications and when to take them, based on talking to the patient today, it seems that he has not been eating regularly, lives alone, VNA services has been completed 2 months ago, unsure whether he has his knees visiting him on regular basis. He has been advised by vascular surgery that he needs to go to [facility] for definitive treatment of his aneurysm, but patient states he has no way of going there, and nobody to take care of him afterwards. Will refer for Adult Protective Services. Orders: Orders IRON PROFILE 03/23/24 D64.9 - Anemia, unspecified, E11.65 - Type 2 diabetes mellitus with hyperglycemia, E78.5 - Hyperlipidemia, unspecified, I71.23 - Aneurysm of the descending thoracic aorta, without rupture, I95.1 - Orthostatic hypotension, R68.89 - Other general symptoms and signs Complete Blood Count Auto Diff 03/23/24 D64.9 - Anemia, unspecified, E11.65 - Type 2 diabetes mellitus with hyperglycemia, E78.5 - Hyperlipidemia, unspecified, I71.23 - Aneurysm of the descending thoracic aorta, without rupture, I95.1 - Orthostatic hypotension, R68.89 - Other general symptoms and signs Comprehensive [place]. Panel Fast 03/23/24 D64.9 - Anemia, unspecified, E11.65 - Type 2 diabetes mellitus with hyperglycemia, E78.5 - Hyperlipidemia, unspecified, I71.23 - Aneurysm of the descending thoracic aorta, without rupture, I95.1 - Orthostatic hypotension, R68.89 - Other general symptoms and signs Vitamin D 25-OH Total 03/23/24 D64.9 - Anemia, unspecified, E11.65 - Type 2 diabetes mellitus with hyperglycemia, E78.5 - Hyperlipidemia, unspecified, I71.23 - Aneurysm of the descending thoracic aorta, without rupture, I95.1 - Orthostatic hypotension, R68.89 - Other general symptoms and signs AMB Hemoglobin A1c 03/23/24 E11.65 - Type 2 diabetes mellitus with hyperglycemia Lipid Panel 03/23/24 D64.9 - Anemia, unspecified, E11.65 - Type 2 diabetes mellitus with hyperglycemia, E78.5 - Hyperlipidemia, unspecified, I71.23 - Aneurysm of the descending thoracic aorta, without rupture, I95.1 - Orthostatic hypotension, R68.89 - Other general symptoms and signs Vitamin B12 and Folate 03/23/24 D64.9 - Anemia, unspecified, E11.65 - Type 2 diabetes mellitus with hyperglycemia, E78.5 - Hyperlipidemia, unspecified, I71.23 - Aneurysm of the descending thoracic aorta, without rupture, I95.1 - Orthostatic hypotension, R68.89 - Other general symptoms and signs Medications: New sitagliptin phosphate (Januvia) 50 mg PO DAILY 30 tabs 3RF
[2024-03-23 12:41] VITALS: BP 84/60; PULSE 72; O2SAT 100; BMI 21.3
[2024-03-23 12:55] VITALS: BP 100/70
== END 2024-03-23 14:34 | disposition home or self-care (01) ==
PROVIDERS: PCP Nurse Practitioner Primary Care; Visit Provider Internal Medicine
DX: I95.1 Orthostatic hypotension (principal); J43.9 Emphysema, unspecified; I71.23 Aneurysm of the descending thoracic aorta, without rupture; E11.65 Type 2 diabetes mellitus with hyperglycemia; E78.5 Hyperlipidemia, unspecified; R46.89 Other symptoms and signs involving appearance and behavior

== ENCOUNTER → 2024-03-23 11:44 | Outpatient (BNVA) | payer OTHER, SELFPAY | PROVIDERS: PCP Nurse Practitioner Primary Care; Visit Provider Internal Medicine | DX: E11.65 Type 2 diabetes mellitus with hyperglycemia (principal); I95.1 Orthostatic hypotension; J43.9 Emphysema, unspecified; I71.23 Aneurysm of the descending thoracic aorta, without rupture; E78.5 Hyperlipidemia, unspecified; R46.89 Other symptoms and signs involving appearance and behavior | CPT/HCPCS: 83036; 99212 ==